=== PATIENT | male | born 1940 | race Caucasian/White ===

== ENCOUNTER 2016-08-19 17:58 | Emergency (ER) | payer MEDICARE ==
[2016-08-19] MEDS ORDERED: SODIUM CHLORIDE 0.9% 500 ML IV STA (18:19)
[2016-08-19] MEDS ORDERED: MECLIZINE 12.5 MG TAB PO STA (18:19)
[2016-08-19] MEDS ORDERED: SODIUM CHLORIDE 0.9% 1,000 ML IV STA (18:19)
[2016-08-19 18:42] LABS: Basophils % (A) 0 %; CH 31.2; CHCM 34.8; Eosinophils # (A) 0.1 k/uL (0-0.7); Eosinophils % (A) 1 %; HCT 38.3 % (39.0-53.0); HGB 13.5 gm/dL (13.0-17.5); Luc # (Auto) 0.11; Luc % (Auto) 1; Lymphocytes # (A) 1.1 k/uL (1.0-4.8); Lymphocytes % (A) 14 %; MCH 31.7 pg (25.0-35.0); MCHC 35.3 g/dL (31.0-37.0); Mean Platelet Volume 7.3; Monocytes # (A) 0.5 k/uL (0-1.0); Monocytes % (A) 7 %; Neutrophils % (A) 77 %; RBC 4.25 m/uL (4.30-5.90); RDW 12.9 % (11.5-15.5); WBC 7.8 k/uL (3.8-10.6); WBC (Perox) 7.39
--- NOTE | 2016-08-19 18:43 | ED ---
Dizziness HPI - General Chief Complaint: Dizziness Stated Complaint: dizziness Time Seen by Provider: 08/19/16 18:10 Source: patient, EMS Mode of arrival: EMS Limitations: no limitations - History of Present Illness Initial Comments: Planing about lightheadedness for the last 3 days, he stated has been unsteady in her balance has been poor. He had some medication changes by his family doctor, he stated that is one of the neuropathy medication she been on for a week now. He denies any headaches no chest pain no shortness of breath no pleuritic chest pain no fever no chills he does sweat quite a quite a lot but has not new - Related Data Home Medications Medication Instructions Recorded Confirmed Aspirin 81 mg PO DAILY 08/19/16 08/19/16 Atorvastatin [Lipitor] 40 mg PO DAILY 08/19/16 08/19/16 Calcium Carbonate/Vitamin D3 1 tab PO DAILY 08/19/16 08/19/16 [Calcium 500-Vit D3 200 Tablet] Furosemide [Lasix] 40 mg PO DAILY 08/19/16 08/19/16 Gabapentin [Neurontin] 300 - 600 mg PO HS 08/19/16 08/19/16 Glimepiride [Amaryl] 4 mg PO BID 08/19/16 08/19/16 Glucosam/Johnny-Msm1/C/Drew/Bosw 1 tab PO DAILY 08/19/16 08/19/16 [Glucosamine-Chondroitin Tablet] Lisinopril [Zestril] 20 mg PO DAILY 08/19/16 08/19/16 Metoprolol Succinate (ER) [Toprol 25 mg PO DAILY 08/19/16 08/19/16 Xl] Pioglitazone [Actos] 30 mg PO DAILY 08/19/16 08/19/16 Potassium Chloride [K-Tab ER] 10 meq PO DAILY 08/19/16 08/19/16 Tamsulosin HCl [Flomax] 0.4 mg PO DAILY 08/19/16 08/19/16 metFORMIN HCL [Glucophage] 1,000 mg PO BID 08/19/16 08/19/16 Allergies Allergy/AdvReac Type Severity Reaction Status Date / Time No Known Allergies Allergy Verified 08/19/16 19:05 Review of Systems ROS Statement: Those systems with pertinent positive or pertinent negative responses have been documented in the HPI. ROS Other: All systems not noted in ROS Statement are negative. Past Medical History Past Medical History: No Reported History History of Any Multi-Drug Resistant Organisms: None Reported Past Surgical History: Orthopedic Surgery Additional Past Surgical History / Comment(s): shoulder repracement, knee replacement, hip replacement Past Psychological History: No Psychological Hx Reported Smoking Status: Never smoker Past Alcohol Use History: None Reported Past Drug Use History: None Reported General Exam - General Exam Comments Initial Comments: General: The patient is awake and alert, in no distress, and does not appear acutely ill. He does look tired but GCS is 15 Skin: Skin is warm and dry and no rashes or lesions are noted. Eye: Pupils are equal, round and reactive to light, extra-ocular movements are intact; there is normal conjunctiva bilaterally. Ears, nose, mouth and throat: There are moist mucous membranes and no oral lesions. Neck: The neck is supple, there is no tenderness or JVD. Cardiovascular: There is a regular rate and rhythm. No murmur, rub or gallop is appreciated. Respiratory: To auscultation bilateral, no wheezing no rhonchi no distress respiratory leyva noticed Gastrointestinal: Soft, non-distended, non-tender abdomen without masses or organomegaly noted. There is no rebound or guarding present. Bowel sounds are unremarkable. Back: There is no tenderness to palpation in the midline. There is no obvious deformity. Musculoskeletal: Normal ROM, no tenderness, There is no pedal edema. There is no calf tenderness or swelling. No cords were appreciated. Neurological: CN II-XII intact, Cranial nerves III through XII are intact. There are no obvious motor or sensory deficits. Coordination appears grossly intact. Speech is normal. Psychiatric: Cooperative, appropriate mood & affect, normal judgment. Limitations: no limitations Course Vital Signs 08/19/16 08/19/16 08/19/16 18:01 18:07 18:37 Temperature 97.3 F L Pulse Rate 73 Pulse Rate [ 74 Sitting] Pulse Rate [ 83 Standing] Pulse Rate [ 81 Supine] Respiratory 18 20 Rate Blood Pressure 138/73 Blood Pressure 118/60 [Sitting] Blood Pressure 118/63 [Standing] Blood Pressure 127/67 [Supine] O2 Sat by Pulse 96 Oximetry 08/19/16 08/19/16 08/19/16 19:45 20:13 20:58 Temperature 98.1 F Pulse Rate 83 73 91 Pulse Rate [ Sitting] Pulse Rate [ Standing] Pulse Rate [ Supine] Respiratory 20 15 18 Rate Blood Pressure 103/58 113/66 141/67 Blood Pressure [Sitting] Blood Pressure [Standing] Blood Pressure [Supine] O2 Sat by Pulse 97 97 94 L Oximetry Patient was reassessed at 02/03/1945 and all his labs and imaging were reviewed and discussed with the family and the patient is CBC, CMP, chest x-ray, troponin and head CT including chest x-ray is unremarkable we can see how well he ambulates and then also recommended that he couldn't hold off his neuropathy medication which was started about a week ago All the patient was reassessed at term 2109, all his labs are negative troponin is negative chest x-rays Coumadin he hasn't no chest pain he ambulated well with the nurse with oral and he was to go, considering the EKG EKG does look somewhat different we'll place he has no chest pain patient was encouraged to see cardiology inpatient or outpatient patient said he wants to hold this off for now he wants to go to the patient was discharged at 2149 EKG Findings - EKG Comments: EKG Findings:: EKG is normal sinus rhythm ventricular rate of 72 PA interval is 170 QRS duration is 150 QT/QTc is 424/478 review of this EKG does show a right bundle-branch block no ST elevation noticed this EKG, do not have an old EKG to compare with Medical Decision Making - Lab Data Result diagrams: 08/19/16 18:03 08/19/16 18:03 Lab Results 08/19/16 08/19/16 08/19/16 Range/Units 18:03 18:03 18:03 WBC 7.8 (3.8-10.6) k/uL RBC 4.25 L (4.30-5.90) m/uL Hgb 13.5 (13.0-17.5) gm/dL Hct 38.3 L (39.0-53.0) % MCV 90.0 (80.0-100.0) fL MCH 31.7 (25.0-35.0) pg MCHC 35.3 (31.0-37.0) g/dL RDW 12.9 (11.5-15.5) % Plt Count 177 (150-450) k/uL Neutrophils % 77 % Lymphocytes % 14 % Monocytes % 7 % Eosinophils % 1 % Basophils % 0 % Neutrophils # 6.0 (1.3-7.7) k/uL Lymphocytes # 1.1 (1.0-4.8) k/uL Monocytes # 0.5 (0-1.0) k/uL Eosinophils # 0.1 (0-0.7) k/uL Basophils # 0.0 (0-0.2) k/uL Sodium 142 (137-145) mmol/L Potassium 4.9 (3.5-5.1) mmol/L Chloride 104 (98-107) mmol/L Carbon Dioxide 25 (22-30) mmol/L Anion Gap 13 mmol/L BUN 39 H (9-20) mg/dL Creatinine 1.20 (0.66-1.25) mg/dL Est GFR (MDRD) Af Amer >60 (>60 ml/min/1.73 sqM) Est GFR (MDRD) Non-Af 59 (>60 ml/min/1.73 sqM) Glucose 200 H (74-99) mg/dL Calcium 9.2 (8.4-10.2) mg/dL Total Bilirubin 0.3 (0.2-1.3) mg/dL AST 25 (17-59) U/L ALT 33 (21-72) U/L Alkaline Phosphatase 71 (38-126) U/L Troponin I <0.012 (0.000-0.034) ng/mL Total Protein 6.8 (6.3-8.2) g/dL Albumin 3.9 (3.5-5.0) g/dL Disposition Clinical Impression: Dizziness, Unsteady gait Disposition: HOME SELF-CARE Condition: Good Instructions: Dizziness (ED) Referrals: Sergio Correa DO [Primary Care Provider] - 1-2 days
[2016-08-19 18:53] LABS: ALT 33 U/L (21-72); AST 25 U/L (17-59); Alkaline Phosphatase 71 U/L (38-126); Anion Gap 13 mmol/L; Blood Urea Nitrogen 39 mg/dL (9-20); Calcium 9.2 mg/dL (8.4-10.2); Carbon Dioxide 25 mmol/L (22-30); Chloride 104 mmol/L (98-107); Glucose 200 mg/dL (74-99); Non-African American GFR(MDRD) 59 (>60 ml/min/1.73 sqM); Potassium 4.9 mmol/L (3.5-5.1); Sodium 142 mmol/L (137-145); Total Bilirubin 0.3 mg/dL (0.2-1.3); Total Protein 6.8 g/dL (6.3-8.2)
--- NOTE | 2016-08-19 18:59 | XR ---
EXAMINATION TYPE: XR chest 2V DATE OF EXAM: 08/19/2016 COMPARISON: 01/25/2012 HISTORY: Dizziness TECHNIQUE: Frontal and lateral views of the chest are obtained. FINDINGS: There is no heart failure nor confluent pneumonic infiltrate. Heart size is normal. There are chest leads. There are are bilateral shoulder prosthesis. There is no pleural effusion. There is spurring in the thoracic spine. IMPRESSION: No active cardiopulmonary disease. Normal heart. No change.
--- NOTE | 2016-08-19 19:39 | CT ---
EXAMINATION TYPE: CT brain wo con DATE OF EXAM: 08/19/2016 COMPARISON: EXAMINATION TYPE: CT brain wo con DATE OF EXAM: 08/19/2016 COMPARISON: NONE HISTORY: Dizziness and nausea x 3-[address] DLP: 978.20 mGycm Automated exposure control for dose reduction was used. FINDINGS: There is cerebral cortical atrophy. There is no mass effect nor midline shift. There is no sign of in tracranial hemorrhage. The calvarium is intact. IMPRESSION: NEGATIVE CT SCAN OF THE BRAIN. MILD ATROPHY. HISTORY: Dizziness and nausea x 3-[address] DLP: 978.20 mGycm Automated exposure control for dose reduction was used. FINDINGS: IMPRESSION:
[2016-08-19 20:15] VITALS: TEMP 98.1
[2016-08-19 20:59] VITALS: BP 141/67; PULSE 91; RESP 18
== END 2016-08-19 21:31 | disposition home or self-care (01) ==
LOC: EC 17:58
DX: R42 Dizziness and giddiness (principal); R26.0 Ataxic gait; Z79.82 Long term (current) use of aspirin; Z79.84 Long term (current) use of oral hypoglycemic drugs; Z79.899 Other long term (current) drug therapy; R40.2412 Glasgow coma scale score 13-15, at arrival to emergency department
CPT/HCPCS: 36415; 70450; 71020; 80053; 84484; 85025; 93005; 96360; 96361; 99285

== ENCOUNTER → 2022-12-28 | Outpatient (CLI) | payer MEDICARE ==
--- NOTE | 2022-12-28 12:13 | XR ---
EXAMINATION TYPE: XR hand complete RT DATE OF EXAM: 12/28/2022 11:45 AM INDICATION: Patient age:Male; 82 years old; Reason for study: [id number] RT HAND PAIN; [facility]. COMPARISON: None TECHNIQUE: Frontal, lateral and oblique views of the right hand were obtained. FINDINGS: No acute fracture or dislocation. Remote appearing comminuted fracture with sclerosis invol ving the fourth proximal phalanx. Additional remote fractures of the fifth metacarpal. Soft tissue sw elling of the dorsal hand identified. No osseous erosions. Round calcification within the dorsal wris t soft tissues. IMPRESSION: 1. No acute osseous pathology. 2. Remote appearing fractures of the fourth proximal phalanx and fifth metacarpal. 3. Soft tissue swelling of the dorsal hand.
== END | disposition home or self-care (01) ==
LOC: RADXRYALE 11:31
PROVIDERS: ATTEND Physician Assistant
DX: M79.89 Other specified soft tissue disorders (principal); M79.641 Pain in right hand

== ENCOUNTER 2023-01-04 10:16 | Inpatient (IN) | payer MEDICARE ==
--- NOTE | 2023-01-04 10:48 | ED ---
Extremity Problem HPI - General Chief complaint: Extremity Problem,Nontraumatic Stated complaint: infection/weakness Time Seen by Provider: 01/04/23 10:28 Source: patient, family, RN notes reviewed Mode of arrival: ambulatory Limitations: no limitations - History of Present Illness Initial comments: Patient is an 82-year-old male presented ER chief complaint of left third finger swelling and pain. Patient states it has been bugging him for the past week but on 01/01/23, it swelled up and started having drainage. Patient is a diabetic. Patient denies any known traumas. Patient states that he has been taking leftover amoxicillin for about 4 days without improvement. Patient states this pain as a 6 out of 10 currently. Patient states movement is painful and mild paresthesias to the tip of his finger. He does report recent chills but denies knwon fevers. Patient denies headaches, chest pain, shortness of breath, abdoominal pain, or peripheral edema. - Related Data Home Medications Medication Instructions Recorded Confirmed Atorvastatin [Lipitor] 40 mg PO DAILY 08/19/16 01/04/23 Furosemide [Lasix] 40 mg PO DAILY 08/19/16 01/04/23 Glimepiride [Amaryl] 4 mg PO BID 08/19/16 01/04/23 Tamsulosin HCl [Flomax] 0.8 mg PO DAILY 08/19/16 01/04/23 lisinopriL [Zestril] 20 mg PO DAILY 08/19/16 01/04/23 metFORMIN HCL [Glucophage] 500 mg PO BID 08/19/16 01/04/23 DULoxetine HCL [Cymbalta] 30 mg PO DAILY 01/04/23 01/04/23 Metoprolol Tartrate 25 mg PO DAILY 01/04/23 01/04/23 Pioglitazone [Actos] 45 mg PO DAILY 01/04/23 01/04/23 sitaGLIPtin [Januvia] 100 mg PO DAILY 01/04/23 01/04/23 Allergies Allergy/AdvReac Type Severity Reaction Status Date / Time No Known Allergies Allergy Verified 01/04/23 11:35 Review of Systems ROS Statement: Those systems with pertinent positive or pertinent negative responses have been documented in the HPI. ROS Other: All systems not noted in ROS Statement are negative. Past Medical History Past Medical History: Diabetes Mellitus, Hyperlipidemia, Hypertension History of Any Multi-Drug Resistant Organisms: None Reported Past Surgical History: Orthopedic Surgery Additional Past Surgical History / Comment(s): shoulder repracement, knee replacement, hip replacement Past Psychological History: No Psychological Hx Reported Smoking Status: Never smoker Past Alcohol Use History: None Reported Past Drug Use History: None Reported General Exam Limitations: no limitations General appearance: alert, in no apparent distress Respiratory exam: Present: normal lung sounds bilaterally. Absent: respiratory distress, wheezes, rales, rhonchi, stridor Cardiovascular Exam: Present: regular rate, normal rhythm, normal heart sounds. Absent: systolic murmur, diastolic murmur, rubs, gallop, clicks Extremities exam: Present: other (Left third digit is erythematous, edematous and has 2 white drainage points noted at the DIP joint. Erythema is traveling approximately. Patient has mild paresthesias to tip of finger. Pain on the flexor surface of his finger. Limtied range of motion due to swelling. 2+ left radial pulse) Neurological exam: Present: alert, oriented X3, CN II-XII intact Psychiatric exam: Present: normal affect, normal mood Skin exam: Present: warm, dry, intact, normal color. Absent: rash Course Vital Signs 01/04/23 01/04/23 10:24 12:30 Temperature 98.4 F 98.0 F Pulse Rate 83 Respiratory 20 Rate Blood Pressure 98/56 O2 Sat by Pulse 97 Oximetry Medical Decision Making - Medical Decision Making Was pt. sent in by a medical professional or institution (, PA, PRODUCT DISTRIBUTION SPECIALIST, urgent care, hospital, or fci...) When possible be specific @ -No Did you speak to anyone other than the patient for history (EMS, parent, family, police, friend...)? What history was obtained from this source @ -Family Did you review nursing and triage notes (agree or disagree)? Why? @ -I reviewed and agree with nursing and triage notes Were old charts reviewed (outside hosp., previous admission, EMS record, old EKG, old radiological studies, urgent care reports/EKG's, fci records)? Report findings @ -No old charts were reviewed Differential Diagnosis (chest pain, altered mental status, abdominal pain women, abdominal pain men, vaginal bleeding, weakness, fever, dyspnea, syncope, headache, dizziness, GI bleed, back pain, seizure, CVA, palpatations, mental health, musculoskeletal)? @ -Differential Musculoskeletal: Muscular strain, contusion, ligament sprain, fracture, arthritis, septic arthritis, bursitis, cellulitis, muscle spasm, nerve compression, DVT, arterial occlusion, herpes zoster, electrolyte abnormality, tumor.... This is not meant to be in all inclusive list. EKG interpreted by me (3pts min.). @ -None X-rays interpreted by me (1pt min.). @ -Left hand x-ray shows soft tissue swelling of third digit. There is also some irregularities of the DIP joint of the third digit. CT interpreted by me (1pt min.). @ -None done U/S interpreted by me (1pt. min.). @ -None done What testing was considered but not performed or refused? (CT, X-rays, U/S, labs)? Why? @ -None What meds were considered but not given or refused? Why? @ -None Did you discuss the management of the patient with other professionals (professionals i.e. , PA, PRODUCT DISTRIBUTION SPECIALIST, lab, RT, psych nurse, social science instructor, family dinner service specialist, teacher, training and development officer, piano case and bench assembler)? Give summary @ -Yes, I discussed this case with Carmella from [facility] who advised admission and IV antibiotics. I also spoke with Dr. Bennett from medicine for admission who advised 1L IV fluids. Was smoking cessation discussed for >3mins.? @ -No Was critical care preformed (if so, how long)? @ -No Were there social determinants of health that impacted care today? How? (Homelessness, low income, unemployed, alcoholism, drug addiction, transportation, low edu. Level, literacy, decrease access to med. care, long-term, rehab)? @ -No Was there de-escalation of care discussed even if they declined (Discuss DNR or withdrawal of care, Hospice)? DNR status @ -No What co-morbidities impacted this encounter? (DM, HTN, Smoking, COPD, CAD, Cancer, CVA, ARF, Chemo, Hep., AIDS, mental health diagnosis, sleep apnea, morbi d obesity)? @ -Diabetes mellitus, HTN, hyperlipidemia Was patient admitted / discharged? Hospital course, mention meds given and route, prescriptions, significant lab abnormalities, going to OR and other pertinent info. @ -Admitted. Upon examination patient was holding finger in a flexed position. Patient had pain with any movement. There was paresthesias of the tip of the third left digit. Labs obtained in the ER showed a white blood cell count of 9.6, lactic of 2.2, CRP of 20.8. Wound cultures and blood cultures were obtained in the ER. X-ray of the left hand shows soft tissue swelling of the third digit. There is also some irregularities of the DIP joint. I spoke with Carmella from [facility] who advised admission and IV antibiotics. I also spoke with Dr. Bennett from medicine for admission. Patient will be started on IV Unasyn and vancomycin. Patient will receive 1 L of IV fluids. She will be admitted for further care. Infectious disease and orthopedics was consulted. Patient expressed understanding and agreement with care plan. Undiagnosed new problem with uncertain prognosis? @ -No Drug Therapy requiring intensive monitoring for toxicity (Heparin, Nitro, Insulin, Cardizem)? @ -No Were any procedures done? @ -No Diagnosis/symptom? @ -Left third digit finger infection Acute, or Chronic, or Acute on Chronic? @ -Acute Uncomplicated (without systemic symptoms) or Complicated (systemic symptoms)? @ -Complicated Side effects of treatment? @ -No Exacerbation, Progression, or Severe Exacerbation? @ -No Poses a threat to life or bodily function? How? (Chest pain, [place], [place], pneumonia, PE, COPD, DKA, ARF, appy, cholecystitis, CVA, Diverticulitis, Homicidal, Suicidal, threat to staff... and all critical care pts) @ -Yes, infection could progress into sepsis. - Lab Data Result diagrams: 01/04/23 10:20 01/04/23 10:20 Lab Results 01/04/23 01/04/23 01/04/23 Range/Units 10:20 10:20 10:20 WBC 9.6 (3.8-10.6) k/uL RBC 3.25 L (4.30-5.90) m/uL Hgb 10.1 L (13.0-17.5) gm/dL Hct 31.8 L (39.0-53.0) % MCV 98.0 (80.0-100.0) fL MCH 31.2 (25.0-35.0) pg MCHC 31.8 (31.0-37.0) g/dL RDW 13.0 (11.5-15.5) % Plt Count 240 (150-450) k/uL MPV 8.2 Neutrophils % 79 % Lymphocytes % 9 % Monocytes % 8 % Eosinophils % 2 % Basophils % 0 % Neutrophils # 7.6 (1.3-7.7) k/uL Lymphocytes # 0.9 L (1.0-4.8) k/uL Monocytes # 0.8 (0-1.0) k/uL Eosinophils # 0.1 (0-0.7) k/uL Basophils # 0.0 (0-0.2) k/uL Hypochromasia Slight Sodium 141 (137-145) mmol/L Potassium 4.5 (3.5-5.1) mmol/L Chloride 109 H (98-107) mmol/L Carbon Dioxide 21 L (22-30) mmol/L Anion Gap 11 mmol/L BUN 60 H (9-20) mg/dL Creatinine 1.56 H (0.66-1.25) mg/dL Est GFR (CKD-EPI)AfAm 47 (>60 ml/min/1.73 sqM) Est GFR (CKD-EPI)NonAf 41 (>60 ml/min/1.73 sqM) Glucose 186 H (74-99) mg/dL Plasma Lactic Acid Louis 2.2 H* (0.7-2.0) mmol/L Calcium 9.2 (8.4-10.2) mg/dL Total Bilirubin 0.4 (0.2-1.3) mg/dL AST 27 (17-59) U/L ALT 25 (4-49) U/L Alkaline Phosphatase 80 (38-126) U/L C-Reactive Protein 20.8 H (<1.0) mg/dL Total Protein 6.5 (6.3-8.2) g/dL Albumin 3.2 L (3.5-5.0) g/dL - Radiology Data Radiology results: report reviewed, image reviewed Disposition Clinical Impression: Finger infection Disposition: ADMITTED IP TO THIS [facility] Condition: Stable Referrals: Elisabeth Robin PAC [REFERRING] - 1-2 days Time of Disposition: 12:34
[2023-01-04 11:04] LABS: Basophils % (A) 0 %; Eosinophils # (A) 0.1 k/uL (0-0.7); Eosinophils % (A) 2 %; HCT 31.8 % (39.0-53.0); HGB 10.1 gm/dL (13.0-17.5); Hypochromasia Slight; Lymphocytes # (A) 0.9 k/uL (1.0-4.8); Lymphocytes % (A) 9 %; MCH 31.2 pg (25.0-35.0); MCHC 31.8 g/dL (31.0-37.0); Mean Platelet Volume 8.2; Monocytes # (A) 0.8 k/uL (0-1.0); Monocytes % (A) 8 %; Neutrophils # (A) 7.6 k/uL (1.3-7.7); Neutrophils % (A) 79 %; Platelet Count 240 k/uL (150-450); RBC 3.25 m/uL (4.30-5.90); WBC 9.6 k/uL (3.8-10.6)
[2023-01-04 11:16] LABS: ALT 25 U/L (4-49); AST 27 U/L (17-59); African American GFR (CKD) 47 (>60 ml/min/1.73 sqM); Albumin 3.2 g/dL (3.5-5.0); Alkaline Phosphatase 80 U/L (38-126); Anion Gap 11 mmol/L; Blood Urea Nitrogen 60 mg/dL (9-20); Calcium 9.2 mg/dL (8.4-10.2); Carbon Dioxide 21 mmol/L (22-30); Chloride 109 mmol/L (98-107); Glucose 186 mg/dL (74-99); Non-African American GFR(CKD) 41 (>60 ml/min/1.73 sqM); Potassium 4.5 mmol/L (3.5-5.1); Sodium 141 mmol/L (137-145); Total Bilirubin 0.4 mg/dL (0.2-1.3); Total Protein 6.5 g/dL (6.3-8.2)
[2023-01-04 11:27] LABS: C Reactive Protein 20.8 mg/dL (<1.0)
--- NOTE | 2023-01-04 11:36 | XR ---
EXAMINATION TYPE: XR hand complete LT DATE OF EXAM: 01/04/2023 11:14 AM CLINICAL INDICATION:Male, 82 years old with history of pain; [facility] COMPARISON: None TECHNIQUE: XR hand complete LT Frontal, lateral and oblique views were obtained. FINDINGS/IMPRESSION: * The third digit distal interphalangeal joint has some irregular appearance around the joint with s oft tissue swelling. Correlate for infection and history of trauma. * Multifocal degeneration with joint space narrowing and osteophyte formation. There is suspected re mote injury to the second metacarpal head.
[2023-01-04] MEDS ORDERED: NALOXONE 0.4 MG/ML 1 ML VIAL IV PRN (12:09)
[2023-01-04] MEDS ORDERED: ONDANSETRON 4 MG/2 ML VIAL IVP PRN (12:09)
[2023-01-04] MEDS ORDERED: AMPICILLIN-SULBACTAM 3 GM in SODIUM CHLORIDE 0.9% 100 ML IVPB STA (12:12)
[2023-01-04] MEDS ORDERED: VANCOMYCIN IV PER PHARMACY 1 EACH MISC MISCELLANE PRN (12:12)
[2023-01-04] MEDS ORDERED: SODIUM CHLORIDE 0.9% 1,000 ML IV STA (12:12)
[2023-01-04] MEDS ORDERED: VANCOMYCIN 2,000 MG in SODIUM CHLORIDE 0.9% 500 ML 500 ML IVPB ONE (13:00)
[2023-01-04 15:38] LABS: Erythrocyte Sedimentation Rate 99 mm/Hr (0-20)
--- NOTE | 2023-01-04 16:22 | P.CNOR ---
History of Present Illness - HPI Consult date: 01/04/23 Consult reason: other (Left middle finger infection) History of present illness: The patient is an 82 y/o male with a past medical history including diabetes, hypertension, and osteoarthritis, who presented to the emergency department at [facility] with of left middle finger infection. He states the finger has been worsening over the past week. There has been drainage. He denies any fever or feeling unwell. There is pain that now extends into the base of the finger into the hand. The swelling and redness has increased since last Wednesday and he presented to the ER for evaluation. Orthopedic hand surgery has been consulted for further evaluation and care. Review of Systems Constitutional: Denies chills, Denies fatigue, Denies fever Cardiovascular: Denies chest pain, Denies rapid heart beat Respiratory: Denies cough Gastrointestinal: Denies diarrhea, Denies nausea, Denies vomiting Musculoskeletal: left: hand pain, hand stiffness, hand swelling Past Medical History Past Medical History: Diabetes Mellitus, Hyperlipidemia, Hypertension History of Any Multi-Drug Resistant Organisms: None Reported Past Surgical History: Orthopedic Surgery Additional Past Surgical History / Comment(s): shoulder repracement, knee replacement, hip replacement Past Psychological History: No Psychological Hx Reported Smoking Status: Never smoker Past Alcohol Use History: None Reported Past Drug Use History: None Reported Medications and Allergies Home Medications Medication Instructions Recorded Confirmed Type Atorvastatin [Lipitor] 40 mg PO DAILY 08/19/16 01/04/23 History Furosemide [Lasix] 40 mg PO DAILY 08/19/16 01/04/23 History Glimepiride [Amaryl] 4 mg PO BID 08/19/16 01/04/23 History Tamsulosin HCl [Flomax] 0.8 mg PO DAILY 08/19/16 01/04/23 History lisinopriL [Zestril] 20 mg PO DAILY 08/19/16 01/04/23 History metFORMIN HCL [Glucophage] 500 mg PO BID 08/19/16 01/04/23 History DULoxetine HCL [Cymbalta] 30 mg PO DAILY 01/04/23 01/04/23 History Metoprolol Tartrate 25 mg PO DAILY 01/04/23 01/04/23 History Pioglitazone [Actos] 45 mg PO DAILY 01/04/23 01/04/23 History sitaGLIPtin [Januvia] 100 mg PO DAILY 01/04/23 01/04/23 History Allergies Allergy/AdvReac Type Severity Reaction Status Date / Time No Known Allergies Allergy Verified 01/04/23 11:35 Physical Examination The patient is an 82 y/o male who is in no acute distress. He is alert and oriented x3. Exam of the left middle finger reveals diffuse swelling and erythema. The erythema does extend into the A-1 juan area of the finger. There are two openings on the dorsal aspect of the DIP joint (radial and ulnar) that appear purulent. There is also a purulent area along the flexor tendon as well. There is pain to the entire finger and into the base of the finger extending into the palm. No pain to the carpal tunnel area. Flexion and extension of the finger is limited to pain. Numbness to the fingertip. Otherwise, neurological and circulatory status is intact. Results X-ray of the left hand reveals diffuse small joint OA. Soft tissue swelling to the left middle finger. - Labs Labs: Abnormal Lab Results - Last 24 Hours (Table) 01/04/23 01/04/23 01/04/23 Range/Units 10:20 10:20 10:20 RBC 3.25 L (4.30-5.90) m/uL Hgb 10.1 L (13.0-17.5) gm/dL Hct 31.8 L (39.0-53.0) % Lymphocytes # 0.9 L (1.0-4.8) k/uL ESR 99 H (0-20) mm/Hr Chloride 109 H (98-107) mmol/L Carbon Dioxide 21 L (22-30) mmol/L BUN 60 H (9-20) mg/dL Creatinine 1.56 H (0.66-1.25) mg/dL Glucose 186 H (74-99) mg/dL Plasma Lactic Acid Louis 2.2 H* (0.7-2.0) mmol/L C-Reactive Protein 20.8 H (<1.0) mg/dL Albumin 3.2 L (3.5-5.0) g/dL H & H 01/04/23 Range/Units 10:20 Hgb 10.1 L (13.0-17.5) gm/dL Hct 31.8 L (39.0-53.0) % Result Diagrams: 01/04/23 10:20 01/04/23 10:20 Assessment and Plan (1) Flexor tenosynovitis of finger Current Visit: Yes Status: Acute Code(s): M65.9 - SYNOVITIS AND TENOSYNOVITIS, UNSPECIFIED SNOMED Code(s): 391322266 (2) Finger infection Current Visit: Yes Status: Acute Code(s): L08.9 - LOCAL INFECTION OF THE SKIN AND SUBCUTANEOUS TISSUE, UNSP SNOMED Code(s): 245839687 (3) Diabetes Current Visit: Yes Status: Acute Code(s): E11.9 - TYPE 2 DIABETES MELLITUS WITHOUT COMPLICATIONS SNOMED Code(s): 07356369 (4) Hypertension Current Visit: Yes Status: Acute Code(s): I10 - ESSENTIAL (PRIMARY) HYPERTENSION SNOMED Code(s): 22091323 Plan: The clinical and x-ray findings were discussed with the patient. The case was discussed at length with Dr. Recinos. Surgical intervention is most likely needed. I discussed with the patient that he will need an extensive I&D of the finger on the dorsal and volar aspect. There is a possibility that he will need a ray resection of the finger depending on how extensive the finger infection is. The patient agrees with surgery. He will undergo a left middle finger I&D vs. ray resection tomorrow afternoon. He will be NPO at midnight. Continue IV antibiotics. Infectious disease has been consulted as well. We will continue to follow the patient closely.
[2023-01-04] MEDS ORDERED: DEXTROSE 50% SYRINGE 50 ML IVP PRN ×2 (16:28)
--- NOTE | 2023-01-04 16:31 | P.HPIM ---
History of Present Illness H&P Date: 01/04/23 Patient is a 82-year-old male with history of diabetes, hypertension, dyslipidemia presenting with left third digit swelling. He claims that it started about 1 week ago and he started noticing some pus draining from third digit DIP. He also started noticing worsening swelling and erythema spreading to his palms. This prompted him to come to the hospital. He denies any significant fevers, chills, abdominal pain, chest pain, urinary or bowel complaints. In the ED, temperature was 98.4, pulse 83, respiratory rate 20, blood pressure 98/56, saturating at 97% on room air. WBC 9.6, hemoglobin 10.1, ESR 99, chloride 109, bicarb 21, creatinine 1.56, glucose 186, lactate 2.2, CRP 20.8. An x-ray showed third digit distal interphalangeal joint with some irregular appearance around the joint consistent with soft tissue swelling, concerning for infection. Patient started on IV vancomycin and was given a dose of Unasyn as well. Orthopedic surgery and ID consulted. Pertinent positives and negatives as discussed in HPI, a complete review of systems was performed and all other systems are negative. Patient seen and examined at bedside. Vital signs reviewed General: nontoxic, no distress, appears at stated age, morbidly obese Derm: warm, dry Head: atraumatic, normocephalic, symmetric Eyes: EOMI, no lid lag, anicteric sclera, pupils equal round reactive to light ENT: Nose and ears atraumatic Neck: No thyromegaly, supple Mouth: no lip lesion, mucus membranes moist Cardiovascular: S1S2 reg, no murmur, trace peripheral edema Lungs: clear to auscultation bilateral, no rhonchi, no rales, no wheeze, no accessory muscle use Abdominal: soft, nontender to palpation, no guarding, no appreciable organomegaly Ext: Left third digit erythema and edema with slight purulent drainage on the dorsum aspect of the DIP Neuro: CN II-XII grossly intact Psych: Alert, oriented, appropriate affect Assessment/Plan: Active: Left third digit septic arthritis -ESR and CRP elevated -ID and orthopedic surgery consulted -wound cultures pending -Blood cultures pending -Continue IV vancomycin, monitor for renal toxicity -He denies any history of Gout Type 2 diabetes -Hold home medications, start on sliding scale insulin, monitor for hypoglycemia Mild acute kidney injury versus chronic kidney disease stage III Mild metabolic acidosis -Unknown baseline creatinine -Repeat BMP tomorrow Normocytic anemia -No active bleeding, outpatient workup -Repeat CBC tomorrow Resolved: Lactic acidosis Chronic: Hypertension Dyslipidemia The patient is admitted with an anticipated less than 2 midnight stay as serration status for evaluation of left finger septic arthritis. Surrogate decision-maker: Spouse CODE STATUS: Full code DVT prophylaxis: Subcu heparin Anticipated discharge date: Pending clinical course Anticipated discharge place: Pending clinical course A total of 55 minutes was spent on the care of this complex patient more than 50% of the time was spent in counseling and care coordination. Past Medical History Past Medical History: Diabetes Mellitus, Hyperlipidemia, Hypertension History of Any Multi-Drug Resistant Organisms: None Reported Past Surgical History: Orthopedic Surgery Additional Past Surgical History / Comment(s): shoulder repracement, knee replacement, hip replacement Past Psychological History: No Psychological Hx Reported Smoking Status: Never smoker Past Alcohol Use History: None Reported Past Drug Use History: None Reported Medications and Allergies Home Medications Medication Instructions Recorded Confirmed Type Atorvastatin [Lipitor] 40 mg PO DAILY 08/19/16 01/04/23 History Furosemide [Lasix] 40 mg PO DAILY 08/19/16 01/04/23 History Glimepiride [Amaryl] 4 mg PO BID 08/19/16 01/04/23 History Tamsulosin HCl [Flomax] 0.8 mg PO DAILY 08/19/16 01/04/23 History lisinopriL [Zestril] 20 mg PO DAILY 08/19/16 01/04/23 History metFORMIN HCL [Glucophage] 500 mg PO BID 08/19/16 01/04/23 History DULoxetine HCL [Cymbalta] 30 mg PO DAILY 01/04/23 01/04/23 History Metoprolol Tartrate 25 mg PO DAILY 01/04/23 01/04/23 History Pioglitazone [Actos] 45 mg PO DAILY 01/04/23 01/04/23 History sitaGLIPtin [Januvia] 100 mg PO DAILY 01/04/23 01/04/23 History Allergies Allergy/AdvReac Type Severity Reaction Status Date / Time No Known Allergies Allergy Verified 01/04/23 11:35 Physical Exam Vitals: Vital Signs Temp Pulse Resp BP Pulse Ox 01/04/23 13:15 79 16 137/81 94 L 01/04/23 12:30 98.0 F 01/04/23 10:24 98.4 F 83 20 98/56 97 Intake and Output 01/04/23 01/04/23 01/04/23 06:59 14:59 22:59 Other: Weight 111.13 kg Results CBC & Chem 7: 01/04/23 10:20 01/04/23 10:20 Labs: Abnormal Lab Results - Last 24 Hours (Table) 01/04/23 01/04/23 01/04/23 Range/Units 10:20 10:20 10:20 RBC 3.25 L (4.30-5.90) m/uL Hgb 10.1 L (13.0-17.5) gm/dL Hct 31.8 L (39.0-53.0) % Lymphocytes # 0.9 L (1.0-4.8) k/uL ESR 99 H (0-20) mm/Hr Chloride 109 H (98-107) mmol/L Carbon Dioxide 21 L (22-30) mmol/L BUN 60 H (9-20) mg/dL Creatinine 1.56 H (0.66-1.25) mg/dL Glucose 186 H (74-99) mg/dL Plasma Lactic Acid Louis 2.2 H* (0.7-2.0) mmol/L C-Reactive Protein 20.8 H (<1.0) mg/dL Albumin 3.2 L (3.5-5.0) g/dL
[2023-01-04 16:50] LABS: Glucose,Whole Blood 101 mg/dL (70-110)
[2023-01-04] MEDS: INSULIN ASPART (NovoLOG) 100 UNIT/ML VIAL SQ SCH ×2 (16:53→20:26)
[2023-01-04] MEDS: HYDROmorphone 0.5 MG/0.5 ML SYRINGE IVP PRN (20:25)
[2023-01-04 20:26] LABS: Glucose,Whole Blood 210 mg/dL (70-110)
[2023-01-05] MEDS: HEPARIN SODIUM,PORCINE 5,000 UNIT/ML 1 ML VIAL SQ SCH ×3 (00:05→13:38)
[2023-01-05 06:41] LABS: African American GFR (CKD) 59 (>60 ml/min/1.73 sqM); Anion Gap 6 mmol/L; Blood Urea Nitrogen 45 mg/dL (9-20); Carbon Dioxide 24 mmol/L (22-30); Chloride 112 mmol/L (98-107); Glucose 153 mg/dL (74-99); Non-African American GFR(CKD) 51 (>60 ml/min/1.73 sqM); Potassium 4.3 mmol/L (3.5-5.1); Sodium 142 mmol/L (137-145)
[2023-01-05 07:13] LABS: Glucose,Whole Blood 175 mg/dL (70-110)
[2023-01-05] MEDS: DULoxetine HCL 30 MG CAPSULE.DR PO SCH (08:05)
[2023-01-05] MEDS: TAMSULOSIN 0.4 MG CAP.ER.24H PO SCH (08:05)
[2023-01-05] MEDS: lisinopriL 20 MG TAB PO SCH (08:06)
[2023-01-05] MEDS: INSULIN ASPART (NovoLOG) 100 UNIT/ML VIAL SQ SCH ×4 (08:06→22:15)
[2023-01-05] MEDS: FUROSEMIDE 40 MG TAB PO SCH (08:06)
[2023-01-05] MEDS: ATORVASTATIN 40 MG TAB PO SCH (08:06)
[2023-01-05] MEDS: VANCOMYCIN 2,000 MG in SODIUM CHLORIDE 0.9% 500 ML 500 ML IVPB SCH (08:06)
[2023-01-05] MEDS: METOPROLOL TARTRATE 25 MG TAB PO SCH (08:06)
--- NOTE | 2023-01-05 08:54 | P.CONS ---
History of Present Illness - Reason for Consult Consult date: 01/04/23 finger infection Requesting physician: Toshia Bella - Chief Complaint swelling and redness to left middle finger x few days - History of Present Illness Patient is a 82-year-old male with a past medical history significant for diabetes mellitus hypertension hyperlipidemia presented to the hospital for evaluation of left third finger swelling and pain patient apparently did have a trauma to the left third finger about 3 weeks ago subsequent the patient noticed to have increasing swelling and redness that has progressed to get worse since 01/01/2023 patient has been complaining of diffuse swelling redness to the left third finger did have some drainage pain is mostly sharp to throbbing moderate intensity without radiation patient apparently did have some leftover amoxicillin which she took without any improvement and has been soaking his finger in Epsom salt without any improvement with the symptoms the patient presented to the hospital on arrival to the ER the patient was afebrile and no fever have been ordered subsequently patient did have a white count of 9.6 sed rate was 9 9 BUN/creatinine is mildly elevated lactic acid of 2.2 liver enzymes are normal blood and local cultures obtained which are currently pending patient was started on vancomycin infectious disease was consulted for further management of antibiotic therapy Past Medical History Past Medical History: Diabetes Mellitus, Hyperlipidemia, Hypertension History of Any Multi-Drug Resistant Organisms: None Reported Past Surgical History: Orthopedic Surgery Additional Past Surgical History / Comment(s): shoulder repracement, knee replacement, hip replacement Past Psychological History: No Psychological Hx Reported Smoking Status: Never smoker Past Alcohol Use History: None Reported Past Drug Use History: None Reported Medications and Allergies Home Medications Medication Instructions Recorded Confirmed Type Atorvastatin [Lipitor] 40 mg PO DAILY 08/19/16 01/04/23 History Furosemide [Lasix] 40 mg PO DAILY 08/19/16 01/04/23 History Glimepiride [Amaryl] 4 mg PO BID 08/19/16 01/04/23 History Tamsulosin HCl [Flomax] 0.8 mg PO DAILY 08/19/16 01/04/23 History lisinopriL [Zestril] 20 mg PO DAILY 08/19/16 01/04/23 History metFORMIN HCL [Glucophage] 500 mg PO BID 08/19/16 01/04/23 History DULoxetine HCL [Cymbalta] 30 mg PO DAILY 01/04/23 01/04/23 History Metoprolol Tartrate 25 mg PO DAILY 01/04/23 01/04/23 History sitaGLIPtin [Januvia] 100 mg PO DAILY 01/04/23 01/04/23 History Ampicillin Sodium/Sulbactam Na 3 gm IVPB Q6HR #40 each 01/11/23 Rx [Unasyn 3 gm Vial] HYDROcodone/APAP 5-325MG [[place] 1 each PO Q4HR PRN #10 tab 01/11/23 Rx 5-325] Hydrocortisone Cream 1 applic TOPICAL QID PRN each 01/11/23 Rx [Hydrocortisone 1% Cream] Sennosides [Senokot] 8.6 mg PO BID #0 tab 01/11/23 Rx diphenhydrAMINE [Benadryl] 25 mg PO BID PRN cap 01/11/23 Rx polyethylene glycoL 3350 [Miralax] 17 gm PO DAILY PRN packet 01/11/23 Rx Allergies Allergy/AdvReac Type Severity Reaction Status Date / Time No Known Allergies Allergy Verified 01/04/23 11:35 Physical Exam Vitals: Vital Signs Temp Pulse Resp BP Pulse Ox 01/04/23 13:15 79 16 137/81 94 L 01/04/23 12:30 98.0 F 01/04/23 10:24 98.4 F 83 20 98/56 97 Intake and Output 01/04/23 01/04/23 01/04/23 06:59 14:59 22:59 Other: Weight 111.13 kg GENERAL DESCRIPTION: Elderly male lying in bed, no distress. No tachypnea or accessory muscle of respiration use. HEENT: Shows Pallor , no scleral icterus. Oral mucous membrane is dry. NECK: Trachea central, no thyromegaly. LUNGS: Unlabored breathing. Clear to auscultation anteriorly. No wheeze or crackle. HEART: S1, S2, regular rate and rhythm. ABDOMEN: Soft, no tenderness , guarding or rigidity EXTREMITIES: swelling and redness to the left 3rd finger SKIN: No rash, no masses palpable. NEUROLOGICAL: The patient is awake, alert, oriented x3, mood and affect normal. Results CBC & Chem 7: 01/10/23 05:47 01/10/23 05:47 Labs: Abnormal Lab Results - Last 24 Hours (Table) 01/04/23 01/04/23 01/04/23 Range/Units 10:20 10:20 10:20 RBC 3.25 L (4.30-5.90) m/uL Hgb 10.1 L (13.0-17.5) gm/dL Hct 31.8 L (39.0-53.0) % Lymphocytes # 0.9 L (1.0-4.8) k/uL ESR 99 H (0-20) mm/Hr Chloride 109 H (98-107) mmol/L Carbon Dioxide 21 L (22-30) mmol/L BUN 60 H (9-20) mg/dL Creatinine 1.56 H (0.66-1.25) mg/dL Glucose 186 H (74-99) mg/dL Plasma Lactic Acid Louis 2.2 H* (0.7-2.0) mmol/L C-Reactive Protein 20.8 H (<1.0) mg/dL Albumin 3.2 L (3.5-5.0) g/dL Assessment and Plan Plan: 1patient presented to hospital left third finger abscess and cellulitis started with a trauma with evidence of abscess clinically likely from gram-positive skin bro failing outpatient oral amoxicillin therapy 2-await surgical drainage and deep culture 3-vancomycin pharmacy to dose with a target trough of 15 while watching kidney function and Vanco trough closely. We will follow on clinical condition and cultures to further adjust medication if needed Thank you for this consultation we will follow the patient along with you Dictation was produced using [employer] dictation software. please excuse any grammatical, word or spelling errors. Time with Patient: Greater than 30
[2023-01-05 09:08] LABS: Basophils # (A) 0.01 X 10*3/uL (0.00-0.10); Basophils % (A) 0.1 %; Eosinophils # (A) 0.16 X 10*3/uL (0.04-0.35); Eosinophils % (A) 2.1 %; HGB 9.6 g/dL (13.0-17.0); Lymphocytes # (A) 0.99 X 10*3/uL (0.90-5.00); Lymphocytes % (A) 12.8 %; MCH 31.3 pg (27.0-32.0); MCV 97.7 FL (80.0-97.0); Mean Platelet Volume 9.6 FL (9.5-12.2); Monocytes # (A) 0.87 X 10*3/uL (0.20-1.00); Monocytes % (A) 11.3 %; NRBC Per 100 WBC 0 X 10*3/uL (0.00-0.01); Neutrophils % (A) 72.7 %; Platelet Count 218 X 10*3/uL (140-440); RBC 3.07 X 10*6/uL (4.40-5.60); RDW 13.3 % (11.5-14.5); WBC 7.71 X 10*3/uL (4.50-10.00)
[2023-01-05 12:15] LABS: Glucose,Whole Blood 155 mg/dL (70-110)
--- NOTE | 2023-01-05 12:51 | P.PN ---
Subjective Progress Note Date: 01/05/23 Hospital Course: 82-year-old male with history of diabetes, hypertension, dyslipidemia presenting with left third digit swelling. In the ED, temperature was 98.4, pulse 83, respiratory rate 20, blood pressure 98/56, saturating at 97% on room air. WBC 9.6, hemoglobin 10.1, ESR 99, chloride 109, bicarb 21, creatinine 1.56, glucose 186, lactate 2.2, CRP 20.8. An x-ray showed third digit distal interphalangeal joint with some irregular appearance around the joint consistent with soft tissue swelling, concerning for infection. Patient started on IV vancomycin and was given a dose of Unasyn as well. Orthopedic surgery and ID consulted. Remains on IV vancomycin. Pending I&D. Subjective: Patient seen and examined at bedside. No acute events overnight. Pertinent positives and negatives as discussed above, a complete review of systems was performed and all other systems are negative. Vitals Signs Reviewed. General: nontoxic, no distress, appears at stated age, morbidly obese Derm: warm, dry Head: atraumatic, normocephalic, symmetric Eyes: EOMI, no lid lag, anicteric sclera, pupils equal round reactive to light ENT: Nose and ears atraumatic Neck: No thyromegaly, supple Mouth: no lip lesion, mucus membranes moist Cardiovascular: S1S2 reg, no murmur, trace peripheral edema Lungs: clear to auscultation bilateral, no rhonchi, no rales, no wheeze, no accessory muscle use Abdominal: soft, nontender to palpation, no guarding, no appreciable organomegaly Ext: Left third digit erythema and edema with slight purulent drainage on the dorsum aspect of the DIP Neuro: CN II-XII grossly intact Psych: Alert, oriented, appropriate affect Data Reviewed Today: Pertinent Labs: Hemoglobin 9.6, bicarb 24, creatinine 1.3, blood sugars range between 153-210, A1c 7.1, wound cultures positive for staph aureus and group B strep. Imaging: No new imaging Assessment and Plan: Active: Left third digit abscess and cellulitis Tenosynovitis -ID and orthopedic surgery following, pending I&D -Blood cultures pending -Continue IV vancomycin, monitor for renal toxicity Type 2 diabetes -Hold home medications, start on sliding scale insulin, monitor for hypoglycemia Normocytic anemia -No active bleeding, outpatient workup -Repeat CBC tomorrow Resolved: Lactic acidosis Metabolic acidosis Acute kidney injury Chronic: Hypertension Dyslipidemia DVT ppx : subcu heparin Code status: Full code Anticipated discharge place: Pending clinical course Anticipated discharge time: Pending clinical course Patient requiring IV vancomycin and close monitoring for his renal function. Also will be undergoing surgical procedure. Observation status change inpatient. Objective - Vital Signs Vital signs: Vital Signs Temp 97.4 F L 01/05/23 12:12 Pulse 84 01/05/23 12:12 Resp 20 01/05/23 12:12 BP 133/72 01/05/23 12:12 Pulse Ox 93 L 01/05/23 12:12 FiO2 Intake & Output 01/04/23 01/05/23 01/05/23 18:59 06:59 18:59 Intake Total 120 Output Total 1600 Balance -1480 Weight 110 kg Intake: Oral 120 Output: Urine 1600 Other: Voiding Method External Catheter External Catheter - Labs CBC & Chem 7: 01/05/23 05:41 01/05/23 05:41 Labs: Abnormal Lab Results - Last 24 Hours (Table) 01/04/23 01/04/23 01/05/23 Range/Units 10:20 20:17 05:41 RBC (4.40-5.60) X 10*6/uL Hgb (13.0-17.0) g/dL Hct (39.6-50.0) % MCV (80.0-97.0) FL ESR 99 H (0-20) mm/Hr Chloride (98-107) mmol/L BUN (9-20) mg/dL Creatinine (0.66-1.25) mg/dL Glucose (74-99) mg/dL POC Glucose (mg/dL) 210 H (70-110) mg/dL Hemoglobin A1c 7.1 H (<=6.0) % 01/05/23 01/05/23 01/05/23 Range/Units 05:41 05:41 07:12 RBC 3.07 L (4.40-5.60) X 10*6/uL Hgb 9.6 L (13.0-17.0) g/dL Hct 30.0 L (39.6-50.0) % MCV 97.7 H (80.0-97.0) FL ESR (0-20) mm/Hr Chloride 112 H (98-107) mmol/L BUN 45 H (9-20) mg/dL Creatinine 1.30 H (0.66-1.25) mg/dL Glucose 153 H (74-99) mg/dL POC Glucose (mg/dL) 175 H (70-110) mg/dL Hemoglobin A1c (<=6.0) % 01/05/23 Range/Units 12:13 RBC (4.40-5.60) X 10*6/uL Hgb (13.0-17.0) g/dL Hct (39.6-50.0) % MCV (80.0-97.0) FL ESR (0-20) mm/Hr Chloride (98-107) mmol/L BUN (9-20) mg/dL Creatinine (0.66-1.25) mg/dL Glucose (74-99) mg/dL POC Glucose (mg/dL) 155 H (70-110) mg/dL Hemoglobin A1c (<=6.0) % Microbiology - Last 24 Hours (Table) 01/04/23 10:58 Gram Stain - Preliminary Finger - Left Third Wound Culture - Preliminary Presumptive Staph aureus Strep agalactiae - (group b)
--- NOTE | 2023-01-05 14:53 | P.PN ---
Subjective Progress Note Date: 01/05/23 Principal diagnosis: Reason for follow-up is left third finger abscess and cellulitis Patient is a 82-year-old male with a past medical history significant for diabetes mellitus hypertension hyperlipidemia presented to the hospital for evaluation of left third finger swelling and pain , patient been diagnosed with the left third finger abscess on today's evaluation that is 01/05/2023, the patient continues to be afebrile, the patient is breathing comfortably on room air without the need for supplemental oxygen, the patient denies shortness of breath chest pain and no significant cough , patient denies nausea/vomiting, no abdominal pain and no diarrhea, the patient pain to the left third finger slightly decreased Patient did have a white count of 7.7, creatinine 1.30 or with group B strep and staph aureus Objective - Vital Signs Vital signs: Vital Signs Temp 97.4 F L 01/05/23 12:12 Pulse 84 01/05/23 12:12 Resp 20 01/05/23 12:12 BP 133/72 01/05/23 12:12 Pulse Ox 93 L 01/05/23 12:12 FiO2 Intake & Output 01/04/23 01/05/23 01/05/23 18:59 06:59 18:59 Intake Total 120 Output Total 1600 Balance -1480 Weight 110 kg Intake: Oral 120 Output: Urine 1600 Other: Voiding Method External Catheter External Catheter - Exam GENERAL DESCRIPTION: An elderly male lying in bed in no distress RESPIRATORY SYSTEM: Unlabored breathing , clear to auscultation anteriorly HEART: S1 S2 regular rate and rhythm , ABDOMEN: Soft , no tenderness EXTREMITIES: Left third finger still has significant swelling and redness no drainage - Labs CBC & Chem 7: 01/05/23 05:41 01/05/23 05:41 Labs: Abnormal Lab Results - Last 24 Hours (Table) 01/04/23 01/04/23 01/05/23 Range/Units 10: 20: 05:41 RBC (4.40-5.60) X 10*6/uL Hgb (13.0-17.0) g/dL Hct (39.6-50.0) % MCV (80.0-97.0) FL ESR 99 H (0-20) mm/Hr Chloride (98-107) mmol/L BUN (9-20) mg/dL Creatinine (0.66-1.25) mg/dL Glucose (74-99) mg/dL POC Glucose (mg/dL) 210 H (70-110) mg/dL Hemoglobin A1c 7.1 H (<=6.0) % 01/05/23 01/05/23 01/05/23 Range/Units 05:41 05:41 07:12 RBC 3.07 L (4.40-5.60) X 10*6/uL Hgb 9.6 L (13.0-17.0) g/dL Hct 30.0 L (39.6-50.0) % MCV 97.7 H (80.0-97.0) FL ESR (0-20) mm/Hr Chloride 112 H (98-107) mmol/L BUN 45 H (9-20) mg/dL Creatinine 1.30 H (0.66-1.25) mg/dL Glucose 153 H (74-99) mg/dL POC Glucose (mg/dL) 175 H (70-110) mg/dL Hemoglobin A1c (<=6.0) % 01/05/23 Range/Units 12:13 RBC (4.40-5.60) X 10*6/uL Hgb (13.0-17.0) g/dL Hct (39.6-50.0) % MCV (80.0-97.0) FL ESR (0-20) mm/Hr Chloride (98-107) mmol/L BUN (9-20) mg/dL Creatinine (0.66-1.25) mg/dL Glucose (74-99) mg/dL POC Glucose (mg/dL) 155 H (70-110) mg/dL Hemoglobin A1c (<=6.0) % Microbiology - Last 24 Hours (Table) 01/04/23 10:58 Gram Stain - Preliminary Finger - Left Third Wound Culture - Preliminary Presumptive Staph aureus Strep agalactiae - (group b) Assessment and Plan (1) Finger infection Current Visit: Yes Status: Acute Code(s): L08.9 - LOCAL INFECTION OF THE SKIN AND SUBCUTANEOUS TISSUE, UNSP SNOMED Code(s): 947775675 Plan: 1patient presented to hospital left third finger abscess and cellulitis started with a trauma with evidence of abscess clinically likely from gram-positive skin bro failing outpatient oral amoxicillin therapy, local cultures currently growing staph aureus with sensitivities pending and group B strep 2-await surgical drainage and deep culture apparently scheduled for this afternoon 3-patient to continue with vancomycin pharmacy to dose with a target trough of 15 while watching kidney function and Vanco trough closely. Multiple questions concerned were answered Dictation was produced using [employer] software. please excuse any grammatical, word or spelling errors. Time with Patient: Less than 30
[2023-01-05 17:22] LABS: Glucose,Whole Blood 158 mg/dL (70-110)
[2023-01-05] MEDS ORDERED: HYDROcodone/APAP 5-325MG 1 EACH TAB PO PRN (19:27)
[2023-01-05] MEDS ORDERED: PROPOFOL 10 MG/ML 20 ML VIAL IV ONE (21:04)
[2023-01-05] MEDS ORDERED: VASOPRESSIN 20 UNIT/ML 1 ML VIAL ONE (21:04)
[2023-01-05] MEDS ORDERED: LIDOCAINE 1% INJ 10MG/ML (20 ML MDV) ONE (21:04)
[2023-01-05] MEDS ORDERED: fentaNYL (PF) 50 MCG/ML 2 ML AMP ONE (21:04)
[2023-01-05] MEDS ORDERED: IV FLUID CONTINUATION 900 ML IV ONE (21:04)
[2023-01-05] MEDS ORDERED: PHENYLEPHRINE-0.9% NACL SYG 1,000 MCG/10 ML SYRINGE ONE (21:04)
[2023-01-05] MEDS ORDERED: ePHEDrine 50 MG/ML 1 ML VIAL ONE (21:04)
[2023-01-05] MEDS ORDERED: BUPIVACAINE (PF) 0.25% 10 ML VIAL SQ ONE (21:20)
[2023-01-05] MEDS ORDERED: LIDOCAINE 2%-EPI 1:100,000 20 ML VIAL SQ ONE (21:20)
[2023-01-05] MEDS ORDERED: GELATIN SPONGE,ABSORB (SMALL) 1 EACH SPONGE TOPICAL ONE (21:57)
[2023-01-05] MEDS ORDERED: BACITRACIN ZINC 500 UNIT/GM OINT 28.4 GM TUBE TOPICAL ONE (22:06)
[2023-01-05] MEDS ORDERED: LACTATED RINGERS 1,000 ML IV ONE (22:14)
[2023-01-06 00:28] LABS: Glucose,Whole Blood 151 mg/dL (70-110)
[2023-01-06] MEDS: HEPARIN SODIUM,PORCINE 5,000 UNIT/ML 1 ML VIAL SQ SCH ×4 (00:29→23:33)
[2023-01-06] MEDS: HYDROmorphone 0.5 MG/0.5 ML SYRINGE IVP PRN ×2 (01:10→07:59)
[2023-01-06 07:43] LABS: Glucose,Whole Blood 168 mg/dL (70-110)
[2023-01-06] MEDS: INSULIN ASPART (NovoLOG) 100 UNIT/ML VIAL SQ SCH ×4 (07:49→21:32)
[2023-01-06] MEDS: VANCOMYCIN 2,000 MG in SODIUM CHLORIDE 0.9% 500 ML 500 ML IVPB SCH (07:49)
[2023-01-06] MEDS: METOPROLOL TARTRATE 25 MG TAB PO SCH (07:50)
[2023-01-06] MEDS: lisinopriL 20 MG TAB PO SCH (07:50)
[2023-01-06] MEDS: DULoxetine HCL 30 MG CAPSULE.DR PO SCH (07:50)
[2023-01-06] MEDS: ATORVASTATIN 40 MG TAB PO SCH (07:50)
[2023-01-06] MEDS: TAMSULOSIN 0.4 MG CAP.ER.24H PO SCH (07:50)
[2023-01-06] MEDS: FUROSEMIDE 40 MG TAB PO SCH (07:50)
[2023-01-06 08:50] LABS: Basophils # (A) 0.02 X 10*3/uL (0.00-0.10); Basophils % (A) 0.3 %; Eosinophils # (A) 0.13 X 10*3/uL (0.04-0.35); Eosinophils % (A) 1.8 %; HCT 30.3 % (39.6-50.0); HGB 9.4 g/dL (13.0-17.0); Lymphocytes # (A) 0.79 X 10*3/uL (0.90-5.00); Lymphocytes % (A) 10.9 %; MCH 30.6 pg (27.0-32.0); MCV 98.7 FL (80.0-97.0); Mean Platelet Volume 9.6 FL (9.5-12.2); Monocytes # (A) 1.02 X 10*3/uL (0.20-1.00); Monocytes % (A) 14.1 %; NRBC Per 100 WBC 0 X 10*3/uL (0.00-0.01); Neutrophils # (A) 5.22 X 10*3/uL (1.80-7.70); Neutrophils % (A) 71.9 %; Platelet Count 217 X 10*3/uL (140-440); RBC 3.07 X 10*6/uL (4.40-5.60); RDW 13.5 % (11.5-14.5); WBC 7.25 X 10*3/uL (4.50-10.00)
--- NOTE | 2023-01-06 08:53 | P.PN ---
Subjective Progress Note Date: 01/06/23 Principal diagnosis: Left middle finger ray resection This is an 82 year-old male post left middle finger ray resection. This is post-op day 1. The patient was evaluated at the bedside today. The patient denies nausea, vomiting, abdominal pain, shortness of breath, and chest pain this morning. He states his pain is controlled at this time. Objective - Vital Signs Vital signs: Vital Signs Temp 97.6 F 01/06/23 07:52 Pulse 103 H 01/06/23 07:52 Resp 17 01/06/23 07:52 BP 147/83 01/06/23 07:52 Pulse Ox 97 01/06/23 07:52 FiO2 Intake & Output 01/05/23 01/06/23 01/06/23 18:59 06:59 18:59 Intake Total 0 1220 Output Total 950 1010 Balance -950 210 Intake: IV 1100 Oral 0 120 Output: Urine 950 1000 Estimated Blood Loss 10 Other: Voiding Method External Catheter External Catheter External Catheter - Exam The patient does not appear in acute distress. Alert and orientated x3. Dressing is dry and intact. Remaining finger motion without difficulty. Sensation and circulatory status is intact. - Labs CBC & Chem 7: 01/06/23 04:44 01/06/23 04:44 Labs: Abnormal Lab Results - Last 24 Hours (Table) 01/05/23 01/05/23 01/05/23 Range/Units 05:41 05:41 12:13 RBC 3.07 L (4.40-5.60) X 10*6/uL Hgb 9.6 L (13.0-17.0) g/dL Hct 30.0 L (39.6-50.0) % MCV 97.7 H (80.0-97.0) FL MCHC (32.0-37.0) g/dL Lymphocytes # (0.90-5.00) X 10*3/uL Monocytes # (0.20-1.00) X 10*3/uL POC Glucose (mg/dL) 155 H (70-110) mg/dL Hemoglobin A1c 7.1 H (<=6.0) % 01/05/23 01/06/23 01/06/23 Range/Units 17: 00:25 04:44 RBC 3.07 L (4.40-5.60) X 10*6/uL Hgb 9.4 L (13.0-17.0) g/dL Hct 30.3 L (39.6-50.0) % MCV 98.7 H (80.0-97.0) FL MCHC 31.0 L (32.0-37.0) g/dL Lymphocytes # 0.79 L (0.90-5.00) X 10*3/uL Monocytes # 1.02 H (0.20-1.00) X 10*3/uL POC Glucose (mg/dL) 158 H 151 H (70-110) mg/dL Hemoglobin A1c (<=6.0) % 01/06/23 Range/Units 07:28 RBC (4.40-5.60) X 10*6/uL Hgb (13.0-17.0) g/dL Hct (39.6-50.0) % MCV (80.0-97.0) FL MCHC (32.0-37.0) g/dL Lymphocytes # (0.90-5.00) X 10*3/uL Monocytes # (0.20-1.00) X 10*3/uL POC Glucose (mg/dL) 168 H (70-110) mg/dL Hemoglobin A1c (<=6.0) % Microbiology - Last 24 Hours (Table) 01/05/23 22:05 Gram Stain - Preliminary Finger - Left Third 01/05/23 23:40 Gram Stain - Preliminary Finger - Left Third 01/04/23 10:48 Blood Culture - Preliminary Blood 01/04/23 10:20 Blood Culture - Preliminary Blood 01/04/23 10:58 Gram Stain - Preliminary Finger - Left Third Wound Culture - Preliminary Presumptive Staph aureus Strep agalactiae - (group b) Assessment and Plan (1) Flexor tenosynovitis of finger Current Visit: Yes Status: Acute Code(s): M65.9 - SYNOVITIS AND TENOSYNOVITIS, UNSPECIFIED SNOMED Code(s): 838415139 (2) Finger infection Current Visit: Yes Status: Acute Code(s): L08.9 - LOCAL INFECTION OF THE SKIN AND SUBCUTANEOUS TISSUE, UNSP SNOMED Code(s): 391104767 (3) Diabetes Current Visit: Yes Status: Acute Code(s): E11.9 - TYPE 2 DIABETES MELLITUS WITHOUT COMPLICATIONS SNOMED Code(s): 39496381 (4) Hypertension Current Visit: Yes Status: Acute Code(s): I10 - ESSENTIAL (PRIMARY) HYPERTENSION SNOMED Code(s): 11489772 (5) Status post amputation of finger of left hand Current Visit: Yes Status: Acute Code(s): Z89.022 - ACQUIRED ABSENCE OF LEFT FINGER(S) SNOMED Code(s): 09069413234177966 Plan: The clinical and operative findings were discussed with the patient. The case was discussed at length with Dr. Recinos. The dressing will remain on until tomorrow. Continue IV antibiotics per infectious disease. Operative cultures are pending. We will continue to follow the patient closely.
[2023-01-06 08:54] LABS: Blood Urea Nitrogen 29.4 mg/dL (9.0-27.0); Calcium 8.8 mg/dL (8.7-10.3); Carbon Dioxide 25.7 mmol/L (21.6-31.8); Chloride 112 mmol/L (96-109); Glucose 171 mg/dL (70-110); Potassium 4.3 mmol/L (3.5-5.5); Sodium 146 mmol/L (135-145)
[2023-01-06] MEDS ORDERED: NYSTATIN 100,000 UNIT/GM POWD 15 GM TOPICAL SCH (09:00)
[2023-01-06] MEDS: diphenhydrAMINE 25 MG CAP PO PRN (09:36)
[2023-01-06 11:50] LABS: Glucose,Whole Blood 205 mg/dL (70-110)
--- NOTE | 2023-01-06 12:35 | P.PN ---
Subjective Progress Note Date: 01/06/23 Principal diagnosis: Reason for follow-up is left third finger abscess and cellulitis Patient is a 82-year-old male with a past medical history significant for diabetes mellitus hypertension hyperlipidemia presented to the hospital for evaluation of left third finger swelling and pain , patient been diagnosed with the left third finger abscess , the patient is status post left third finger amputation completed on 01/05/2023 on today's evaluation that is 01/06/2023, the patient remains to be afebrile, the patient is breathing comfortably on room air and the patient denies any shortness of breath, the patient denies chest pain or any cough , patient denies abdominal pain, no nausea/vomiting and no diarrhea the patient pain to the left third finger amputation site is controlled with pain medication Patient did have a white count of 7.25, creatinine 1.2, cultures with group B strep and MSSA, OR Cultures Pending Objective - Vital Signs Vital signs: Vital Signs Temp 97.6 F 01/06/23 07:52 Pulse 103 H 01/06/23 07:52 Resp 17 01/06/23 07:52 BP 147/83 01/06/23 07:52 Pulse Ox 97 01/06/23 07:52 FiO2 Intake & Output 01/05/23 01/06/23 01/06/23 18:59 06:59 18:59 Intake Total 0 1220 560 Output Total 950 1010 Balance -950 210 560 Intake: IV 1100 Oral 0 120 560 Output: Urine 950 1000 Estimated Blood Loss 10 Other: Voiding Method External Catheter External Catheter External Catheter - Exam GENERAL DESCRIPTION: An elderly male lying in bed in no distress RESPIRATORY SYSTEM: Unlabored breathing , clear to auscultation anteriorly HEART: S1 S2 regular rate and rhythm , ABDOMEN: Soft , no tenderness EXTREMITIES: Left third finger amputation site is currently dressed - Labs CBC & Chem 7: 01/06/23 04:44 01/06/23 04:44 Labs: Abnormal Lab Results - Last 24 Hours (Table) 01/05/23 01/05/23 01/06/23 Range/Units 12:13 17: 00:25 RBC (4.40-5.60) X 10*6/uL Hgb (13.0-17.0) g/dL Hct (39.6-50.0) % MCV (80.0-97.0) FL MCHC (32.0-37.0) g/dL Lymphocytes # (0.90-5.00) X 10*3/uL Monocytes # (0.20-1.00) X 10*3/uL Sodium (135-145) mmol/L Chloride (96-109) mmol/L BUN (9.0-27.0) mg/dL BUN/Creatinine Ratio (12.00-20.00) Ratio Glucose (70-110) mg/dL POC Glucose (mg/dL) 155 H 158 H 151 H (70-110) mg/dL 01/06/23 01/06/23 01/06/23 Range/Units 04:44 04:44 07:28 RBC 3.07 L (4.40-5.60) X 10*6/uL Hgb 9.4 L (13.0-17.0) g/dL Hct 30.3 L (39.6-50.0) % MCV 98.7 H (80.0-97.0) FL MCHC 31.0 L (32.0-37.0) g/dL Lymphocytes # 0.79 L (0.90-5.00) X 10*3/uL Monocytes # 1.02 H (0.20-1.00) X 10*3/uL Sodium 146 H (135-145) mmol/L Chloride 112 H (96-109) mmol/L BUN 29.4 H (9.0-27.0) mg/dL BUN/Creatinine Ratio 24.50 H (12.00-20.00) Ratio Glucose 171 H (70-110) mg/dL POC Glucose (mg/dL) 168 H (70-110) mg/dL Microbiology - Last 24 Hours (Table) 01/04/23 10:58 Gram Stain - Final Finger - Left Third Wound Culture - Final Staphylococcus aureus Strep agalactiae - (group b) 01/05/23 22:05 Gram Stain - Preliminary Finger - Left Third 01/05/23 23:40 Gram Stain - Preliminary Finger - Left Third 01/04/23 10:48 Blood Culture - Preliminary Blood 01/04/23 10:20 Blood Culture - Preliminary Blood Assessment and Plan (1) Finger infection Current Visit: Yes Status: Acute Code(s): L08.9 - LOCAL INFECTION OF THE SKIN AND SUBCUTANEOUS TISSUE, UNSP SNOMED Code(s): 997194724 Plan: 1patient presented to hospital left third finger abscess and cellulitis started with a trauma with evidence of abscess clinically likely from gram-positive skin bro failing outpatient oral amoxicillin therapy, local cultures currently growing MSSA and group B strep 2Patient is status post left third finger amputation and a culture was a currently pending 3We will discontinue vancomycin. Start the patient on cefazolin 2 g every 8 hours and monitor clinical course closely Dictation was produced using [employer] dictation software. please excuse any grammatical, word or spelling errors. Time with Patient: Less than 30
--- NOTE | 2023-01-06 16:16 | P.PN ---
Subjective Progress Note Date: 01/06/23 Hospital Course: 82-year-old male with history of diabetes, hypertension, dyslipidemia presenting with left third digit swelling. In the ED, temperature was 98.4, pulse 83, respiratory rate 20, blood pressure 98/56, saturating at 97% on room air. WBC 9.6, hemoglobin 10.1, ESR 99, chloride 109, bicarb 21, creatinine 1.56, glucose 186, lactate 2.2, CRP 20.8. An x-ray showed third digit distal interphalangeal joint with some irregular appearance around the joint consistent with soft tissue swelling, concerning for infection. Patient started on IV vancomycin and was given a dose of Unasyn as well. Orthopedic surgery and ID consulted. Status post I&D. Antibiotics switched to cefazolin. Patient pending discharge to rehab. Subjective: Patient seen and examined at bedside. No acute events overnight. Pertinent positives and negatives as discussed above, a complete review of systems was performed and all other systems are negative. Vitals Signs Reviewed. General: nontoxic, no distress, appears at stated age, morbidly obese Derm: warm, dry Head: atraumatic, normocephalic, symmetric Eyes: EOMI, no lid lag, anicteric sclera, pupils equal round reactive to light ENT: Nose and ears atraumatic Neck: No thyromegaly, supple Mouth: no lip lesion, mucus membranes moist Cardiovascular: S1S2 reg, no murmur, trace peripheral edema Lungs: clear to auscultation bilateral, no rhonchi, no rales, no wheeze, no accessory muscle use Abdominal: soft, nontender to palpation, no guarding, no appreciable organomegaly Ext: Left third digit erythema and edema with slight purulent drainage on the dorsum aspect of the DIP Neuro: CN II-XII grossly intact Psych: Alert, oriented, appropriate affect Data Reviewed Today: Pertinent Labs: Hemoglobin 9.4, sodium 146, creatinine 1.2, blood glucose range between 151-168 Imaging: No new imaging Assessment and Plan: Active: Left third digit abscess and cellulitis status post I&D Tenosynovitis -ID reviewed, started on cefazolin IV 2 g every 8 hours -Blood cultures pending -Orthopedic surgery reviewed, continue supportive care Type 2 diabetes -Hold home medications, continue on sliding scale insulin, monitor for hypoglycemia Normocytic anemia -No active bleeding, outpatient workup Resolved: Lactic acidosis Metabolic acidosis Acute kidney injury Chronic: Hypertension Dyslipidemia DVT ppx : subcu heparin Code status: Full code Anticipated discharge place: Pending clinical course Anticipated discharge time: Pending clinical course Objective - Vital Signs Vital signs: Vital Signs Temp 98.7 F 01/06/23 14:00 Pulse 73 01/06/23 14:00 Resp 19 01/06/23 14:00 BP 159/77 01/06/23 14:00 Pulse Ox 94 L 01/06/23 14:00 FiO2 Intake & Output 01/05/23 01/06/23 01/06/23 18:59 06:59 18:59 Intake Total 0 1220 560 Output Total 950 1010 Balance -950 210 560 Intake: IV 1100 Oral 0 120 560 Output: Urine 950 1000 Estimated Blood Loss 10 Other: Voiding Method External Catheter External Catheter External Catheter - Labs CBC & Chem 7: 01/06/23 04:44 01/06/23 04:44 Labs: Abnormal Lab Results - Last 24 Hours (Table) 01/05/23 01/06/23 01/06/23 Range/Units 17:21 00:25 04:44 RBC 3.07 L (4.40-5.60) X 10*6/uL Hgb 9.4 L (13.0-17.0) g/dL Hct 30.3 L (39.6-50.0) % MCV 98.7 H (80.0-97.0) FL MCHC 31.0 L (32.0-37.0) g/dL Lymphocytes # 0.79 L (0.90-5.00) X 10*3/uL Monocytes # 1.02 H (0.20-1.00) X 10*3/uL Sodium (135-145) mmol/L Chloride (96-109) mmol/L BUN (9.0-27.0) mg/dL BUN/Creatinine Ratio (12.00-20.00) Ratio Glucose (70-110) mg/dL POC Glucose (mg/dL) 158 H 151 H (70-110) mg/dL 01/06/23 01/06/23 01/06/23 Range/Units 04:44 07:28 11:47 RBC (4.40-5.60) X 10*6/uL Hgb (13.0-17.0) g/dL Hct (39.6-50.0) % MCV (80.0-97.0) FL MCHC (32.0-37.0) g/dL Lymphocytes # (0.90-5.00) X 10*3/uL Monocytes # (0.20-1.00) X 10*3/uL Sodium 146 H (135-145) mmol/L Chloride 112 H (96-109) mmol/L BUN 29.4 H (9.0-27.0) mg/dL BUN/Creatinine Ratio 24.50 H (12.00-20.00) Ratio Glucose 171 H (70-110) mg/dL POC Glucose (mg/dL) 168 H 205 H (70-110) mg/dL Microbiology - Last 24 Hours (Table) 01/04/23 10:58 Gram Stain - Final Finger - Left Third Wound Culture - Final Staphylococcus aureus Strep agalactiae - (group b) 01/05/23 22:05 Gram Stain - Preliminary Finger - Left Third 01/05/23 23:40 Gram Stain - Preliminary Finger - Left Third 01/04/23 10:48 Blood Culture - Preliminary Blood 01/04/23 10:20 Blood Culture - Preliminary Blood
[2023-01-06 17:10] LABS: Glucose,Whole Blood 188 mg/dL (70-110)
[2023-01-06 21:24] LABS: Glucose,Whole Blood 201 mg/dL (70-110)
[2023-01-07] MEDS: HYDROmorphone 0.5 MG/0.5 ML SYRINGE IVP PRN (03:57)
[2023-01-07 08:18] LABS: Glucose,Whole Blood 154 mg/dL (70-110)
[2023-01-07] MEDS: ATORVASTATIN 40 MG TAB PO SCH (09:04)
[2023-01-07] MEDS: FUROSEMIDE 40 MG TAB PO SCH (09:04)
[2023-01-07] MEDS: HEPARIN SODIUM,PORCINE 5,000 UNIT/ML 1 ML VIAL SQ SCH ×2 (09:04→15:16)
[2023-01-07] MEDS: METOPROLOL TARTRATE 25 MG TAB PO SCH (09:04)
[2023-01-07] MEDS: TAMSULOSIN 0.4 MG CAP.ER.24H PO SCH (09:04)
[2023-01-07] MEDS: lisinopriL 20 MG TAB PO SCH (09:05)
[2023-01-07] MEDS: DULoxetine HCL 30 MG CAPSULE.DR PO SCH (09:05)
[2023-01-07] MEDS: INSULIN ASPART (NovoLOG) 100 UNIT/ML VIAL SQ SCH ×4 (09:06→21:49)
--- NOTE | 2023-01-07 10:58 | P.PN ---
Subjective Progress Note Date: 01/07/23 Principal diagnosis: S/P Left middle finger ray amputation Patient is an 82 year-old male seen at bedside this am. He is status post left middle finger ray resection. This is post-op day 2. The patient denies fever, chills, nausea, vomiting, abdominal pain, shortness of breath, and chest pain this morning. He states his pain is controlled at this time. Objective - Vital Signs Vital signs: Vital Signs Temp 98.5 F 01/07/23 08:00 Pulse 99 01/07/23 08:00 Resp 18 01/07/23 08:00 BP 131/77 01/07/23 08:00 Pulse Ox 92 L 01/07/23 08:00 FiO2 Intake & Output 01/06/23 01/07/23 01/07/23 18:59 06:59 18:59 Intake Total 1040 Output Total 700 1000 Balance 340 -1000 Intake: Oral 1040 Output: Urine 700 1000 Other: Voiding Method External Catheter External Catheter External Catheter - Exam Inspection reveals a benign surgical wound. Nylon sutures in place. There is no active bleeding or drainage. Neurovascular status is intact throughout the upper extremity with motor and sensation fully intact. 2+ radial pulse and less than 2 second cap refill is present in remaining digits. - Constitutional General appearance: Present: no acute distress - Labs CBC & Chem 7: 01/06/23 04:44 01/06/23 04:44 Labs: Abnormal Lab Results - Last 24 Hours (Table) 01/06/23 01/06/23 01/06/23 Range/Units 11:47 17:08 21: POC Glucose (mg/dL) 205 H 188 H 201 H (70-110) mg/dL 01/07/23 Range/Units 08:17 POC Glucose (mg/dL) 154 H (70-110) mg/dL Microbiology - Last 24 Hours (Table) 01/05/23 23:40 Gram Stain - Preliminary Finger - Left Third Tissue Culture - Preliminary Presumptive Staph aureus Strep agalactiae - (group b) 01/05/23 22:05 Gram Stain - Preliminary Finger - Left Third Wound Culture - Preliminary Strep agalactiae - (group b) 01/04/23 10:48 Blood Culture - Preliminary Blood 01/04/23 10:20 Blood Culture - Preliminary Blood 01/04/23 10:58 Gram Stain - Final Finger - Left Third Wound Culture - Final Staphylococcus aureus Strep agalactiae - (group b) Assessment and Plan (1) Status post amputation of finger of left hand Narrative/Plan: He will continue with routine postop orthopedic protocol including pain management, wound care, and medical management. Will have bandage changed today. Continue elevation. Continue antibiotics per ID. He may D/C from orthopedic standpoint when okay with ID and IM. Current Visit: Yes Status: Acute Priority: Medium Code(s): Z89.022 - ACQUIRED ABSENCE OF LEFT FINGER(S) SNOMED Code(s): 44302445945945361 Time with Patient: Less than 30
[2023-01-07 12:08] LABS: Glucose,Whole Blood 220 mg/dL (70-110)
--- NOTE | 2023-01-07 13:30 | P.PN ---
Subjective Progress Note Date: 01/07/23 Hospital Course: 82-year-old male with history of diabetes, hypertension, dyslipidemia presenting with left third digit swelling. In the ED, temperature was 98.4, pulse 83, respiratory rate 20, blood pressure 98/56, saturating at 97% on room air. WBC 9.6, hemoglobin 10.1, ESR 99, chloride 109, bicarb 21, creatinine 1.56, glucose 186, lactate 2.2, CRP 20.8. An x-ray showed third digit distal interphalangeal joint with some irregular appearance around the joint consistent with soft tissue swelling, concerning for infection. Patient started on IV vancomycin and was given a dose of Unasyn as well. Orthopedic surgery and ID consulted. Status post ray resection. Antibiotics switched to cefazolin. Patient pending discharge to rehab. Subjective: Patient seen and examined at bedside. No acute events overnight. Pertinent positives and negatives as discussed above, a complete review of systems was performed and all other systems are negative. Vitals Signs Reviewed. General: nontoxic, no distress, appears at stated age, morbidly obese Derm: warm, dry, dressing clean, dry, intact Head: atraumatic, normocephalic, symmetric Eyes: EOMI, no lid lag, anicteric sclera, pupils equal round reactive to light ENT: Nose and ears atraumatic Neck: No thyromegaly, supple Mouth: no lip lesion, mucus membranes moist Cardiovascular: S1S2 reg, no murmur, trace peripheral edema Lungs: clear to auscultation bilateral, no rhonchi, no rales, no wheeze, no accessory muscle use Abdominal: soft, nontender to palpation, no guarding, no appreciable organomegaly Neuro: CN II-XII grossly intact Psych: Alert, oriented, appropriate affect Data Reviewed Today: Pertinent Labs: Blood sugars range between 154-220 Imaging: No new imaging Assessment and Plan: Active: Left third digit abscess and cellulitis status post ray resection Tenosynovitis, resolved -ID following, on cefazolin IV 2 g every 8 hours -Orthopedic surgery note reviewed, continue supportive care, may be discharged from the standpoint Type 2 diabetes -Hold home medications, continue on sliding scale insulin, monitor for hypoglycemia Normocytic anemia -No active bleeding, outpatient workup Resolved: Lactic acidosis Metabolic acidosis Acute kidney injury Chronic: Hypertension Dyslipidemia DVT ppx : subcu heparin Code status: Full code Anticipated discharge place: Rehab Anticipated discharge time: Likely tomorrow Objective - Vital Signs Vital signs: Vital Signs Temp 97.8 F 01/07/23 12:30 Pulse 108 H 01/07/23 12:30 Resp 18 01/07/23 12:30 BP 117/69 01/07/23 12:30 Pulse Ox 92 L 01/07/23 12:30 FiO2 Intake & Output 01/06/23 01/07/23 01/07/23 18:59 06:59 18:59 Intake Total 1040 Output Total 700 1000 Balance 340 -1000 Intake: Oral 1040 Output: Urine 700 1000 Other: Voiding Method External Catheter External Catheter External Catheter - Labs CBC & Chem 7: 01/06/23 04:44 01/06/23 04:44 Labs: Abnormal Lab Results - Last 24 Hours (Table) 01/06/23 01/06/23 01/07/23 Range/Units 17:08 21:23 08:17 POC Glucose (mg/dL) 188 H 201 H 154 H (70-110) mg/dL 01/07/23 Range/Units 11:58 POC Glucose (mg/dL) 220 H (70-110) mg/dL Microbiology - Last 24 Hours (Table) 01/05/23 23:40 Gram Stain - Preliminary Finger - Left Third Tissue Culture - Preliminary Presumptive Staph aureus Strep agalactiae - (group b) 01/05/23 22:05 Gram Stain - Preliminary Finger - Left Third Wound Culture - Preliminary Strep agalactiae - (group b) 01/04/23 10:48 Blood Culture - Preliminary Blood 01/04/23 10:20 Blood Culture - Preliminary Blood 01/04/23 10:58 Gram Stain - Final Finger - Left Third Wound Culture - Final Staphylococcus aureus Strep agalactiae - (group b)
[2023-01-07] MEDS ORDERED: polyethylene glycoL 3350 17 GM POWD.PACK PO PRN (14:38)
[2023-01-07] MEDS: diphenhydrAMINE 25 MG CAP PO PRN (15:17)
[2023-01-07 17:36] LABS: Glucose,Whole Blood 213 mg/dL (70-110)
[2023-01-07] MEDS: SENNOSIDES 8.6 MG TAB PO SCH (19:40)
[2023-01-07 20:57] LABS: Glucose,Whole Blood 199 mg/dL (70-110)
[2023-01-08] MEDS: HEPARIN SODIUM,PORCINE 5,000 UNIT/ML 1 ML VIAL SQ SCH ×4 (00:58→23:08)
[2023-01-08 07:59] LABS: Glucose,Whole Blood 190 mg/dL (70-110)
[2023-01-08] MEDS: METOPROLOL TARTRATE 25 MG TAB PO SCH (09:19)
[2023-01-08] MEDS: lisinopriL 20 MG TAB PO SCH (09:19)
[2023-01-08] MEDS: INSULIN ASPART (NovoLOG) 100 UNIT/ML VIAL SQ SCH ×4 (09:19→20:22)
[2023-01-08] MEDS: DULoxetine HCL 30 MG CAPSULE.DR PO SCH (09:19)
[2023-01-08] MEDS: SENNOSIDES 8.6 MG TAB PO SCH ×2 (09:20→20:22)
[2023-01-08] MEDS: FUROSEMIDE 40 MG TAB PO SCH (09:20)
[2023-01-08] MEDS: ATORVASTATIN 40 MG TAB PO SCH (09:20)
[2023-01-08] MEDS: TAMSULOSIN 0.4 MG CAP.ER.24H PO SCH (09:20)
[2023-01-08 12:15] LABS: Glucose,Whole Blood 231 mg/dL (70-110)
--- NOTE | 2023-01-08 13:08 | P.PN ---
Subjective Progress Note Date: 01/08/23 Hospital Course: 82-year-old male with history of diabetes, hypertension, dyslipidemia presenting with left third digit swelling. In the ED, temperature was 98.4, pulse 83, respiratory rate 20, blood pressure 98/56, saturating at 97% on room air. WBC 9.6, hemoglobin 10.1, ESR 99, chloride 109, bicarb 21, creatinine 1.56, glucose 186, lactate 2.2, CRP 20.8. An x-ray showed third digit distal interphalangeal joint with some irregular appearance around the joint consistent with soft tissue swelling, concerning for infection. Patient started on IV vancomycin and was given a dose of Unasyn as well. Orthopedic surgery and ID consulted. Status post ray resection. Antibiotics switched to IV cefazolin. Patient will require midline and IV antibiotics. Patient pending discharge to rehab. Subjective: Patient seen and examined at bedside. No acute events overnight. Denies any significant pain Pertinent positives and negatives as discussed above, a complete review of syst ems was performed and all other systems are negative. Vitals Signs Reviewed. General: nontoxic, no distress, appears at stated age, morbidly obese Derm: warm, dry, dressing clean, dry, intact, erythematous maculopapular rash in dependent areas as well as intereginous areas Head: atraumatic, normocephalic, symmetric Eyes: EOMI, no lid lag, anicteric sclera, pupils equal round reactive to light ENT: Nose and ears atraumatic Neck: No thyromegaly, supple Mouth: no lip lesion, mucus membranes moist Cardiovascular: S1S2 reg, no murmur, trace peripheral edema Lungs: clear to auscultation bilateral, no rhonchi, no rales, no wheeze, no accessory muscle use Abdominal: soft, nontender to palpation, no guarding, no appreciable organomegaly Neuro: CN II-XII grossly intact Psych: Alert, oriented, appropriate affect Data Reviewed Today: Pertinent Labs: Blood sugars range between 190-231 Imaging: No new imaging Assessment and Plan: Active: Dermatitis, likely contact -Topical hydrocortisone 1% ordered Left third digit abscess and cellulitis status post ray resection Tenosynovitis, resolved -Discussed management with ID, on cefazolin IV 2 g every 8 hours, will need a midline and IV antibiotics at discharge -Orthopedic following, continue supportive care, may be discharged from the standpoint Type 2 diabetes -Hold home medications, continue on sliding scale insulin, monitor for hypogl ycemia Normocytic anemia -No active bleeding, outpatient workup Resolved: Lactic acidosis Metabolic acidosis Acute kidney injury Chronic: Hypertension Dyslipidemia DVT ppx : subcu heparin Code status: Full code Anticipated discharge place: Rehab Anticipated discharge time: Likely tomorrow versus Wednesday Objective - Vital Signs Vital signs: Vital Signs Temp 99.2 F 01/08/23 12:40 Pulse 101 H 01/08/23 12:40 Resp 17 01/08/23 12:40 BP 144/74 01/08/23 12:40 Pulse Ox 93 L 01/08/23 12:40 FiO2 Intake & Output 01/07/23 01/08/23 01/08/23 18:59 06:59 18:59 Output Total 400 700 Balance -400 -700 Output: Urine 400 700 Other: Voiding Method External Catheter External Catheter - Labs CBC & Chem 7: 01/06/23 04:44 01/06/23 04:44 Labs: Abnormal Lab Results - Last 24 Hours (Table) 01/07/23 01/07/23 01/08/23 Range/Units 17:19 20:55 07:49 POC Glucose (mg/dL) 213 H 199 H 190 H (70-110) mg/dL 01/08/23 Range/Units 11:54 POC Glucose (mg/dL) 231 H (70-110) mg/dL Microbiology - Last 24 Hours (Table) 01/05/23 22:05 Gram Stain - Preliminary Finger - Left Third Wound Culture - Preliminary Strep agalactiae - (group b) Presumptive Staph aureus 01/05/23 23:40 Gram Stain - Preliminary Finger - Left Third Tissue Culture - Preliminary Staphylococcus aureus Strep agalactiae - (group b) 01/05/23 22:05 Anaerobic Culture - Preliminary Finger - Left Third 01/04/23 10:48 Blood Culture - Preliminary Blood 01/04/23 10:20 Blood Culture - Preliminary Blood
[2023-01-08 17:17] LABS: Glucose,Whole Blood 198 mg/dL (70-110)
[2023-01-08 20:19] LABS: Glucose,Whole Blood 185 mg/dL (70-110)
[2023-01-08] MEDS: diphenhydrAMINE 25 MG CAP PO PRN (20:50)
[2023-01-08] MEDS: HYDROCORTISONE 1% CREAM 30 GM TUBE TOPICAL PRN (21:22)
[2023-01-09 07:31] LABS: Glucose,Whole Blood 225 mg/dL (70-110)
[2023-01-09] MEDS: INSULIN ASPART (NovoLOG) 100 UNIT/ML VIAL SQ SCH ×4 (08:01→20:09)
[2023-01-09] MEDS: DULoxetine HCL 30 MG CAPSULE.DR PO SCH (08:01)
[2023-01-09] MEDS: FUROSEMIDE 40 MG TAB PO SCH (08:01)
[2023-01-09] MEDS: ATORVASTATIN 40 MG TAB PO SCH (08:01)
[2023-01-09] MEDS: HEPARIN SODIUM,PORCINE 5,000 UNIT/ML 1 ML VIAL SQ SCH ×3 (08:01→23:52)
[2023-01-09] MEDS: SENNOSIDES 8.6 MG TAB PO SCH ×2 (08:02→20:09)
[2023-01-09] MEDS: TAMSULOSIN 0.4 MG CAP.ER.24H PO SCH (08:02)
[2023-01-09] MEDS: lisinopriL 20 MG TAB PO SCH (08:02)
[2023-01-09] MEDS: METOPROLOL TARTRATE 25 MG TAB PO SCH (08:02)
--- NOTE | 2023-01-09 08:03 | P.PN ---
Subjective Progress Note Date: 01/08/23 Principal diagnosis: Reason for follow-up is left third finger abscess and cellulitis Patient is a 82-year-old male with a past medical history significant for diabetes mellitus hypertension hyperlipidemia presented to the hospital for evaluation of left third finger swelling and pain , patient been diagnosed with the left third finger abscess , the patient is status post left third finger amputation completed on 01/05/2023 on today's evaluation that is 01/08/2023, the patient denies any fever or any chills, the patient is breathing comfortably on room air without the need for supplemental oxygen, patient denies chest pain shortness of breath and no significant cough or sputum production, patient denies Abdominal pain, no nausea/vomiting and denies having any diarrhea, the patient pain to the left third finger amputation site has decreased in intensity Patient did have a white count of 7.25, creatinine 1.2 as of 01/06/2023 no labs today, cultures with group B strep and MSSA, OR Cultures MSSA Objective - Vital Signs Vital signs: Vital Signs Temp 99.2 F 01/08/23 12:40 Pulse 101 H 01/08/23 12:40 Resp 17 01/08/23 12:40 BP 144/74 01/08/23 12:40 Pulse Ox 93 L 01/08/23 12:40 FiO2 Intake & Output 01/07/23 01/08/23 01/08/23 18:59 06:59 18:59 Output Total 400 700 Balance -400 -700 Output: Urine 400 700 Other: Voiding Method External Catheter External Catheter - Exam GENERAL DESCRIPTION: An elderly male lying in bed in no distress RESPIRATORY SYSTEM: Unlabored breathing , clear to auscultation anteriorly HEART: S1 S2 regular rate and rhythm , ABDOMEN: Soft , no tenderness EXTREMITIES: Left third finger amputation site wound is closed minimal erythema - Labs CBC & Chem 7: 01/06/23 04:44 01/06/23 04:44 Labs: Abnormal Lab Results - Last 24 Hours (Table) 01/07/23 01/07/23 01/08/23 Range/Units 17:19 20:55 07:49 POC Glucose (mg/dL) 213 H 199 H 190 H (70-110) mg/dL 01/08/23 Range/Units 11:54 POC Glucose (mg/dL) 231 H (70-110) mg/dL Microbiology - Last 24 Hours (Table) 01/05/23 22:05 Gram Stain - Preliminary Finger - Left Third Wound Culture - Preliminary Strep agalactiae - (group b) Presumptive Staph aureus 01/05/23 23:40 Gram Stain - Preliminary Finger - Left Third Tissue Culture - Preliminary Staphylococcus aureus Strep agalactiae - (group b) 01/05/23 22:05 Anaerobic Culture - Preliminary Finger - Left Third 01/04/23 10:48 Blood Culture - Preliminary Blood 01/04/23 10:20 Blood Culture - Preliminary Blood Assessment and Plan (1) Finger infection Current Visit: Yes Status: Acute Code(s): L08.9 - LOCAL INFECTION OF THE SKIN AND SUBCUTANEOUS TISSUE, UNSP SNOMED Code(s): 421643273 Plan: 1patient presented to hospital left third finger abscess and cellulitis started with a trauma with evidence of abscess clinically likely from gram-positive skin bro failing outpatient oral amoxicillin therapy, local cultures currently gr owing MSSA and group B strep 2Patient is status post left third finger amputation and a culture was a currently growing strep and MSSA 3patient to continue with cefazolin 2 g every 8 hours , will benefit from a short course of IV cefazolin on discharge midline has been requested discussed with the admitting team Dictation was produced using [employer] dictation software. please excuse any grammatical, word or spelling errors. Time with Patient: Less than 30
--- NOTE | 2023-01-09 11:40 | P.PN ---
Subjective Progress Note Date: 01/09/23 Principal diagnosis: S/P Left middle finger ray amputation Patient is an 82 year-old male seen at bedside this am. He is status post left middle finger ray resection. This is post-op day 4. The patient denies fever, chills, nausea, vomiting, abdominal pain, shortness of breath, and chest pain this morning. He states his pain is controlled at this time. Objective - Vital Signs Vital signs: Vital Signs Temp 97.9 F 01/09/23 07:28 Pulse 102 H 01/09/23 07:28 Resp 16 01/09/23 07:28 BP 127/69 01/09/23 07:28 Pulse Ox 94 L 01/09/23 07:28 FiO2 Intake & Output 01/08/23 01/09/23 01/09/23 18:59 06:59 18:59 Intake Total 1020 872 Output Total 800 1200 Balance 220 -328 Intake: Intake, IV Titration 50 Amount ceFAZolin 2 gm In Sodium 50 Chloride 0.9% 50 ml @ 100 mls/hr IVPB Q8HR [facility] Rx# :[id number] Oral 1020 822 Output: Urine 800 1200 Other: Voiding Method External Catheter External Catheter External Catheter # Bowel Movements 1 - Exam Inspection reveals a benign surgical wound. Nylon sutures in place. There is no active bleeding or drainage. Neurovascular status is intact throughout the upper extremity with motor and sensation fully intact. 2+ radial pulse and less than 2 second cap refill is present in remaining digits. - Constitutional General appearance: Present: no acute distress - Labs CBC & Chem 7: 01/06/23 04:44 01/06/23 04:44 Labs: Abnormal Lab Results - Last 24 Hours (Table) 01/08/23 01/08/23 01/08/23 Range/Units 11:54 17:09 20:18 POC Glucose (mg/dL) 231 H 198 H 185 H (70-110) mg/dL 01/09/23 Range/Units 07:26 POC Glucose (mg/dL) 225 H (70-110) mg/dL Microbiology - Last 24 Hours (Table) 01/05/23 22:05 Gram Stain - Final Finger - Left Third Wound Culture - Final Strep agalactiae - (group b) Staphylococcus aureus 01/05/23 23:40 Gram Stain - Final Finger - Left Third Tissue Culture - Final Staphylococcus aureus Strep agalactiae - (group b) Assessment and Plan (1) Status post amputation of finger of left hand Narrative/Plan: He will continue with routine postop orthopedic protocol including pain management, wound care, and medical management. Light dressing changes. Continue elevation. Continue antibiotics per ID. He may D/C from orthopedic standpoint when okay with ID and IM. We will sign off for now. He is to f/u as outpatient Current Visit: Yes Status: Acute Priority: Medium Code(s): Z89.022 - ACQUIRED ABSENCE OF LEFT FINGER(S) SNOMED Code(s): 55404521978820473 Time with Patient: Less than 30
[2023-01-09 12:11] LABS: Glucose,Whole Blood 323 mg/dL (70-110)
--- NOTE | 2023-01-09 14:40 | P.PN ---
Subjective Progress Note Date: 01/09/23 Hospital Course: 82-year-old male with history of diabetes, hypertension, dyslipidemia presenting with left third digit swelling. In the ED, temperature was 98.4, pulse 83, respiratory rate 20, blood pressure 98/56, saturating at 97% on room air. WBC 9.6, hemoglobin 10.1, ESR 99, chloride 109, bicarb 21, creatinine 1.56, glucose 186, lactate 2.2, CRP 20.8. An x-ray showed third digit distal interphalangeal joint with some irregular appearance around the joint consistent with soft tissue swelling, concerning for infection. Patient started on IV vancomycin and was given a dose of Unasyn as well. Orthopedic surgery and ID consulted. Status post ray resection. Antibiotics switched to IV cefazolin. Patient will require midline and IV antibiotics. Patient pending discharge to rehab. Subjective: Patient seen and examined at bedside. No acute events overnight. Denies any significant pain. Back rash is improving. Pertinent positives and negatives as discussed above, a complete review of systems was performed and all other systems are negative. Vitals Signs Reviewed. General: nontoxic, no distress, appears at stated age, morbidly obese Derm: warm, dry, dressing clean, dry, intact, erythematous maculopapular rash in dependent areas as well as intereginous areas, improving Head: atraumatic, normocephalic, symmetric Eyes: EOMI, no lid lag, anicteric sclera, pupils equal round reactive to light ENT: Nose and ears atraumatic Neck: No thyromegaly, supple Mouth: no lip lesion, mucus membranes moist Cardiovascular: S1S2 reg, no murmur, trace peripheral edema Lungs: clear to auscultation bilateral, no rhonchi, no rales, no wheeze, no accessory muscle use Abdominal: soft, nontender to palpation, no guarding, no appreciable organomegaly Neuro: CN II-XII grossly intact Psych: Alert, oriented, appropriate affect Data Reviewed Today: Pertinent Labs: Blood sugars range between 185-323 Imaging: No new imaging Assessment and Plan: Active: Dermatitis, likely contact -Topical hydrocortisone 1% Left third digit abscess and cellulitis status post ray resection Tenosynovitis, resolved -ID following, on cefazolin IV 2 g every 8 hours, will need a midline and IV antibiotics at discharge -Orthopedic following, continue supportive care, may be discharged from the standpoint, signed off Type 2 diabetes -Hold home medications, continue on sliding scale insulin, monitor for hypoglycemia Normocytic anemia -No active bleeding, outpatient workup Resolved: Lactic acidosis Metabolic acidosis Acute kidney injury Chronic: Hypertension Dyslipidemia DVT ppx : subcu heparin Code status: Full code Anticipated discharge place: Rehab Anticipated discharge time: Likely Wednesday Objective - Vital Signs Vital signs: Vital Signs Temp 100.9 F H 01/09/23 12:59 Pulse 105 H 01/09/23 12:59 Resp 20 01/09/23 12:59 BP 123/72 01/09/23 12:59 Pulse Ox 93 L 01/09/23 12:59 FiO2 Intake & Output 01/08/23 01/09/23 01/09/23 18:59 06:59 18:59 Intake Total 1020 872 Output Total 800 1200 650 Balance 220 -328 -650 Intake: Intake, IV Titration 50 Amount ceFAZolin 2 gm In Sodium 50 Chloride 0.9% 50 ml @ 100 mls/hr IVPB Q8HR [facility] Rx# :[id number] Oral 1020 822 Output: Urine 800 1200 650 Other: Voiding Method External Catheter External Catheter External Catheter # Bowel Movements 1 - Labs CBC & Chem 7: 01/06/23 04:44 01/06/23 04:44 Labs: Abnormal Lab Results - Last 24 Hours (Table) 01/08/23 01/08/23 01/09/23 Range/Units 17:09 20:18 07:26 POC Glucose (mg/dL) 198 H 185 H 225 H (70-110) mg/dL 01/09/23 Range/Units 12:08 POC Glucose (mg/dL) 323 H (70-110) mg/dL Microbiology - Last 24 Hours (Table) 01/05/23 22:05 Gram Stain - Final Finger - Left Third Wound Culture - Final Strep agalactiae - (group b) Staphylococcus aureus 01/05/23 23:40 Gram Stain - Final Finger - Left Third Tissue Culture - Final Staphylococcus aureus Strep agalactiae - (group b)
[2023-01-09] MEDS: HYDROCORTISONE 1% CREAM 30 GM TUBE TOPICAL PRN (16:36)
[2023-01-09 17:32] LABS: Glucose,Whole Blood 293 mg/dL (70-110)
[2023-01-09 20:05] LABS: Glucose,Whole Blood 327 mg/dL (70-110)
--- NOTE | 2023-01-09 21:25 | P.PN ---
Subjective Progress Note Date: 01/09/23 Principal diagnosis: Reason for follow-up is left third finger abscess and cellulitis Patient is a 82-year-old male with a past medical history significant for diabetes mellitus hypertension hyperlipidemia presented to the hospital for evaluation of left third finger swelling and pain , patient been diagnosed with the left third finger abscess , the patient is status post left third finger amputation completed on 01/05/2023 on today's evaluation that is 01/09/2023, the patient did have a low-grade fever 100.9 F this afternoon, the patient is breathing comfortably on room air and the patient denies any shortness of breath, the patient denies chest pain or any cough , patient denies any nausea/vomiting abdominal pain or diarrhea, he denies any worsening pain to the left hand area. No new labs has been obtained today. Objective - Vital Signs Vital signs: Vital Signs Temp 97.9 F 01/09/23 07:28 Pulse 102 H 01/09/23 07:28 Resp 16 01/09/23 07:28 BP 127/69 01/09/23 07:28 Pulse Ox 94 L 01/09/23 07:28 FiO2 Intake & Output 01/08/23 01/09/23 01/09/23 18:59 06:59 18:59 Intake Total 1020 872 Output Total 800 1200 Balance 220 -328 Intake: Intake, IV Titration 50 Amount ceFAZolin 2 gm In Sodium 50 Chloride 0.9% 50 ml @ 100 mls/hr IVPB Q8HR [facility] Rx# :[id number] Oral 1020 822 Output: Urine 800 1200 Other: Voiding Method External Catheter External Catheter External Catheter # Bowel Movements 1 - Exam GENERAL DESCRIPTION: An elderly male lying in bed in no distress RESPIRATORY SYSTEM: Unlabored breathing , clear to auscultation anteriorly HEART: S1 S2 regular rate and rhythm , ABDOMEN: Soft , no tenderness EXTREMITIES: Left third finger amputation site wound is closed minimal erythema - Labs CBC & Chem 7: 01/06/23 04:44 01/06/23 04:44 Labs: Abnormal Lab Results - Last 24 Hours (Table) 01/08/23 01/08/23 01/08/23 Range/Units 11:54 17:09 20:18 POC Glucose (mg/dL) 231 H 198 H 185 H (70-110) mg/dL 01/09/23 Range/Units 07:26 POC Glucose (mg/dL) 225 H (70-110) mg/dL Microbiology - Last 24 Hours (Table) 01/05/23 22:05 Gram Stain - Final Finger - Left Third Wound Culture - Final Strep agalactiae - (group b) Staphylococcus aureus 01/05/23 23:40 Gram Stain - Final Finger - Left Third Tissue Culture - Final Staphylococcus aureus Strep agalactiae - (group b) Assessment and Plan (1) Finger infection Current Visit: Yes Status: Acute Code(s): L08.9 - LOCAL INFECTION OF THE SKIN AND SUBCUTANEOUS TISSUE, UNSP SNOMED Code(s): 782224395 Plan: 1patient presented to hospital left third finger abscess and cellulitis started with a trauma with evidence of abscess clinically likely from gram-positive skin bro failing outpatient oral amoxicillin therapy, local cultures currently growing MSSA and group B strep 2Patient is status post left third finger amputation and a culture was a currently growing strep and MSSA 3patient did spike a low-grade fever this afternoon which is slightly concerning we will repeat the blood cultures continue with the cefazolin repeat a CBC CRP with a.m. lab Dictation was produced using [employer] dictation software. please excuse any grammatical, word or spelling errors.
[2023-01-10] MEDS: diphenhydrAMINE 25 MG CAP PO PRN (00:02)
[2023-01-10] MEDS: HYDROCORTISONE 1% CREAM 30 GM TUBE TOPICAL PRN (00:02)
[2023-01-10 06:37] LABS: Basophils % (A) 0 %; Eosinophils # (A) 0.3 k/uL (0-0.7); Eosinophils % (A) 4 %; HGB 9.2 gm/dL (13.0-17.5); Hypochromasia Slight; Lymphocytes # (A) 0.8 k/uL (1.0-4.8); Lymphocytes % (A) 11 %; MCH 31.6 pg (25.0-35.0); MCHC 32.7 g/dL (31.0-37.0); MCV 96.5 fL (80.0-100.0); Mean Platelet Volume 7.9; Monocytes # (A) 0.5 k/uL (0-1.0); Monocytes % (A) 7 %; Neutrophils # (A) 5.6 k/uL (1.3-7.7); Neutrophils % (A) 77 %; Platelet Count 224 k/uL (150-450); RDW 12.9 % (11.5-15.5); WBC 7.3 k/uL (3.8-10.6)
[2023-01-10 06:50] LABS: African American GFR (CKD) 66 (>60 ml/min/1.73 sqM); Anion Gap 6 mmol/L; Blood Urea Nitrogen 28 mg/dL (9-20); Calcium 8.4 mg/dL (8.4-10.2); Carbon Dioxide 26 mmol/L (22-30); Chloride 102 mmol/L (98-107); Glucose 177 mg/dL (74-99); Non-African American GFR(CKD) 57 (>60 ml/min/1.73 sqM); Potassium 3.8 mmol/L (3.5-5.1); Sodium 134 mmol/L (137-145)
[2023-01-10 07:02] LABS: C Reactive Protein 19.5 mg/dL (<1.0)
[2023-01-10 08:18] LABS: Glucose,Whole Blood 225 mg/dL (70-110)
[2023-01-10] MEDS: INSULIN ASPART (NovoLOG) 100 UNIT/ML VIAL SQ SCH ×4 (08:30→21:45)
[2023-01-10] MEDS: METOPROLOL TARTRATE 25 MG TAB PO SCH (08:31)
[2023-01-10] MEDS: SENNOSIDES 8.6 MG TAB PO SCH ×2 (08:31→21:46)
[2023-01-10] MEDS: TAMSULOSIN 0.4 MG CAP.ER.24H PO SCH (08:31)
[2023-01-10] MEDS: ATORVASTATIN 40 MG TAB PO SCH (08:31)
[2023-01-10] MEDS: DULoxetine HCL 30 MG CAPSULE.DR PO SCH (08:31)
[2023-01-10] MEDS: lisinopriL 20 MG TAB PO SCH (08:31)
[2023-01-10] MEDS: FUROSEMIDE 40 MG TAB PO SCH (08:31)
[2023-01-10] MEDS: HEPARIN SODIUM,PORCINE 5,000 UNIT/ML 1 ML VIAL SQ SCH ×2 (08:31→16:40)
[2023-01-10 12:19] LABS: Glucose,Whole Blood 274 mg/dL (70-110)
--- NOTE | 2023-01-10 14:04 | P.PN ---
Subjective Progress Note Date: 01/10/23 Hospital Course: 82-year-old male with history of diabetes, hypertension, dyslipidemia presenting with left third digit swelling. In the ED, temperature was 98.4, pulse 83, respiratory rate 20, blood pressure 98/56, saturating at 97% on room air. WBC 9.6, hemoglobin 10.1, ESR 99, chloride 109, bicarb 21, creatinine 1.56, glucose 186, lactate 2.2, CRP 20.8. An x-ray showed third digit distal interphalangeal joint with some irregular appearance around the joint consistent with soft tissue swelling, concerning for infection. Patient started on IV vancomycin and was given a dose of Unasyn as well. Orthopedic surgery and ID consulted. Status post ray resection. Antibiotics switched to IV cefazolin. Patient will require midline and IV antibiotics. Patient pending discharge to rehab. Subjective: Patient seen and examined at bedside. No acute events overnight. Denies any significant pain. Back rash is improving. Had a fever yesterday. Pertinent positives and negatives as discussed above, a complete review of systems was performed and all other systems are negative. Vitals Signs Reviewed. General: nontoxic, no distress, appears at stated age, morbidly obese Derm: warm, dry, dressing clean, dry, intact, erythematous maculopapular rash in dependent areas as well as intereginous areas, improving Head: atraumatic, normocephalic, symmetric Eyes: EOMI, no lid lag, anicteric sclera, pupils equal round reactive to light ENT: Nose and ears atraumatic Neck: No thyromegaly, supple Mouth: no lip lesion, mucus membranes moist Cardiovascular: S1S2 reg, no murmur, trace peripheral edema Lungs: clear to auscultation bilateral, no rhonchi, no rales, no wheeze, no accessory muscle use Abdominal: soft, nontender to palpation, no guarding, no appreciable organomegaly Neuro: CN II-XII grossly intact Psych: Alert, oriented, appropriate affect Data Reviewed Today: Pertinent Labs: CBC 7.3, hemoglobin 9.2, sodium 134, potassium 3.8, creatinine 1.19, blood sugars range between 177. Imaging: No new imaging Assessment and Plan: Due to active fevers despite being on antibiotics, concern for worsening infection. Active: Left third digit abscess and cellulitis status post ray resection Tenosynovitis, resolved -ID following, on cefazolin IV 2 g every 8 hours, will need a midline and IV antibiotics at discharge -Orthopedic following, continue supportive care, may be discharged from the standpoint, signed off -He did have a fever yesterday, repeat blood cultures negative growth to date -CRP is still slightly elevated Dermatitis, likely contact -Topical hydrocortisone 1% Type 2 diabetes -Hold home medications, continue on sliding scale insulin, monitor for hy poglycemia Normocytic anemia -No active bleeding, outpatient workup Resolved: Lactic acidosis Metabolic acidosis Acute kidney injury Chronic: Hypertension Dyslipidemia DVT ppx : subcu heparin Code status: Full code Anticipated discharge place: Rehab Anticipated discharge time: Pending clinical course Objective - Vital Signs Vital signs: Vital Signs Temp 97.7 F 01/10/23 12:53 Pulse 77 01/10/23 12:53 Resp 20 01/10/23 12:53 BP 116/69 01/10/23 12:53 Pulse Ox 93 L 01/10/23 12:53 FiO2 Intake & Output 01/09/23 01/10/23 01/10/23 18:59 06:59 18:59 Intake Total 100 650 Output Total 1250 950 Balance -1150 -300 Intake: Intake, IV Titration 100 50 Amount ceFAZolin 2 gm In Sodium 100 50 Chloride 0.9% 50 ml @ 100 mls/hr IVPB Q8HR [facility] Rx# :[id number] Oral 600 Output: Urine 1250 950 Other: Voiding Method External Catheter External Catheter External Catheter - Labs CBC & Chem 7: 01/10/23 05:47 01/10/23 05:47 Labs: Abnormal Lab Results - Last 24 Hours (Table) 01/09/23 01/09/23 01/10/23 Range/Units 17:31 20:03 05:47 RBC 2.90 L (4.30-5.90) m/uL Hgb 9.2 L (13.0-17.5) gm/dL Hct 28.0 L (39.0-53.0) % Lymphocytes # 0.8 L (1.0-4.8) k/uL Sodium (137-145) mmol/L BUN (9-20) mg/dL Glucose (74-99) mg/dL POC Glucose (mg/dL) 293 H 327 H (70-110) mg/dL C-Reactive Protein (<1.0) mg/dL 01/10/23 01/10/23 01/10/23 Range/Units 05:47 07:38 12:16 RBC (4.30-5.90) m/uL Hgb (13.0-17.5) gm/dL Hct (39.0-53.0) % Lymphocytes # (1.0-4.8) k/uL Sodium 134 L (137-145) mmol/L BUN 28 H (9-20) mg/dL Glucose 177 H (74-99) mg/dL POC Glucose (mg/dL) 225 H 274 H (70-110) mg/dL C-Reactive Protein 19.5 H (<1.0) mg/dL Microbiology - Last 24 Hours (Table) 01/05/23 23:40 Anaerobic Culture - Final Finger - Left Third Anaerobic Gram Positive Cocci 01/05/23 22:05 Anaerobic Culture - Final Finger - Left Third Anaerobic Gram Positive Cocci 01/04/23 10:48 Blood Culture - Final Blood 01/04/23 10:20 Blood Culture - Final Blood
[2023-01-10 17:18] LABS: Glucose,Whole Blood 262 mg/dL (70-110)
[2023-01-10 21:09] LABS: Glucose,Whole Blood 257 mg/dL (70-110)
[2023-01-10 21:31] VITALS: RESP 16
[2023-01-11] MEDS: HEPARIN SODIUM,PORCINE 5,000 UNIT/ML 1 ML VIAL SQ SCH ×2 (00:46→08:56)
[2023-01-11] MEDS: diphenhydrAMINE 25 MG CAP PO PRN (00:57)
[2023-01-11 07:59] LABS: Glucose,Whole Blood 199 mg/dL (70-110)
[2023-01-11 08:56] VITALS: BP 128/77; PULSE 107; TEMP 98
[2023-01-11] MEDS: lisinopriL 20 MG TAB PO SCH (08:56)
[2023-01-11] MEDS: INSULIN ASPART (NovoLOG) 100 UNIT/ML VIAL SQ SCH (08:56)
[2023-01-11] MEDS: SENNOSIDES 8.6 MG TAB PO SCH (08:56)
[2023-01-11] MEDS: TAMSULOSIN 0.4 MG CAP.ER.24H PO SCH (08:56)
[2023-01-11] MEDS: METOPROLOL TARTRATE 25 MG TAB PO SCH (08:57)
[2023-01-11] MEDS: DULoxetine HCL 30 MG CAPSULE.DR PO SCH (08:57)
[2023-01-11] MEDS: FUROSEMIDE 40 MG TAB PO SCH (08:57)
[2023-01-11] MEDS: ATORVASTATIN 40 MG TAB PO SCH (08:57)
--- NOTE | 2023-01-11 10:33 | P.DS ---
Providers Date of admission: 01/05/23 12:33 Expected date of discharge: 01/11/23 Attending physician: Eugenie Robert MD Consults: 01/04/23 12:09 Consult Physician Stat Consulting Provider: Catina Camara Consult Reason/Comments: finger infection Do you want consulting provider notified?: Yes Consult Physician Stat Consulting Provider: Rosemarie Recinos Consult Reason/Comments: finger infection Do you want consulting provider notified?: Yes Primary care physician: Sergio Correa Hospital Course: Discharge Diagnosis: Left third digit abscess and cellulitis status post ray resection Tenosynovitis Dermatitis, likely contact Type 2 diabetes Normocytic anemia Lactic acidosis Metabolic acidosis Acute kidney injury Hypertension Dyslipidemia Hospital Course: 82-year-old male with history of diabetes, hypertension, dyslipidemia presenting with left third digit swelling. In the ED, temperature was 98.4, pulse 83, respiratory rate 20, blood pressure 98/56, saturating at 97% on room air. WBC 9.6, hemoglobin 10.1, ESR 99, chloride 109, bicarb 21, creatinine 1.56, glucose 186, lactate 2.2, CRP 20.8. An x-ray showed third digit distal interphalangeal joint with some irregular appearance around the joint consistent with soft tissue swelling, concerning for infection. Patient started on IV vancomycin and was given a dose of Unasyn as well. Orthopedic surgery and ID consulted. Status post ray resection. Antibiotics switched to IV cefazolin. Patient had a midline placed for IV antibiotics for 10 days. Patient being discharge to rehab. He was also noted to have normocytic anemia, needs outpatient workup. Patient seen and examined at bedside. Vital signs reviewed and stable. General: nontoxic, no distress, appears at stated age, morbidly obese Derm: warm, dry, dressing clean, dry, intact, erythematous maculopapular rash in dependent areas as well as intereginous areas, improving Head: atraumatic, normocephalic, symmetric Eyes: EOMI, no lid lag, anicteric sclera, pupils equal round reactive to light ENT: Nose and ears atraumatic Neck: No thyromegaly, supple Mouth: no lip lesion, mucus membranes moist Cardiovascular: S1S2 reg, no murmur, trace peripheral edema Lungs: clear to auscultation bilateral, no rhonchi, no rales, no wheeze, no accessory muscle use Abdominal: soft, nontender to palpation, no guarding, no appreciable organomegaly Neuro: CN II-XII grossly intact Psych: Alert, oriented, appropriate affect A total of 35 minutes of time were spent preparing this complex discharge summary. Patient was discharged on 01/11/23 at 10:27. Patient Condition at Discharge: Stable Plan - Discharge Summary Discharge Rx Participant: No New Discharge Prescriptions: New polyethylene glycoL 3350 [Miralax] 17 gm PO DAILY PRN packet PRN Reason: Constipation Sennosides [Senokot] 8.6 mg PO BID #0 tab diphenhydrAMINE [Benadryl] 25 mg PO BID PRN cap PRN Reason: Itching Hydrocortisone Cream [Hydrocortisone 1% Cream] 1 applic TOPICAL QID PRN each PRN Reason: Skin Irritation ceFAZolin [Kefzol] 2 gm IVP Q8HR 10 Days ml HYDROcodone/APAP 5-325MG [[place] 5-325] 1 each PO Q4HR PRN #10 tab PRN Reason: Pain Continue metFORMIN HCL [Glucophage] 500 mg PO BID Tamsulosin HCl [Flomax] 0.8 mg PO DAILY Furosemide [Lasix] 40 mg PO DAILY lisinopriL [Zestril] 20 mg PO DAILY Glimepiride [Amaryl] 4 mg PO BID Atorvastatin [Lipitor] 40 mg PO DAILY sitaGLIPtin [Januvia] 100 mg PO DAILY Metoprolol Tartrate 25 mg PO DAILY DULoxetine HCL [Cymbalta] 30 mg PO DAILY Discontinued Pioglitazone [Actos] 45 mg PO DAILY Discharge Medication List Atorvastatin [Lipitor] 40 mg PO DAILY 08/19/16 [History] Furosemide [Lasix] 40 mg PO DAILY 08/19/16 [History] Glimepiride [Amaryl] 4 mg PO BID 08/19/16 [History] Tamsulosin HCl [Flomax] 0.8 mg PO DAILY 08/19/16 [History] lisinopriL [Zestril] 20 mg PO DAILY 08/19/16 [History] metFORMIN HCL [Glucophage] 500 mg PO BID 08/19/16 [History] DULoxetine HCL [Cymbalta] 30 mg PO DAILY 01/04/23 [History] Metoprolol Tartrate 25 mg PO DAILY 01/04/23 [History] sitaGLIPtin [Januvia] 100 mg PO DAILY 01/04/23 [History] HYDROcodone/APAP 5-325MG [Winton 5-325] 1 each PO Q4HR PRN #10 tab 01/11/23 [Rx] Hydrocortisone Cream [Hydrocortisone 1% Cream] 1 applic TOPICAL QID PRN each 01/11/23 [Rx] Sennosides [Senokot] 8.6 mg PO BID #0 tab 01/11/23 [Rx] ceFAZolin [Kefzol] 2 gm IVP Q8HR 10 Days ml 01/11/23 [Rx] diphenhydrAMINE [Benadryl] 25 mg PO BID PRN cap 01/11/23 [Rx] polyethylene glycoL 3350 [Miralax] 17 gm PO DAILY PRN packet 01/11/23 [Rx] Follow up Appointment(s)/Referral(s): Rosemarie Recinos DO [Doctor of Osteopathic Medicine] - 1 Week Elisabeth Robin PAC [REFERRING[facility] Patient Instructions/Handouts: Tenosynovitis (GEN) Activity/Diet/Wound Care/Special Instructions: keep wound clean and dry elevate daily light dressing changes f/u Dr. Recinos in office for suture removal 1 week Discharge Disposition: TRANSFER TO SNF/ECF
[2023-01-11] MEDS ORDERED: AMPICILLIN-SULBACTAM 3 GM in SODIUM CHLORIDE 0.9% 100 ML IVPB SCH (12:00)
--- NOTE | 2023-01-11 14:42 | P.OP ---
Date of Procedure: 01/05/23 Preoperative Diagnosis: Left middle finger abscess, flexor tenosynovitis Postoperative Diagnosis: same Procedure(s) Performed: left middle finger ray resection Anesthesia: SHAD, local Surgeon: Rosemarie Recinos Estimated Blood Loss (ml): 5 Pathology: other Condition: stable Disposition: PACU Indications for Procedure: Patient has had swelling in the digit with pain. Despite antibiotics the pain and swelling is spreading in the palm of his hand. There is purulent drainage from his DIP joint and the entire digit is quite swollen and erythematous. We talked about treatment options and given the extent of the infection, we decided to proceed with a ray resection. Operative Findings: Purulent fluid was present in the entire flexor tendon sheath. There was no purulence noted in the carpal tunnel. Description of Procedure: The patient, operative extremity, and procedure were identitifed in the preop area. Once consent was obtained, the patient was brought back to the OR where a local block was performed. The extremtiy was prepped and draped in normal staerile fashion with a tourniquet. After a formal time out was performed, tourniquet was inflated. A lasso shaped incision was made around the base of the middle finger. It was extended in a aureliano fashion to kaplans cardinal line. Volarly, the dissection was carried down to the A1 juan. Once accessed, there was murky fluid noted around the flexor tendons about the juan. The wound was cultured and then irrigated copiously with normal saline. The tendons were pulled distally and transected with a knife. Dissection was continued distally. The common digital nerves were followed distally and the digital nerves and arteries to the middle finger were clamped, cauterized, and cut. The periosteum around the metacarpal was longitudinally cut. The metacarpal was exposed and a sagital saw was used to transect the metacarpal at the isthmus. The hand was turned and the dorsal dissection was carried through the extensor apparatus. The digit was then removed. The wound was again thoroughly irrigated. Further milking of the proximal wound did not demonstrate any further purulence or murky fluid. The intermetacarpal ligaments were identified and tied together with 0 PDS suture. This closed the metacarpal gap. The remaining gap was filled with surgifoam. The tourniquet was let down, hemostasis achieved and the remainder of the wound was closed with 4.0 nylon suture. Wound was dressed with adaptic, gauze, and an ortiz wrap.
--- NOTE | 2023-01-17 16:19 | P.PN ---
Subjective Progress Note Date: 01/10/23 Principal diagnosis: Reason for follow-up is left third finger abscess and cellulitis Patient is a 82-year-old male with a past medical history significant for diabetes mellitus hypertension hyperlipidemia presented to the hospital for evaluation of left third finger swelling and pain , patient been diagnosed with the left third finger abscess , the patient is status post left third finger amputation completed on 01/05/2023 on today's evaluation that is 01/10/2023, the patient did have a low-grade fever 100.9 F yesterday afternoon the patient is afebrile since then, the patient is breathing comfortably on room air and the patient denies any shortness of breath , the patient denies chest pain or any cough , patient denies any nausea/vomiting abdominal pain or diarrhea, the patient denies any worsening pain to the left hand area. Patient did have white count of 7.3, creatinine 1.19, Objective - Vital Signs Vital signs: Vital Signs Temp 97.4 F L 01/10/23 01:03 Pulse 101 H 01/10/23 01:03 Resp 19 01/10/23 01:03 BP 120/66 01/10/23 01:03 Pulse Ox 92 L 01/10/23 01:03 FiO2 Intake & Output 01/09/23 01/10/23 01/10/23 18:59 06:59 18:59 Intake Total 100 650 Output Total 1250 950 Balance -1150 -300 Intake: Intake, IV Titration 100 50 Amount ceFAZolin 2 gm In Sodium 100 50 Chloride 0.9% 50 ml @ 100 mls/hr IVPB Q8HR [facility] Rx# :[id number] Oral 600 Output: Urine 1250 950 Other: Voiding Method External Catheter External Catheter - Exam GENERAL DESCRIPTION: An elderly male lying in bed in no distress RESPIRATORY SYSTEM: Unlabored breathing , clear to auscultation anteriorly HEART: S1 S2 regular rate and rhythm , ABDOMEN: Soft , no tenderness EXTREMITIES: Left third finger amputation site wound is closed minimal erythema - Labs CBC & Chem 7: 01/10/23 05:47 01/10/23 05:47 Labs: Abnormal Lab Results - Last 24 Hours (Table) 01/09/23 01/09/23 01/09/23 Range/Units 12:08 17:31 20:03 RBC (4.30-5.90) m/uL Hgb (13.0-17.5) gm/dL Hct (39.0-53.0) % Lymphocytes # (1.0-4.8) k/uL Sodium (137-145) mmol/L BUN (9-20) mg/dL Glucose (74-99) mg/dL POC Glucose (mg/dL) 323 H 293 H 327 H (70-110) mg/dL C-Reactive Protein (<1.0) mg/dL 01/10/23 01/10/23 Range/Units 05:47 05:47 RBC 2.90 L (4.30-5.90) m/uL Hgb 9.2 L (13.0-17.5) gm/dL Hct 28.0 L (39.0-53.0) % Lymphocytes # 0.8 L (1.0-4.8) k/uL Sodium 134 L (137-145) mmol/L BUN 28 H (9-20) mg/dL Glucose 177 H (74-99) mg/dL POC Glucose (mg/dL) (70-110) mg/dL C-Reactive Protein 19.5 H (<1.0) mg/dL Microbiology - Last 24 Hours (Table) 01/05/23 23:40 Anaerobic Culture - Final Finger - Left Third Anaerobic Gram Positive Cocci 01/05/23 22:05 Anaerobic Culture - Final Finger - Left Third Anaerobic Gram Positive Cocci 01/04/23 10:48 Blood Culture - Final Blood 01/04/23 10:20 Blood Culture - Final Blood Assessment and Plan (1) Finger infection Status: Acute Code(s): L08.9 - LOCAL INFECTION OF THE SKIN AND SUBCUTANEOUS TISSUE, UNSP SNOMED Code(s): 642163433 Plan: 1patient presented to hospital left third finger abscess and cellulitis started with a trauma with evidence of abscess clinically likely from gram-positive skin bro failing outpatient oral amoxicillin therapy, local cultures currently growing MSSA and group B strep 2Patient is status post left third finger amputation and a culture was a currently growing strep and MSSA 3patient did spike a low-grade fever this afternoon which is slightly concerning for which blood culture had BMP to check currently pending continue with the cefazolin and monitor clinical course closely Dictation was produced using [employer] dictation software. please excuse any grammatical, word or spelling errors. Time with Patient: Less than 30
--- NOTE | 2023-01-17 16:20 | P.PN ---
Subjective Progress Note Date: 01/07/23 Principal diagnosis: Reason for follow-up is left third finger abscess and cellulitis Patient is a 82-year-old male with a past medical history significant for diabetes mellitus hypertension hyperlipidemia presented to the hospital for evaluation of left third finger swelling and pain , patient been diagnosed with the left third finger abscess , the patient is status post left third finger amputation completed on 01/05/2023 on today's evaluation that is 01/07/2023, the patient continues to be afebrile, the patient is breathing comfortably on room air and the patient denies chest pain shortness of breath or cough , patient denies nausea/vomiting , no abdominal pain and no diarrhea, denies any worsening pain to the left third finger amputation site Patient did have a white count of 7.25, creatinine 1.2 as of 01/06/2023 , cultures with group B strep and MSSA, OR Cultures Pending Objective - Vital Signs Vital signs: Vital Signs Temp 97.8 F 01/07/23 12:30 Pulse 108 H 01/07/23 12:30 Resp 18 01/07/23 12:30 BP 117/69 01/07/23 12:30 Pulse Ox 92 L 01/07/23 12:30 FiO2 Intake & Output 01/06/23 01/07/23 01/07/23 18:59 06:59 18:59 Intake Total 1040 Output Total 700 1000 Balance 340 -1000 Intake: Oral 1040 Output: Urine 700 1000 Other: Voiding Method External Catheter External Catheter External Catheter - Exam GENERAL DESCRIPTION: An elderly male lying in bed in no distress RESPIRATORY SYSTEM: Unlabored breathing , clear to auscultation anteriorly HEART: S1 S2 regular rate and rhythm , ABDOMEN: Soft , no tenderness EXTREMITIES: Left third finger amputation site is currently dressed - Labs CBC & Chem 7: 01/06/23 04:44 01/06/23 04:44 Labs: Abnormal Lab Results - Last 24 Hours (Table) 01/06/23 01/06/23 01/07/23 Range/Units 17:08 : 08:17 POC Glucose (mg/dL) 188 H 201 H 154 H (70-110) mg/dL 01/07/23 Range/Units 11:58 POC Glucose (mg/dL) 220 H (70-110) mg/dL Microbiology - Last 24 Hours (Table) 01/05/23 23:40 Gram Stain - Preliminary Finger - Left Third Tissue Culture - Preliminary Presumptive Staph aureus Strep agalactiae - (group b) 01/05/23 22:05 Gram Stain - Preliminary Finger - Left Third Wound Culture - Preliminary Strep agalactiae - (group b) 01/04/23 10:48 Blood Culture - Preliminary Blood 01/04/23 10:20 Blood Culture - Preliminary Blood Assessment and Plan (1) Finger infection Current Visit: Yes Status: Acute Code(s): L08.9 - LOCAL INFECTION OF THE SKIN AND SUBCUTANEOUS TISSUE, UNSP SNOMED Code(s): 922671235 Plan: 1patient presented to hospital left third finger abscess and cellulitis started with a trauma with evidence of abscess clinically likely from gram-positive skin bro failing outpatient oral amoxicillin therapy, local cultures currently growing MSSA and group B strep 2Patient is status post left third finger amputation and a culture was a currently pending 3Pt to continue with cefazolin 2 g every 8 hours and monitor clinical course closely Dictation was produced using [employer] dictation software. please excuse any grammatical, word or spelling errors.
--- NOTE | 2023-01-17 16:20 | P.PN ---
Subjective Progress Note Date: 01/11/23 Principal diagnosis: Reason for follow-up is left third finger abscess and cellulitis Patient is a 82-year-old male with a past medical history significant for diabetes mellitus hypertension hyperlipidemia presented to the hospital for evaluation of left third finger swelling and pain , patient been diagnosed with the left third finger abscess , the patient is status post left third finger amputation completed on 01/05/2023 on today's evaluation that is 01/11/2023, the patient is afebrile today, the patient is breathing comfortably on room air and the patient denies any chest pain shortness of breath or any cough , patient denies any nausea/vomiting abdominal pain or diarrhea, the patient denies any worsening pain to the left hand area. Patient did have white count of 7.3, creatinine 1.19 as of yesterday no CBC was done today, local culture growing MSSA as well as anaerobe Objective - Vital Signs Vital signs: Vital Signs Temp 98 F 01/11/23 07:54 Pulse 107 H 01/11/23 07:54 Resp 16 01/11/23 07:54 BP 128/77 01/11/23 07:54 Pulse Ox 93 L 01/11/23 07:54 FiO2 Intake & Output 01/10/23 01/11/23 01/11/23 18:59 06:59 18:59 Intake Total 590 Output Total 500 700 Balance -500 -110 Intake: Oral 590 Output: Urine 500 700 Other: Voiding Method External Catheter External Catheter - Exam GENERAL DESCRIPTION: An elderly male lying in bed in no distress RESPIRATORY SYSTEM: Unlabored breathing , clear to auscultation anteriorly HEART: S1 S2 regular rate and rhythm , ABDOMEN: Soft , no tenderness EXTREMITIES: Left third finger amputation site wound is closed minimal erythema - Labs CBC & Chem 7: 01/10/23 05:47 01/10/23 05:47 Labs: Abnormal Lab Results - Last 24 Hours (Table) 01/10/23 01/10/23 01/10/23 Range/Units 12:16 17:17 21:07 POC Glucose (mg/dL) 274 H 262 H 257 H (70-110) mg/dL 01/11/23 Range/Units 07:58 POC Glucose (mg/dL) 199 H (70-110) mg/dL Assessment and Plan (1) Finger infection Status: Acute Code(s): L08.9 - LOCAL INFECTION OF THE SKIN AND SUBCUTANEOUS TISSUE, UNSP SNOMED Code(s): 241909275 Plan: 1patient presented to hospital left third finger abscess and cellulitis started with a trauma with evidence of abscess clinically likely from gram-positive skin bro failing outpatient oral amoxicillin therapy, local cultures currently growing MSSA and group B strep 2Patient is status post left third finger amputation and a culture was a currently growing strep and MSSA, culture now also growing anaerobes 3patient antibiotic has been adjusted to Unasyn to continue for another 10 days on discharge and close outpatient follow-up Dictation was produced using [employer] dictation software. please excuse any grammatical, word or spelling errors.
== END 2023-01-11 11:56 | DRG 513 ==
LOC: EC 10:16 → 5NMEDONC 10:44 → OBSVTOIN 01-05 12:33
PROVIDERS: ADMIT Internal Medicine; ATTEND Internal Medicine
PROC: 0X6R0Z0 Detachment at Left Middle Finger, Complete, Open Approach (ICD-10-PCS; principal; 2023-01-05 07:30)
DX: M65.142 Other infective (teno)synovitis, left hand (principal); E87.20 Acidosis, unspecified; N17.9 Acute kidney failure, unspecified; L02.512 Cutaneous abscess of left hand; D63.1 Anemia in chronic kidney disease; E11.22 Type 2 diabetes mellitus with diabetic chronic kidney disease; E66.01 Morbid (severe) obesity due to excess calories; N18.30 Chronic kidney disease, stage 3 unspecified; Z66 Do not resuscitate; I12.9 Hypertensive chronic kidney disease with stage 1 through stage 4 chronic kidney disease, or unspecified chronic kidney disease; B95.4 Other streptococcus as the cause of diseases classified elsewhere; B95.61 Methicillin susceptible Staphylococcus aureus infection as the cause of diseases classified elsewhere; E78.5 Hyperlipidemia, unspecified; M19.90 Unspecified osteoarthritis, unspecified site; L03.012 Cellulitis of left finger; L25.9 Unspecified contact dermatitis, unspecified cause; Z96.649 Presence of unspecified artificial hip joint; Z96.619 Presence of unspecified artificial shoulder joint; Z96.659 Presence of unspecified artificial knee joint; Z68.39 Body mass index [BMI] 39.0-39.9, adult; Z79.899 Other long term (current) drug therapy; Z79.84 Long term (current) use of oral hypoglycemic drugs
CPT/HCPCS: 36410; 36415; 76937; 80048; 80053; 83036; 83605; 85025; 85652; 86140; 87040; 87070; 87075; 87077; 87186; 87205; 96365; 96366; 96367; 99285

== ENCOUNTER 2023-04-05 07:37 | Inpatient (IN) | payer MEDICARE ==
--- NOTE | 2023-04-05 07:55 | ED ---
Altered Mental Status HPI - General Chief Complaint: Altered Mental Status Stated Complaint: ams Time Seen by Provider: 04/05/23 07:40 Source: patient, EMS, RN notes reviewed Mode of arrival: EMS Limitations: no limitations - History of Present Illness Initial Comments: This is an 82 year old male who presents to the emergency department for weakness. EMS states that they received a call from the patient's son for shortness of breath, and when they arrived the patient did seem to have some labored breathing followed by some dry heaving. Family states that last night he was feeling very weak and unlike himself and the patient states that he thought he was going to . This morning he started to have difficulty speaking. That has since resolved. States that he does continue to feel very weak. He is usually able to get around with a walker, but has been having to use a wheelchair over the last several days due to the weakness. Patient currently denies any chest pain, abdominal pain, nausea, or vomiting. He does note some difficulty urinating as well as some shortness of breath and coughing. He is currently alert and oriented x4. MD Complaint: altered mental status - Related Data Home Medications Medication Instructions Recorded Confirmed Atorvastatin [Lipitor] 40 mg PO HS 08/19/16 04/05/23 Furosemide [Lasix] 40 mg PO DAILY 08/19/16 04/05/23 Glimepiride [Amaryl] 4 mg PO BID 08/19/16 04/05/23 Tamsulosin HCl [Flomax] 0.8 mg PO HS 08/19/16 04/05/23 lisinopriL [Zestril] 20 mg PO DAILY 08/19/16 04/05/23 metFORMIN HCL [Glucophage] 500 mg PO BID 08/19/16 04/05/23 DULoxetine HCL [Cymbalta] 30 mg PO DAILY 01/04/23 04/05/23 Metoprolol Tartrate 25 mg PO DAILY 01/04/23 04/05/23 sitaGLIPtin [Januvia] 100 mg PO DAILY 01/04/23 04/05/23 Aspirin EC [Ecotrin Low Dose] 81 mg PO DAILY 04/05/23 04/05/23 Calcium Carbonate/Vitamin D3 1 tab PO DAILY 04/05/23 04/05/23 [Calcium 500-Vit D3 400 Chew Tb] Doxazosin [Cardura] 4 mg PO HS 04/05/23 04/05/23 Pioglitazone [Actos] 45 mg PO DAILY 04/05/23 04/05/23 Allergies Allergy/AdvReac Type Severity Reaction Status Date / Time No Known Allergies Allergy Verified 04/05/23 12:01 Review of Systems ROS Statement: Those systems with pertinent positive or pertinent negative responses have been documented in the HPI. ROS Other: All systems not noted in ROS Statement are negative. Past Medical History Past Medical History: Diabetes Mellitus, Hyperlipidemia, Hypertension History of Any Multi-Drug Resistant Organisms: None Reported Past Surgical History: Orthopedic Surgery Additional Past Surgical History / Comment(s): shoulder repracement, knee replacement, hip replacement Past Psychological History: No Psychological Hx Reported Smoking Status: Never smoker Past Alcohol Use History: None Reported Past Drug Use History: None Reported General Exam Limitations: no limitations General appearance: alert, in no apparent distress Head exam: Present: atraumatic, normocephalic, normal inspection Respiratory exam: Present: wheezes Cardiovascular Exam: Present: regular rate, normal rhythm, normal heart sounds. Absent: systolic murmur, diastolic murmur, rubs, gallop, clicks GI/Abdominal exam: Present: soft, normal bowel sounds. Absent: distended, tenderness, guarding, rebound, rigid Neurological exam: Present: alert, oriented X3, CN II-XII intact Psychiatric exam: Present: normal affect, normal mood Skin exam: Present: warm, dry, intact, normal color. Absent: rash Course Vital Signs 04/05/23 04/05/23 04/05/23 07:41 09:38 11:40 Temperature 98.1 F 97.6 F Pulse Rate 77 88 85 Respiratory 18 22 18 Rate Blood Pressure 101/52 126/70 106/63 O2 Sat by Pulse 96 95 96 Oximetry Medical Decision Making - Medical Decision Making This is an 82 year old male who presents to the emergency department for weakness. Was pt. sent in by a medical professional or institution? @ -No Did you speak to anyone other than the patient for history? @ -EMS provided the majority of the history Did you review nursing and triage notes? @ -Yes, and I agree, it is accurate with regards to the patient's symptoms. Were old charts reviewed? @ -No Differential Diagnosis? @ -Differential Weakness: Hypoglycemia, shock, sepsis, hyponatremia, anemia, infection, [place], ETOH, adverse medicine reaction, overdose, stroke, this is not meant to be an all-inclusive list. EKG interpreted by me (3pts min.)? @ -EKG interpreted by me demonstrating the following: Sinus bradycardia. Ventricular rate 59 beats per minute, ND interval 180 ms, QRS duration 173 ms, QTC 421 ms. X-rays interpreted by me (1pt min.)? @ -Chest x-ray obtained, my interpretation identifies no localized consoli dations or infiltrates. CT interpreted by me (1pt min.)? @ -CT scan of the brain obtained. My interpretation identifies no evidence of an acute intracranial hemorrhage U/S interpreted by me (1pt. min.)? @ -Not obtained What testing was considered but not performed? (CT, X-rays, U/S, labs)? Why? @ -None What meds were considered but not given? Why? @ -None Did you discuss the management of the patient with other professionals? @ -Yes, Yan with [facility], who accepts the patient for admission. Did you reconcile home meds? @ -No Was smoking cessation discussed for >3mins.? @ -No Was critical care preformed (if so, how long)? @ -No Were there social determinants of health that impacted care today? How? (Homelessness, low income, unemployed, alcoholism, drug addiction, trans portation, low edu. Level, literacy, decrease access to med. care, assisted, rehab)? @ -No Was there de-escalation of care discussed even if they declined? (Discuss DNR or withdrawal of care, Hospice)? @ -No What co-morbidities impacted this encounter? (DM, HTN, Smoking, COPD, CAD, Cancer, CVA, Hep., AIDS, mental health diagnosis, sleep apnea, morbid obesity)? @ -DM. HLD, HTN Was patient admitted / discharged? @ -Admitted. Lab work obtained demonstrating hyperkalemia with a potassium of 5.8. He also has an TAMI with a BUN of 104, creatinine of 2.88, and eGFR of 19. Glucose low at 65. COVID, influenza, and RSV testing were negative. Urinalysis consistent with infection. Urine sent for culture, blood cultures were obtained, and the patient was given 1g of Ceftriaxone. 10g of Lokelma, sodium bicarbonate, and calcium gluconate administered for hyperkalemia. He was given a 2L bolus of IV fluids for the TAMI. He was also given juice and crackers for the hypoglycemia and recheck of sugar was 113. CT scan of the brain obtained revealing no acute process. Chest x-ray reveals no acute process. Patient admitted to medicine for further management of TAMI, UTI, and weakness. Undiagnosed new problem with uncertain prognosis? @ -None Drug Therapy requiring intensive monitoring for toxicity (Heparin, Nitro, Insu jayant, Cardizem)? @ -None Were any procedures done? @ -None Diagnosis/symptom? @ -UTI, TAMI, Weakness Acute, or Chronic, or Acute on Chronic? @ -Acute Uncomplicated (without systemic symptoms) or Complicated (systemic symptoms)? @ -Complicated Side effects of treatment? @ -None Exacerbation, Progression, or Severe Exacerbation] @ -Not applicable Poses a threat to life or bodily function? @ -Yes This case was discussed in detail with the attending ED physician, Dr. Lafleur. Presentation, findings, and treatment plan discussed in detail as well. - Lab Data Result diagrams: 04/05/23 07:51 04/05/23 07:51 Lab Results 04/05/23 04/05/23 04/05/23 Range/Units 07:51 07:51 07:51 WBC 5.5 (3.8-10.6) k/uL RBC 2.82 L (4.30-5.90) m/uL Hgb 8.4 L (13.0-17.5) gm/dL Hct 26.5 L (39.0-53.0) % MCV 93.7 (80.0-100.0) fL MCH 29.6 (25.0-35.0) pg MCHC 31.6 (31.0-37.0) g/dL RDW 16.0 H (11.5-15.5) % Plt Count 121 L (150-450) k/uL MPV 8.3 Neutrophils % 77 % Lymphocytes % 15 % Monocytes % 6 % Eosinophils % 1 % Basophils % 0 % Neutrophils # 4.2 (1.3-7.7) k/uL Lymphocytes # 0.8 L (1.0-4.8) k/uL Monocytes # 0.4 (0-1.0) k/uL Eosinophils # 0.0 (0-0.7) k/uL Basophils # 0.0 (0-0.2) k/uL Hypochromasia Slight Anisocytosis Slight PT (10.0-12.5) sec INR (<1.2) APTT (22.0-30.0) sec Sodium 139 (137-145) mmol/L Potassium 5.8 H (3.5-5.1) mmol/L Chloride 114 H (98-107) mmol/L Carbon Dioxide 14 L (22-30) mmol/L Anion Gap 11 mmol/L BUN 104 H* (9-20) mg/dL Creatinine 2.88 H (0.66-1.25) mg/dL Est GFR (CKD-EPI)AfAm 22 (>60 ml/min/1.73 sqM) Est GFR (CKD-EPI)NonAf 19 (>60 ml/min/1.73 sqM) Glucose 65 L (74-99) mg/dL POC Glucose (mg/dL) (70-110) mg/dL POC Glu Back Line Cook ID Plasma Lactic Acid Louis (0.7-2.0) mmol/L Calcium 9.4 (8.4-10.2) mg/dL Phosphorus (2.5-4.5) mg/dL Magnesium (1.6-2.3) mg/dL Total Bilirubin 0.3 (0.2-1.3) mg/dL AST 22 (17-59) U/L ALT 15 (4-49) U/L Alkaline Phosphatase 66 (38-126) U/L Troponin I (0.000-0.034) ng/mL Total Protein 7.1 (6.3-8.2) g/dL Albumin 3.4 L (3.5-5.0) g/dL Urine Color Colorless Urine Appearance Turbid (Clear) Urine pH 5.0 (5.0-8.0) Ur Specific [place] 1.014 (1.001-1.035) Urine Protein Trace H (Negative) Urine Glucose (UA) Negative (Negative) Urine Ketones Negative (Negative) Urine Blood Trace H (Negative) Urine Nitrite Negative (Negative) Urine Bilirubin Negative (Negative) Urine Urobilinogen <2.0 (<2.0) mg/dL Ur Leukocyte Esterase Large H (Negative) Urine RBC 2 (0-5) /hpf Urine WBC >182 H (0-5) /hpf Urine WBC Clumps Many H (None) /hpf Urine Bacteria Many H (None) /hpf Urine Mucus Rare H (None) /hpf Influenza Type A (PCR) (Not Detectd) Influenza Type B (PCR) (Not Detectd) RSV (PCR) (Not Detectd) SARS-CoV-2 (PCR) (Not Detectd) 04/05/23 04/05/23 04/05/23 Range/Units 07:51 07:51 07:51 WBC (3.8-10.6) k/uL RBC (4.30-5.90) m/uL Hgb (13.0-17.5) gm/dL Hct (39.0-53.0) % MCV (80.0-100.0) fL MCH (25.0-35.0) pg MCHC (31.0-37.0) g/dL RDW (11.5-15.5) % Plt Count (150-450) k/uL MPV Neutrophils % % Lymphocytes % % Monocytes % % Eosinophils % % Basophils % % Neutrophils # (1.3-7.7) k/uL Lymphocytes # (1.0-4.8) k/uL Monocytes # (0-1.0) k/uL Eosinophils # (0-0.7) k/uL Basophils # (0-0.2) k/uL Hypochromasia Anisocytosis PT (10.0-12.5) sec INR (<1.2) APTT (22.0-30.0) sec Sodium (137-145) mmol/L Potassium (3.5-5.1) mmol/L Chloride (98-107) mmol/L Carbon Dioxide (22-30) mmol/L Anion Gap mmol/L BUN (9-20) mg/dL Creatinine (0.66-1.25) mg/dL Est GFR (CKD-EPI)AfAm (>60 ml/min/1.73 sqM) Est GFR (CKD-EPI)NonAf (>60 ml/min/1.73 sqM) Glucose (74-99) mg/dL POC Glucose (mg/dL) (70-110) mg/dL POC Glu Back Line Cook ID Plasma Lactic Acid Louis (0.7-2.0) mmol/L Calcium (8.4-10.2) mg/dL Phosphorus 5.9 H (2.5-4.5) mg/dL Magnesium 2.4 H (1.6-2.3) mg/dL Total Bilirubin (0.2-1.3) mg/dL AST (17-59) U/L ALT (4-49) U/L Alkaline Phosphatase (38-126) U/L Troponin I <0.012 (0.000-0.034) ng/mL Total Protein (6.3-8.2) g/dL Albumin (3.5-5.0) g/dL Urine Color Urine Appearance (Clear) Urine pH (5.0-8.0) Ur Specific [place] (1.001-1.035) Urine Protein (Negative) Urine Glucose (UA) (Negative) Urine Ketones (Negative) Urine Blood (Negative) Urine Nitrite (Negative) Urine Bilirubin (Negative) Urine Urobilinogen (<2.0) mg/dL Ur Leukocyte Esterase (Negative) Urine RBC (0-5) /hpf Urine WBC (0-5) /hpf Urine WBC Clumps (None) /hpf Urine Bacteria (None) /hpf Urine Mucus (None) /hpf Influenza Type A (PCR) Not Detected (Not Detectd) Influenza Type B (PCR) Not Detected (Not Detectd) RSV (PCR) Not Detected (Not Detectd) SARS-CoV-2 (PCR) Not Detected (Not Detectd) 04/05/23 04/05/23 04/05/23 Range/Units 08:06 09:00 10:04 WBC (3.8-10.6) k/uL RBC (4.30-5.90) m/uL Hgb (13.0-17.5) gm/dL Hct (39.0-53.0) % MCV (80.0-100.0) fL MCH (25.0-35.0) pg MCHC (31.0-37.0) g/dL RDW (11.5-15.5) % Plt Count (150-450) k/uL MPV Neutrophils % % Lymphocytes % % Monocytes % % Eosinophils % % Basophils % % Neutrophils # (1.3-7.7) k/uL Lymphocytes # (1.0-4.8) k/uL Monocytes # (0-1.0) k/uL Eosinophils # (0-0.7) k/uL Basophils # (0-0.2) k/uL Hypochromasia Anisocytosis PT 10.1 (10.0-12.5) sec INR 0.9 (<1.2) APTT 19.5 L (22.0-30.0) sec Sodium (137-145) mmol/L Potassium (3.5-5.1) mmol/L Chloride (98-107) mmol/L Carbon Dioxide (22-30) mmol/L Anion Gap mmol/L BUN (9-20) mg/dL Creatinine (0.66-1.25) mg/dL Est GFR (CKD-EPI)AfAm (>60 ml/min/1.73 sqM) Est GFR (CKD-EPI)NonAf (>60 ml/min/1.73 sqM) Glucose (74-99) mg/dL POC Glucose (mg/dL) 113 H (70-110) mg/dL POC Glu Back Line Cook ID EdgarPolyta Plasma Lactic Acid Louis 1.0 (0.7-2.0) mmol/L Calcium (8.4-10.2) mg/dL Phosphorus (2.5-4.5) mg/dL Magnesium (1.6-2.3) mg/dL Total Bilirubin (0.2-1.3) mg/dL AST (17-59) U/L ALT (4-49) U/L Alkaline Phosphatase (38-126) U/L Troponin I (0.000-0.034) ng/mL Total Protein (6.3-8.2) g/dL Albumin (3.5-5.0) g/dL Urine Color Urine Appearance (Clear) Urine pH (5.0-8.0) Ur Specific [place] (1.001-1.035) Urine Protein (Negative) Urine Glucose (UA) (Negative) Urine Ketones (Negative) Urine Blood (Negative) Urine Nitrite (Negative) Urine Bilirubin (Negative) Urine Urobilinogen (<2.0) mg/dL Ur Leukocyte Esterase (Negative) Urine RBC (0-5) /hpf Urine WBC (0-5) /hpf Urine WBC Clumps (None) /hpf Urine Bacteria (None) /hpf Urine Mucus (None) /hpf Influenza Type A (PCR) (Not Detectd) Influenza Type B (PCR) (Not Detectd) RSV (PCR) (Not Detectd) SARS-CoV-2 (PCR) (Not Detectd) - Radiology Data Radiology results: report reviewed, image reviewed Disposition Clinical Impression: UTI (urinary tract infection), TAMI (acute kidney injury), Weakness Disposition: ADMITTED IP TO THIS [facility] Time of Disposition: 10:21
[2023-04-05] MEDS: SODIUM CHLORIDE 0.9% 1,000 ML IV ONE (08:12)
[2023-04-05 08:19] LABS: Anisocytosis Slight; Basophils % (A) 0 %; Eosinophils % (A) 1 %; HCT 26.5 % (39.0-53.0); HGB 8.4 gm/dL (13.0-17.5); Hypochromasia Slight; Lymphocytes # (A) 0.8 k/uL (1.0-4.8); Lymphocytes % (A) 15 %; MCH 29.6 pg (25.0-35.0); MCHC 31.6 g/dL (31.0-37.0); MCV 93.7 fL (80.0-100.0); Mean Platelet Volume 8.3; Monocytes # (A) 0.4 k/uL (0-1.0); Monocytes % (A) 6 %; Neutrophils # (A) 4.2 k/uL (1.3-7.7); Neutrophils % (A) 77 %; Platelet Count 121 k/uL (150-450); RBC 2.82 m/uL (4.30-5.90); WBC 5.5 k/uL (3.8-10.6)
[2023-04-05 08:32] LABS: Appearance,Urine Turbid (Clear); Bacteria,Urine Many /hpf; Bilirubin,Urine Negative (Negative); Blood,Urine Trace (Negative); Color,Urine Colorless; Glucose,Urine (UA) Negative (Negative); Ketones,Urine Negative (Negative); Leukocyte Esterase,Urine Large (Negative); Mucus,Urine Rare /hpf; Nitrite,Urine Negative (Negative); Protein,Urine Trace (Negative); RBC,Urine 2 /hpf (0-5); Specific Gravity,Urine 1.014 (1.001-1.035); Urobilinogen,Urine <2.0 mg/dL (<2.0); WBC,Urine >182 /hpf (0-5)
[2023-04-05 08:40] LABS: ALT 15 U/L (4-49); AST 22 U/L (17-59); African American GFR (CKD) 22 (>60 ml/min/1.73 sqM); Albumin 3.4 g/dL (3.5-5.0); Alkaline Phosphatase 66 U/L (38-126); Anion Gap 11 mmol/L; Calcium 9.4 mg/dL (8.4-10.2); Carbon Dioxide 14 mmol/L (22-30); Chloride 114 mmol/L (98-107); Glucose 65 mg/dL (74-99); Non-African American GFR(CKD) 19 (>60 ml/min/1.73 sqM); Potassium 5.8 mmol/L (3.5-5.1); Sodium 139 mmol/L (137-145); Total Bilirubin 0.3 mg/dL (0.2-1.3); Total Protein 7.1 g/dL (6.3-8.2)
[2023-04-05 08:52] LABS: Blood Urea Nitrogen 104 mg/dL (9-20)
--- NOTE | 2023-04-05 09:05 | CT ---
EXAMINATION TYPE: CT brain wo con CT DLP: 1063.4 mGycm, Automated exposure control for dose reduction was used. DATE OF EXAM: 04/05/2023 8:56 AM COMPARISON: 08/19/2016. CLINICAL INDICATION:Male, 82 years old with history of Altered mental status, Altered mental status TECHNIQUE: Brain: Axial CT images of the brain were obtained with coronal and sagittal reformats created and rev iewed. Contrast used: None. Oral contrast used: None. FINDINGS: Brain: Extra-axial spaces: No abnormal extra-axial fluid collections. Ventricular system: Dilatation in proportion to cerebral atrophy. Cerebral parenchyma: Cerebral atrophy. No acute intraparenchymal hemorrhage or mass effect. The rodríguez -white junction is well differentiated. Scattered hypoattenuating areas are seen within the white mat ter. Cerebellum: Unremarkable. Mass effect: No evidence of midline shift. Intracranial vasculature: unremarkable Soft tissues: Normal. Calvarium/osseous structures: No depressed skull fracture. Right medial orbital wall lamina Propecia injury. Paranasal sinuses and mastoid air cells: Mild scattered paranasal sinus disease. Visualized orbits: Orbital contents are intact. IMPRESSION: 1. No acute intracranial process. 2. Remote appearing right medial orbital wall lamina papyracea injury.
[2023-04-05 09:13] LABS: Magnesium 2.4 mg/dL (1.6-2.3); Phosphorus 5.9 mg/dL (2.5-4.5)
--- NOTE | 2023-04-05 09:17 | XR ---
EXAMINATION TYPE: XR chest 2V DATE OF EXAM: 04/05/2023 9:08 AM CLINICAL INDICATION:Male, 82 years old with history of altered mental status; [facility] COMPARISON: Chest radiographs from 08/19/2016. TECHNIQUE: XR chest 2V Frontal and lateral views of the chest. FINDINGS: Lungs/Pleura: There is no evidence of pleural effusion, focal consolidation, or pneumothorax. Pulmonary vascularity: Unremarkable. Heart/mediastinum: Cardiomediastinal silhouette is unremarkable. Musculoskeletal: No acute osseous pathology. Bilateral arm arthroplasty changes. Left AC joint fixati on screw present. Other findings: None IMPRESSION: No acute cardiopulmonary disease/process.
[2023-04-05] MEDS: cefTRIAXone IN SWFI 1,000 MG/10 ML SYRINGE IVP STA (09:34)
[2023-04-05] MEDS: SODIUM ZIRCONIUM CYCLOSILICATE 10 GM PACKET PO ONE (09:35)
[2023-04-05] MEDS: SODIUM CHLORIDE 0.9% 1,000 ML IV STA (09:36)
[2023-04-05 09:55] LABS: INR 0.9 (<1.2); Prothrombin Time 10.1 sec (10.0-12.5)
[2023-04-05 10:06] LABS: Glucose,Whole Blood 113 mg/dL (70-110)
[2023-04-05 10:06] LABS: Partial Thromboplastin Time 19.5 sec (22.0-30.0)
[2023-04-05] MEDS ORDERED: ONDANSETRON 4 MG/2 ML VIAL IVP PRN (10:18)
[2023-04-05] MEDS ORDERED: NALOXONE 0.4 MG/ML 1 ML VIAL IV PRN (10:18)
[2023-04-05] MEDS ORDERED: HYDROcodone/APAP 5-325MG 1 EACH TAB PO PRN (10:18)
[2023-04-05] MEDS ORDERED: ACETAMINOPHEN TAB 325 MG TAB PO PRN (10:18)
[2023-04-05] MEDS ORDERED: polyethylene glycoL 3350 17 GM POWD.PACK PO PRN (10:40)
--- NOTE | 2023-04-05 10:44 | P.HPIM ---
History of Present Illness H&P Date: 04/05/23 History of Presenting Illness: Patient is a pleasant 82-year-old male with a past medical history of hypertension, hyperlipidemia, [id number]-tdgysrhid diabetes mellitus, and BPH. He presented to the emergency department for increased generalized weakness and fatigue. Patient is currently alert and oriented x 4 and reports generalized weakness and fatigue over the past 1 to 2 weeks. He reports in addition he has been experiencing urinary frequency but reports only urinating a very small amount at a time resulting in his need to wear briefs. Patient also reports that at baseline he walks with a walker but has been using a wheelchair for the past week secondary to his weakness and fatigue. He denies experiencing any dizziness, lightheadedness, chest pain, palpitations, shortness of breath, back pain, abdominal pain or distention, nausea, vomiting, diarrhea, melena, hematochezia, hematuria, or experiencing any focal num bness/tingling/weakness/swelling in his extremities. Patient also denies experiencing any chills or diaphoresis and states he does not believe he has had any fevers. Patient underwent full evaluation in the emergency department. Vital signs upon arrival show blood pressure 101/52, heart rate 77, respiratory rate 18, temp 98.1 F, and SpO2 of 96% on room air. EKG was completed showing sinus bradycardia 59 bpm with a right bundle branch block noted PACs and T wave inversion in leads III, aVF, V2, and V3 upon personal review and interpretation. Chest x-ray negative for acute cardiopulmonary process. CT brain completed negative for acute intracranial process showing a remote appearing right medial orbital wall lamina papyracea injury. Labs completed and reviewed. CBC showing bicytopenia with hemoglobin of 8.4 and platelet count of 121 with baseline hemoglobin 9.4 and no history of thrombocytopenia. BMP showing hyperkalemia with potassium of 5.8, hyperchloremia with chloride of 114, hypocarbia with bicarb of 14, anion gap of 11, and acute kidney injury with BUN of 104, creatinine of 2.88, and GFR of 19 with hypoglycemia with glucose of 65. Liver profile unremarkable. Troponin negative at less than 0.012. Urinalysis positive for protein, blood, leukocytes, and infection with greater than 182 WBCs. Influenza A, influenza B, RSV, and COVID PCR were negative. Patient was given 1 amp of bicarb in the emergency department along with treatment for hyperkalemia. He was started on IV antibiotics with Rocephin and admitted under our services with consultation to nephrology and urology. Review of systems: Pertinent positives and negatives as discussed in HPI, a complete review of systems was performed and all other systems are negative. Physical exam: Vital signs reviewed and stable. General: Nontoxic, no distress and appears stated age. Obese Derm: Skin warm and dry, normal coloration for ethnicity. Head: Atraumatic, normocephalic and symmetric. Eyes: EOMs intact, no lid lag, and anicteric sclera Mouth: no lip lesions, mucus membranes moist Cardiovascular: regular rate and rhythm with normal S1S2, no murmur, positive posterior tibial pulses bilaterally, and cap refill < 2 seconds. Lungs: Respirations even, regular, and unlabored on room air. Lungs CTA bilaterally, no rhonchi, no rales, no wheezing, and no accessory muscle usage. Abdominal: Obese abdomen soft, nontender to palpation, no guarding, no appreciable organomegaly Ext: ROM intact. No gross muscle atrophy, no edema, no contractures. Venous stasis dermatitis to lower extremities. Neuro: Speech clear, face symmetrical and CN II-XII grossly intact with no noted focal neuro deficits Psych: Alert and oriented to person, place, time, and situation. Appropriate and pleasant affect. Assessment and Plan of Care: Acute kidney injury Hypoglycemia in type II diabetic Hyperkalemia Metabolic acidosis secondary to TAMI UTI Metabolic encephalopathy, likely secondary to above Urinary retention with history of BPH Bicytopenia with anemia and thrombocytopenia, likely secondary to renal function -Orders placed for bladder scan, patient found to have 992 mL of urinary retention from postvoid residual and Miranda catheter inserted at this time. -Consults placed to nephrology and urology. -Renal function showing BUN of 104, creatinine 2.88, GFR of 19 with baseline creatinine of 1.1. Will continue to monitor closely with repeat labs. -Hyperkalemia with potassium of 5.8. Patient was given hyperkalemia cocktail in the emergency department and time to repeat BMP ordered for 2 PM. -Metabolic acidosis with chloride 114, bicarb 14, and anion gap of 11. Patient received 1 amp of bicarb in the emergency department and repeat BMP to be co mpleted at 2 PM, may consider bicarb infusion if bicarb remains this low. -Order placed for STAT renal/bladder ultrasound -Telemetry monitoring. -Continuation of IV antibiotics with Rocephin 2 g daily. -Follow-up on urine culture and blood culture results. -Hold oral hypoglycemic medications and orders placed for blood glucose checks every 4 hours and pt placed on glycemic protocol with 25 mL or half an amp of D5 for blood glucose levels 50-70 and 50 mL or 1 amp of D5 for blood glucose levels less than 50. -Continue Flomax 0.8 mg daily and doxazosin 4 mg nightly. -Hold nephrotoxic medications including lisinopril and Lasix. -Fall precautions -Consult placed to Physical and Occupational Therapy. Hypertension -Lisinopril held secondary to TAMI, patient to continue with metoprolol 25 mg daily. Hyperlipidemia -Patient to continue atorvastatin 40 mg nightly. Data and imaging reviewed: As stated above in HPI. The patient is admitted with an anticipated greater than 2 midnight stay for evaluation of acute renal failure CODE STATUS: Full code DVT prophylaxis: Heparin Anticipated discharge date: Clinical course to determine Anticipated discharge place: Clinical course to determine Patient was seen independently by Nurse Practitioner. This document was prepared using [employer] dictation software. Please allow for errors in vp patient while rare they do occur. This patient was seen independently by my colleague Sabrina WESTBROOK. I agree with the assessment and plan. Past Medical History Past Medical History: Diabetes Mellitus, Hyperlipidemia, Hypertension History of Any Multi-Drug Resistant Organisms: None Reported Past Surgical History: Orthopedic Surgery Additional Past Surgical History / Comment(s): shoulder repracement, knee repl acement, hip replacement Past Psychological History: No Psychological Hx Reported Smoking Status: Never smoker Past Alcohol Use History: None Reported Past Drug Use History: None Reported Medications and Allergies Home Medications Medication Instructions Recorded Confirmed Type Atorvastatin [Lipitor] 40 mg PO HS 08/19/16 04/05/23 History Furosemide [Lasix] 40 mg PO DAILY 08/19/16 04/05/23 History Glimepiride [Amaryl] 4 mg PO BID 08/19/16 04/05/23 History Tamsulosin HCl [Flomax] 0.8 mg PO HS 08/19/16 04/05/23 History lisinopriL [Zestril] 20 mg PO DAILY 08/19/16 04/05/23 History metFORMIN HCL [Glucophage] 500 mg PO BID 08/19/16 04/05/23 History DULoxetine HCL [Cymbalta] 30 mg PO DAILY 01/04/23 04/05/23 History Metoprolol Tartrate 25 mg PO DAILY 01/04/23 04/05/23 History sitaGLIPtin [Januvia] 100 mg PO DAILY 01/04/23 04/05/23 History Aspirin EC [Ecotrin Low Dose] 81 mg PO DAILY 04/05/23 04/05/23 History Calcium Carbonate/Vitamin D3 1 tab PO DAILY 04/05/23 04/05/23 History [Calcium 500-Vit D3 400 Chew Tb] Doxazosin [Cardura] 4 mg PO HS 04/05/23 04/05/23 History Pioglitazone [Actos] 45 mg PO DAILY 04/05/23 04/05/23 History Allergies Allergy/AdvReac Type Severity Reaction Status Date / Time No Known Allergies Allergy Verified 04/05/23 12:01 Physical Exam Vitals: Vital Signs Temp Pulse Resp BP Pulse Ox 04/05/23 09:38 88 22 126/70 95 04/05/23 07:41 98.1 F 77 18 101/52 96 Intake and Output 04/04/23 04/05/23 04/05/23 22:59 06:59 14:59 Other: Weight 108.862 kg Results CBC & Chem 7: 04/06/23 05:23 04/06/23 05:23 Labs: Abnormal Lab Results - Last 24 Hours (Table) 04/05/23 04/05/23 04/05/23 Range/Units 07:51 07:51 07:51 RBC 2.82 L (4.30-5.90) m/uL Hgb 8.4 L (13.0-17.5) gm/dL Hct 26.5 L (39.0-53.0) % RDW 16.0 H (11.5-15.5) % Plt Count 121 L (150-450) k/uL Lymphocytes # 0.8 L (1.0-4.8) k/uL APTT (22.0-30.0) sec Potassium 5.8 H (3.5-5.1) mmol/L Chloride 114 H (98-107) mmol/L Carbon Dioxide 14 L (22-30) mmol/L BUN 104 H* (9-20) mg/dL Creatinine 2.88 H (0.66-1.25) mg/dL Glucose 65 L (74-99) mg/dL POC Glucose (mg/dL) (70-110) mg/dL Phosphorus (2.5-4.5) mg/dL Magnesium (1.6-2.3) mg/dL Albumin 3.4 L (3.5-5.0) g/dL Urine Protein Trace H (Negative) Urine Blood Trace H (Negative) Ur Leukocyte Esterase Large H (Negative) Urine WBC >182 H (0-5) /hpf Urine WBC Clumps Many H (None) /hpf Urine Bacteria Many H (None) /hpf Urine Mucus Rare H (None) /hpf 04/05/23 04/05/23 04/05/23 Range/Units 07:51 09:00 10:04 RBC (4.30-5.90) m/uL Hgb (13.0-17.5) gm/dL Hct (39.0-53.0) % RDW (11.5-15.5) % Plt Count (150-450) k/uL Lymphocytes # (1.0-4.8) k/uL APTT 19.5 L (22.0-30.0) sec Potassium (3.5-5.1) mmol/L Chloride (98-107) mmol/L Carbon Dioxide (22-30) mmol/L BUN (9-20) mg/dL Creatinine (0.66-1.25) mg/dL Glucose (74-99) mg/dL POC Glucose (mg/dL) 113 H (70-110) mg/dL Phosphorus 5.9 H (2.5-4.5) mg/dL Magnesium 2.4 H (1.6-2.3) mg/dL Albumin (3.5-5.0) g/dL Urine Protein (Negative) Urine Blood (Negative) Ur Leukocyte Esterase (Negative) Urine WBC (0-5) /hpf Urine WBC Clumps (None) /hpf Urine Bacteria (None) /hpf Urine Mucus (None) /hpf
--- NOTE | 2023-04-05 11:09 | US ---
EXAMINATION TYPE: US kidneys/renal and bladder DATE OF EXAM: 04/05/2023 COMPARISON: NONE CLINICAL INDICATION: Male, 82 years old with history of TAMI; Hx HTN, DM, and Urinary frequency x few weeks. EXAM MEASUREMENTS: Right Kidney: 11.2 x 6.4 x 6.2 cm Left Kidney: 12.5 x 6.6 x 6.5 cm Post Void Residual Volume: NAmL Right Kidney: wnl Left Kidney: Simple cyst = 4.5 x 3.5 x 4.1 cm Bladder: wnl Bilateral Jets seen: Yes Normal Post Void Residual: NA There is no evidence for hydronephrosis at this point in time. No nephrolithiasis is seen. No tobias s are identified. The urinary bladder is anechoic. Bilateral ureteral jets are seen. IMPRESSION: 1. No evidence for obstructive uropathy. 2. Left renal cyst.
[2023-04-05] MEDS: SODIUM CHLORIDE 0.9% 1,000 ML IV SCH (11:11)
[2023-04-05] MEDS: CALCIUM GLUCONATE IN NACL 1 GM in SALINE 1 100ML.BAG IVPB ONE (11:12)
[2023-04-05] MEDS: SODIUM BICARB 8.4% 50 ML SYR (1 MEQ/ML) IV ONE (11:45)
[2023-04-05] MEDS: TAMSULOSIN 0.4 MG CAP.ER.24H PO SCH (11:45)
[2023-04-05] MEDS ORDERED: DEXTROSE 50% SYRINGE 50 ML IVP PRN ×2 (13:36)
[2023-04-05] MEDS: DOXAZOSIN 4 MG TAB PO SCH (15:00)
[2023-04-05] MEDS: DEXTROSE 5% IN WATER 1,000 ML with SODIUM BICARB (1 MEQ/ML) 150 ML IV SCH (15:02)
[2023-04-05 16:33] LABS: Glucose,Whole Blood 73 mg/dL (70-110)
[2023-04-05 17:16] LABS: Glucose,Whole Blood 92 mg/dL (70-110)
[2023-04-05] MEDS: INSULIN ASPART (NovoLOG) 100 UNIT/ML VIAL SQ SCH (17:25)
[2023-04-05 18:08] LABS: African American GFR (CKD) 31 (>60 ml/min/1.73 sqM); Anion Gap 8 mmol/L; Blood Urea Nitrogen 88 mg/dL (9-20); Calcium 8.9 mg/dL (8.4-10.2); Carbon Dioxide 17 mmol/L (22-30); Chloride 114 mmol/L (98-107); Glucose 75 mg/dL (74-99); Non-African American GFR(CKD) 27 (>60 ml/min/1.73 sqM); Potassium 5.1 mmol/L (3.5-5.1); Sodium 139 mmol/L (137-145)
[2023-04-05 20:16] LABS: Glucose,Whole Blood 135 mg/dL (70-110)
[2023-04-05] MEDS: HEPARIN SODIUM,PORCINE 5,000 UNIT/ML 1 ML VIAL SQ SCH (20:50)
[2023-04-05] MEDS: ATORVASTATIN 40 MG TAB PO SCH (20:50)
[2023-04-06 04:52] LABS: Glucose,Whole Blood 163 mg/dL (70-110)
[2023-04-06 07:57] LABS: Glucose,Whole Blood 131 mg/dL (70-110)
[2023-04-06 08:47] LABS: HCT 24.8 % (39.6-50.0); HGB 7.7 g/dL (13.0-17.0); MCH 29.1 pg (27.0-32.0); MCV 93.6 FL (80.0-97.0); Mean Platelet Volume 9.8 FL (9.5-12.2); NRBC Per 100 WBC 0 X 10*3/uL (0.00-0.01); Platelet Count 178 X 10*3/uL (140-440); RBC 2.65 X 10*6/uL (4.40-5.60); RDW 16.6 % (11.5-14.5); WBC 5.02 X 10*3/uL (4.50-10.00)
[2023-04-06 08:51] LABS: ALT 13 U/L (10-49); AST 14 U/L (14-35); Albumin 3.1 g/dL (3.8-4.9); Albumin/Globulin Ratio 1.03 Ratio (1.60-3.17); Alkaline Phosphatase 44 U/L (41-126); BUN/Creat Ratio 38.41 Ratio (12.00-20.00); Blood Urea Nitrogen 65.3 mg/dL (9.0-27.0); Calcium 8.6 mg/dL (8.7-10.3); Carbon Dioxide 24.3 mmol/L (21.6-31.8); Chloride 109 mmol/L (96-109); Glucose 111 mg/dL (70-110); Magnesium 2.4 mg/dL (1.5-2.4); Potassium 4.6 mmol/L (3.5-5.5); Sodium 140 mmol/L (135-145); Total Bilirubin <0.2 mg/dL (0.3-1.2); Total Protein 6.1 g/dL (6.2-8.2)
[2023-04-06] MEDS: DULoxetine HCL 30 MG CAPSULE.DR PO SCH (09:51)
[2023-04-06] MEDS: METOPROLOL TARTRATE 25 MG TAB PO SCH (09:51)
[2023-04-06] MEDS: ASPIRIN 81 MG PO SCH (10:05)
[2023-04-06 12:00] LABS: Glucose,Whole Blood 211 mg/dL (70-110)
--- NOTE | 2023-04-06 16:04 | P.PN ---
Subjective Progress Note Date: 04/06/23 Hospital Course: 82-year-old male with history of hypertension, dyslipidemia, BPH, xdx-ggpkjyo-fqvtdxqal diabetes presenting with encephalopathy, increased generalized weakness and fatigue. On arrival, vital signs were within normal limits. EKG showed sinus bradycardia with known right bundle branch block, nonspecific ST-T wave changes. Chest x-ray was negative for any acute process. CT brain negative for any acute process. CBC showed hemoglobin of 8.4 slightly below his baseline, platelet 121, BMP showed potassium 5.8, bicarb of 14, anion gap 11, TAMI with a BUN of 104 and creatinine of 2.88, glucose 65. Troponin negative. Urinalysis positive for leukocyte esterase, greater than 182 WBCs. Respiratory viral panel negative. Was given 1 amp of bicarb in the ED for hyperkalemia. Also started on antibiotics. Nephrology and urology were consulted. Subjective: Patient seen and examined at bedside. No acute events overnight. Mental status now within normal limits. Pertinent positives and negatives as discussed above, a complete review of systems was performed and all other systems are negative. Vitals Signs Reviewed. General: Nontoxic, no distress, appears at stated age, obese Derm: Warm, dry, lower extremity venous stasis dermatitis Head: Atraumatic, normocephalic, symmetric Eyes: EOMI, no lid lag, anicteric sclera Mouth: No lip lesion, mucus membranes moist Cardiovascular: S1S2 reg, no murmur Lungs: CTA bilateral, no rhonchi, no rales, no accessory muscle use Abdominal: Soft, nontender to palpation, no guarding, no appreciable organomegaly Ext: No gross muscle atrophy, no edema, no contractures Neuro: CN II-XI grossly intact, no focal neuro deficits Psych: Alert, oriented, appropriate affect Data Reviewed Today: Pertinent Labs: Hemoglobin 7.7, platelet 178, creatinine 1.7, glucose 211. Imaging: Renal ultrasound shows no obstructive uropathy, left renal cyst. Assessment and Plan: Patient is severely ill, needs close monitoring. Acute metabolic encephalopathy, resolved Acute kidney injury, resolving Hypoglycemia Type 2 diabetes now with hyperglycemia Hyperkalemia, resolved urinary tract infection Acute urinary retention with history of BPH, now status post Miranda catheter placement Thrombocytopenia resolved Acute on chronic normocytic anemia, likely related to renal disease Hypertension -Acute kidney injury improving, continues to be on D5 water with sodium bicarb at 80 cc an hour Mental status improved Continue IV ceftriaxone 2 g every 24 hours. Urine cultures growing gram- negative bacilli Miranda catheter in place, continue Flomax 0.8 mg daily, hold doxazosin Holding LUIS inhibitor, and oral hypoglycemics, and Lasix Sliding scale insulin, monitor for hypoglycemia No active bleeding, continue to monitor CBC and BMP Nephrology and urology consulted, pending recommendations Chronic: Dyslipidemia Depression DVT ppx: Subcu heparin Code status: Full code Anticipated discharge place: Pending clinical course Anticipated discharge time: Pending clinical course Objective - Vital Signs Vital signs: Vital Signs Temp 98.5 F 04/06/23 11:38 Pulse 76 04/06/23 11:38 Resp 16 04/06/23 11:38 BP 103/56 04/06/23 11:38 Pulse Ox 97 04/06/23 11:38 FiO2 Intake & Output 04/05/23 04/06/23 04/06/23 18:59 06:59 18:59 Output Total 2600 1800 Balance -2600 -1800 Weight 108.862 kg Output: Urine 2600 1800 Uretheral (Miranda) 2600 Other: Voiding Method Indwelling Catheter Indwelling Catheter # Voids 3,000 # Bowel Movements 1 - Labs CBC & Chem 7: 04/06/23 05:23 04/06/23 05:23 Labs: Abnormal Lab Results - Last 24 Hours (Table) 04/05/23 04/05/23 04/05/23 Range/Units 16:17 17:11 20:14 RBC (4.40-5.60) X 10*6/uL Hgb (13.0-17.0) g/dL Hct (39.6-50.0) % MCHC (32.0-37.0) g/dL RDW (11.5-14.5) % Chloride 114 H (98-107) mmol/L Carbon Dioxide 17 L (22-30) mmol/L BUN 88 H (9-20) mg/dL Creatinine 2.18 H (0.66-1.25) mg/dL Est GFR (CKD-EPI) (>=60) BUN/Creatinine Ratio (12.00-20.00) Ratio Glucose (70-110) mg/dL POC Glucose (mg/dL) 135 H (70-110) mg/dL Hemoglobin A1c 6.8 H (<=6.0) % Calcium (8.7-10.3) mg/dL Total Bilirubin (0.3-1.2) mg/dL Total Protein (6.2-8.2) g/dL Albumin (3.8-4.9) g/dL Albumin/Globulin Ratio (1.60-3.17) Ratio 04/06/23 04/06/23 04/06/23 Range/Units 04:48 05:23 05:23 RBC 2.65 L (4.40-5.60) X 10*6/uL Hgb 7.7 L (13.0-17.0) g/dL Hct 24.8 L (39.6-50.0) % MCHC 31.0 L (32.0-37.0) g/dL RDW 16.6 H (11.5-14.5) % Chloride (98-107) mmol/L Carbon Dioxide (22-30) mmol/L BUN 65.3 H (9-20) mg/dL Creatinine 1.7 H (0.66-1.25) mg/dL Est GFR (CKD-EPI) 40 L (>=60) BUN/Creatinine Ratio 38.41 H (12.00-20.00) Ratio Glucose 111 H (70-110) mg/dL POC Glucose (mg/dL) 163 H (70-110) mg/dL Hemoglobin A1c (<=6.0) % Calcium 8.6 L (8.7-10.3) mg/dL Total Bilirubin <0.2 L (0.3-1.2) mg/dL Total Protein 6.1 L (6.2-8.2) g/dL Albumin 3.1 L (3.8-4.9) g/dL Albumin/Globulin Ratio 1.03 L (1.60-3.17) Ratio 04/06/23 04/06/23 Range/Units 07:55 11:40 RBC (4.40-5.60) X 10*6/uL Hgb (13.0-17.0) g/dL Hct (39.6-50.0) % MCHC (32.0-37.0) g/dL RDW (11.5-14.5) % Chloride (98-107) mmol/L Carbon Dioxide (22-30) mmol/L BUN (9-20) mg/dL Creatinine (0.66-1.25) mg/dL Est GFR (CKD-EPI) (>=60) BUN/Creatinine Ratio (12.00-20.00) Ratio Glucose (70-110) mg/dL POC Glucose (mg/dL) 131 H 211 H (70-110) mg/dL Hemoglobin A1c (<=6.0) % Calcium (8.7-10.3) mg/dL Total Bilirubin (0.3-1.2) mg/dL Total Protein (6.2-8.2) g/dL Albumin (3.8-4.9) g/dL Albumin/Globulin Ratio (1.60-3.17) Ratio Microbiology - Last 24 Hours (Table) 04/05/23 11:34 Urine Culture - Preliminary Urine,Clean Catch Gram Neg Bacilli
[2023-04-06 17:03] LABS: Glucose,Whole Blood 298 mg/dL (70-110)
--- NOTE | 2023-04-06 18:01 | P.NPCON ---
History of Present Illness - Reason for Consult acute renal failure - History of Present Illness Patient is an 82-year-old male with history of diabetes, hypertension. Patient is admitted to the hospital with increased weakness. He has been complaining of difficulty in passing urine. No previous history of kidney diseases. Serum creatinine was elevated at 2.8 and decreased to 2.1. Patient was noted to have urine retention and a Miranda catheter has been placed. Patient states she is feeling better. Currently maintained on IV bicarb. Blood pressure was low with systolic around 100 to 101 mmHg. Patient is maintained on LUIS inhibitor's and diuretics prior to admission. Review of Systems As per HPI Past Medical History Past Medical History: Diabetes Mellitus, Hyperlipidemia, Hypertension History of Any Multi-Drug Resistant Organisms: None Reported Past Surgical History: Orthopedic Surgery Additional Past Surgical History / Comment(s): shoulder repracement, knee replacement, hip replacement Past Psychological History: No Psychological Hx Reported Smoking Status: Never smoker Past Alcohol Use History: None Reported Past Drug Use History: None Reported Medications and Allergies Home Medications Medication Instructions Recorded Confirmed Type Atorvastatin [Lipitor] 40 mg PO HS 08/19/16 04/05/23 History Furosemide [Lasix] 40 mg PO DAILY 08/19/16 04/05/23 History Glimepiride [Amaryl] 4 mg PO BID 08/19/16 04/05/23 History Tamsulosin HCl [Flomax] 0.8 mg PO HS 08/19/16 04/05/23 History lisinopriL [Zestril] 20 mg PO DAILY 08/19/16 04/05/23 History metFORMIN HCL [Glucophage] 500 mg PO BID 08/19/16 04/05/23 History DULoxetine HCL [Cymbalta] 30 mg PO DAILY 01/04/23 04/05/23 History Metoprolol Tartrate 25 mg PO DAILY 01/04/23 04/05/23 History sitaGLIPtin [Januvia] 100 mg PO DAILY 01/04/23 04/05/23 History Aspirin EC [Ecotrin Low Dose] 81 mg PO DAILY 04/05/23 04/05/23 History Calcium Carbonate/Vitamin D3 1 tab PO DAILY 04/05/23 04/05/23 History [Calcium 500-Vit D3 400 Chew Tb] Doxazosin [Cardura] 4 mg PO HS 04/05/23 04/05/23 History Pioglitazone [Actos] 45 mg PO DAILY 04/05/23 04/05/23 History Allergies Allergy/AdvReac Type Severity Reaction Status Date / Time No Known Allergies Allergy Verified 04/05/23 12:01 Physical Exam Vitals: Vital Signs Temp Pulse Resp BP Pulse Ox 04/06/23 11:38 98.5 F 76 16 103/56 97 04/06/23 08:14 98.4 F 110 H 16 111/68 96 04/06/23 02:00 98 F 113 H 16 121/56 91 L 04/05/23 19:50 97.8 F 98 16 125/62 97 Intake and Output 04/06/23 04/06/23 04/06/23 06:59 14:59 22:59 Output Total 800 1000 Balance -800 -1000 Output: Urine 800 1000 Other: Voiding Method Indwelling Catheter # Voids 3,000 # Bowel Movements 1 Patient is awake, comfortable, no acute distress Examination of the heart S1 and S2 Examination of the lungs decreased breath sounds at the bases Abdomen is soft nontender Examination of lower extremities shows trace edema bilaterally 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 Acute kidney injury, ATN and urine retention, currently improving. Status post Miranda catheter placement. Ultrasound did not show hydronephrosis. UA shows trace protein and significant pyuria. 2. Urinary tract infection with urine culture growing gram-negative bacilli 3. [place] metabolic acidosis secondary to acute kidney injury, maintained on IV bicarb 4. Urine retention status post Miranda catheter placement 5. Hyperkalemia associated with acute kidney injury and use of LUIS inhibitor's as well as urine retention Plan: Can DC bicarb drip Switch to Ringer lactate Continue with Miranda catheter Repeat labs in a.m. Continue to hold LUIS inhibitors for now as blood pressure remains on the lower side Continue antibiotics for UTI Thank you for the consultation. We will continue to follow the patient with you during his hospitalization.
[2023-04-06] MEDS: LACTATED RINGERS 1,000 ML IV SCH (18:38)
[2023-04-06 20:24] LABS: Glucose,Whole Blood 229 mg/dL (70-110)
[2023-04-07 07:13] LABS: Glucose,Whole Blood 153 mg/dL (70-110)
--- NOTE | 2023-04-07 08:31 | P.GSCN ---
History of Present Illness Consult date: 04/07/23 Reason for Consult: Urinary Retention Requesting physician: Yan Bennett History of present illness: The patient is an 82-year-old white male who presented to the ER with complaints of dyspnea and generalized weakness. He also reported difficulty voiding. Bladder scan showed a postvoid residual of 992 cc, so a Miranda catheter was placed. Renal ultrasound showed a 4.5 cm left simple renal cyst, but was otherwise unremarkable. The patient is known to Dr. Smith and was last seen by him in November 2020. He was being followed for an elevated PSA level. His PSA level in November 2019 was 7.3. In December 2019, his postvoid residual was 134 cc. Digital rectal examination at that time revealed a left-sided prostate nodule. The patient states that he has had a feeling of incomplete bladder emptying for months. He believes that Dr. Correa is monitoring his PSA level, and that it has increased. Review of Systems - Constitutional Reports fatigue, Reports weakness - Cardiovascular Reports high blood pressure - Respiratory Reports dyspnea - Genitourinary Reports as per HPI Past Medical History Past Medical History: Diabetes Mellitus, Hyperlipidemia, Hypertension History of Any Multi-Drug Resistant Organisms: None Reported Past Surgical History: Orthopedic Surgery Additional Past Surgical History / Comment(s): shoulder replacement, knee replacement, hip replacement, finger anputation Past Psychological History: No Psychological Hx Reported Smoking Status: Never smoker Past Alcohol Use History: None Reported Past Drug Use History: None Reported Medications and Allergies Home Medications Medication Instructions Recorded Confirmed Type Atorvastatin [Lipitor] 40 mg PO HS 08/19/16 04/05/23 History Furosemide [Lasix] 40 mg PO DAILY 08/19/16 04/05/23 History Glimepiride [Amaryl] 4 mg PO BID 08/19/16 04/05/23 History Tamsulosin HCl [Flomax] 0.8 mg PO HS 08/19/16 04/05/23 History lisinopriL [Zestril] 20 mg PO DAILY 08/19/16 04/05/23 History metFORMIN HCL [Glucophage] 500 mg PO BID 08/19/16 04/05/23 History DULoxetine HCL [Cymbalta] 30 mg PO DAILY 01/04/23 04/05/23 History Metoprolol Tartrate 25 mg PO DAILY 01/04/23 04/05/23 History sitaGLIPtin [Januvia] 100 mg PO DAILY 01/04/23 04/05/23 History Aspirin EC [Ecotrin Low Dose] 81 mg PO DAILY 04/05/23 04/05/23 History Calcium Carbonate/Vitamin D3 1 tab PO DAILY 04/05/23 04/05/23 History [Calcium 500-Vit D3 400 Chew Tb] Doxazosin [Cardura] 4 mg PO HS 04/05/23 04/05/23 History Pioglitazone [Actos] 45 mg PO DAILY 04/05/23 04/05/23 History Allergies Allergy/AdvReac Type Severity Reaction Status Date / Time No Known Allergies Allergy Verified 04/05/23 12:01 Surgical - Exam Vital Signs Temp Pulse Resp BP Pulse Ox 98.1 F 77 18 101/52 96 04/05/23 07:41 04/05/23 07:41 04/05/23 07:41 04/05/23 07:41 04/05/23 07:41 - General well developed, well nourished, no distress - Respiratory normal respiratory effort - Abdomen Abdomen: soft, non tender, no guarding, no rigid, no rebound - Genitourinary normal penis with no external lesions, testicles non-tender - Rectum Rectum: normal sphincter tone, no masses, other (Prostate mildly enlarged with left mid apical firmness) - Psychiatric oriented to time, oriented to person, oriented to place, speech is normal, memory intact Results - Labs 04/06/23 05:23 04/06/23 05:23 Abnormal Lab Results - Last 24 Hours (Table) 04/05/23 04/05/23 04/05/23 Range/Units 07:51 07:51 07:51 RBC 2.82 L (4.30-5.90) m/uL Hgb 8.4 L (13.0-17.5) gm/dL Hct 26.5 L (39.0-53.0) % RDW 16.0 H (11.5-15.5) % Plt Count 121 L (150-450) k/uL Lymphocytes # 0.8 L (1.0-4.8) k/uL APTT (22.0-30.0) sec Potassium 5.8 H (3.5-5.1) mmol/L Chloride 114 H (98-107) mmol/L Carbon Dioxide 14 L (22-30) mmol/L BUN 104 H* (9-20) mg/dL Creatinine 2.88 H (0.66-1.25) mg/dL Glucose 65 L (74-99) mg/dL POC Glucose (mg/dL) (70-110) mg/dL Hemoglobin A1c (<=6.0) % Phosphorus (2.5-4.5) mg/dL Magnesium (1.6-2.3) mg/dL Albumin 3.4 L (3.5-5.0) g/dL Urine Protein Trace H (Negative) Urine Blood Trace H (Negative) Ur Leukocyte Esterase Large H (Negative) Urine WBC >182 H (0-5) /hpf Urine WBC Clumps Many H (None) /hpf Urine Bacteria Many H (None) /hpf Urine Mucus Rare H (None) /hpf 04/05/23 04/05/23 04/05/23 Range/Units 07:51 09:00 10:04 RBC (4.30-5.90) m/uL Hgb (13.0-17.5) gm/dL Hct (39.0-53.0) % RDW (11.5-15.5) % Plt Count (150-450) k/uL Lymphocytes # (1.0-4.8) k/uL APTT 19.5 L (22.0-30.0) sec Potassium (3.5-5.1) mmol/L Chloride (98-107) mmol/L Carbon Dioxide (22-30) mmol/L BUN (9-20) mg/dL Creatinine (0.66-1.25) mg/dL Glucose (74-99) mg/dL POC Glucose (mg/dL) 113 H (70-110) mg/dL Hemoglobin A1c (<=6.0) % Phosphorus 5.9 H (2.5-4.5) mg/dL Magnesium 2.4 H (1.6-2.3) mg/dL Albumin (3.5-5.0) g/dL Urine Protein (Negative) Urine Blood (Negative) Ur Leukocyte Esterase (Negative) Urine WBC (0-5) /hpf Urine WBC Clumps (None) /hpf Urine Bacteria (None) /hpf Urine Mucus (None) /hpf 04/05/23 04/05/23 04/05/23 Range/Units 16:17 17:11 20:14 RBC (4.30-5.90) m/uL Hgb (13.0-17.5) gm/dL Hct (39.0-53.0) % RDW (11.5-15.5) % Plt Count (150-450) k/uL Lymphocytes # (1.0-4.8) k/uL APTT (22.0-30.0) sec Potassium (3.5-5.1) mmol/L Chloride 114 H (98-107) mmol/L Carbon Dioxide 17 L (22-30) mmol/L BUN 88 H (9-20) mg/dL Creatinine 2.18 H (0.66-1.25) mg/dL Glucose (74-99) mg/dL POC Glucose (mg/dL) 135 H (70-110) mg/dL Hemoglobin A1c 6.8 H (<=6.0) % Phosphorus (2.5-4.5) mg/dL Magnesium (1.6-2.3) mg/dL Albumin (3.5-5.0) g/dL Urine Protein (Negative) Urine Blood (Negative) Ur Leukocyte Esterase (Negative) Urine WBC (0-5) /hpf Urine WBC Clumps (None) /hpf Urine Bacteria (None) /hpf Urine Mucus (None) /hpf 04/06/23 Range/Units 04:48 RBC (4.30-5.90) m/uL Hgb (13.0-17.5) gm/dL Hct (39.0-53.0) % RDW (11.5-15.5) % Plt Count (150-450) k/uL Lymphocytes # (1.0-4.8) k/uL APTT (22.0-30.0) sec Potassium (3.5-5.1) mmol/L Chloride (98-107) mmol/L Carbon Dioxide (22-30) mmol/L BUN (9-20) mg/dL Creatinine (0.66-1.25) mg/dL Glucose (74-99) mg/dL POC Glucose (mg/dL) 163 H (70-110) mg/dL Hemoglobin A1c (<=6.0) % Phosphorus (2.5-4.5) mg/dL Magnesium (1.6-2.3) mg/dL Albumin (3.5-5.0) g/dL Urine Protein (Negative) Urine Blood (Negative) Ur Leukocyte Esterase (Negative) Urine WBC (0-5) /hpf Urine WBC Clumps (None) /hpf Urine Bacteria (None) /hpf Urine Mucus (None) /hpf Diabetes panel 04/05/23 04/05/23 04/05/23 Range/Units 07:51 16:17 17:11 Sodium 139 139 (137-145) mmol/L Potassium 5.8 H 5.1 (3.5-5.1) mmol/L Chloride 114 H 114 H (98-107) mmol/L Carbon Dioxide 14 L 17 L (22-30) mmol/L BUN 104 H* 88 H (9-20) mg/dL Creatinine 2.88 H 2.18 H (0.66-1.25) mg/dL Glucose 65 L 75 (74-99) mg/dL Hemoglobin A1c 6.8 H (<=6.0) % Calcium 9.4 8.9 (8.4-10.2) mg/dL AST 22 (17-59) U/L ALT 15 (4-49) U/L Alkaline Phosphatase 66 (38-126) U/L Total Protein 7.1 (6.3-8.2) g/dL Albumin 3.4 L (3.5-5.0) g/dL Calcium panel 04/05/23 04/05/23 04/05/23 Range/Units 07:51 07:51 17:11 Calcium 9.4 8.9 (8.4-10.2) mg/dL Phosphorus 5.9 H (2.5-4.5) mg/dL Albumin 3.4 L (3.5-5.0) g/dL Pituitary panel 04/05/23 04/05/23 Range/Units 07:51 17:11 Sodium 139 139 (137-145) mmol/L Potassium 5.8 H 5.1 (3.5-5.1) mmol/L Chloride 114 H 114 H (98-107) mmol/L Carbon Dioxide 14 L 17 L (22-30) mmol/L BUN 104 H* 88 H (9-20) mg/dL Creatinine 2.88 H 2.18 H (0.66-1.25) mg/dL Glucose 65 L 75 (74-99) mg/dL Calcium 9.4 8.9 (8.4-10.2) mg/dL Adrenal panel 04/05/23 04/05/23 Range/Units 07:51 17:11 Sodium 139 139 (137-145) mmol/L Potassium 5.8 H 5.1 (3.5-5.1) mmol/L Chloride 114 H 114 H (98-107) mmol/L Carbon Dioxide 14 L 17 L (22-30) mmol/L BUN 104 H* 88 H (9-20) mg/dL Creatinine 2.88 H 2.18 H (0.66-1.25) mg/dL Glucose 65 L 75 (74-99) mg/dL Calcium 9.4 8.9 (8.4-10.2) mg/dL Total Bilirubin 0.3 (0.2-1.3) mg/dL AST 22 (17-59) U/L ALT 15 (4-49) U/L Alkaline Phosphatase 66 (38-126) U/L Total Protein 7.1 (6.3-8.2) g/dL Albumin 3.4 L (3.5-5.0) g/dL - Imaging US - kidney/bladder: report reviewed Assessment and Plan (1) Retention of urine, unspecified Current Visit: Yes Status: Acute Code(s): R33.9 - RETENTION OF URINE, UNSPECIFIED SNOMED Code(s): 563044923 (2) Elevated prostate specific antigen [PSA] Current Visit: Yes Status: Acute Code(s): R97.20 - ELEVATED PROSTATE SPECIFIC ANTIGEN [PSA] SNOMED Code(s): 062407426 Plan: Based upon the patient's history, it appears that his urinary retention may be subacute or chronic. In view of this, I have recommended that he go home with the Miranda catheter. Arrangements will be made for him to undergo urodynamic testing and cystoscopy in the office for further evaluation. We will also obtain PSA records from Dr. Correa's office. Please notify me if we can be of any further assistance during this hospitalization. Time with Patient: Greater than 30
[2023-04-07 10:58] LABS: Basophils # (A) 0.02 X 10*3/uL (0.00-0.10); Basophils % (A) 0.4 %; Eosinophils # (A) 0.17 X 10*3/uL (0.04-0.35); HCT 25.2 % (39.6-50.0); HGB 7.9 g/dL (13.0-17.0); MCH 29.3 pg (27.0-32.0); MCHC 31.3 g/dL (32.0-37.0); MCV 93.3 FL (80.0-97.0); Mean Platelet Volume 10.1 FL (9.5-12.2); Monocytes # (A) 0.87 X 10*3/uL (0.20-1.00); Monocytes % (A) 15.2 %; NRBC Per 100 WBC 0 X 10*3/uL (0.00-0.01); Neutrophils # (A) 3.01 X 10*3/uL (1.80-7.70); Neutrophils % (A) 52.7 %; Platelet Count 174 X 10*3/uL (140-440); RDW 16.4 % (11.5-14.5); WBC 5.71 X 10*3/uL (4.50-10.00)
--- NOTE | 2023-04-07 11:11 | P.PN ---
Subjective Progress Note Date: 04/07/23 Hospital Course: 82-year-old male with history of hypertension, dyslipidemia, BPH, [id number] diabetes presenting with encephalopathy, increased generalized weakness and fatigue. On arrival, vital signs were within normal limits. EKG showed sinus bradycardia with known right bundle branch block, nonspecific ST-T wave changes. Chest x-ray was negative for any acute process. CT brain negative for any acute process. CBC showed hemoglobin of 8.4 slightly below his baseline, platelet 121, BMP showed potassium 5.8, bicarb of 14, anion gap 11, TAMI with a BUN of 104 and creatinine of 2.88, glucose 65. Troponin negative. Urinalysis positive for leukocyte esterase, greater than 182 WBCs. Respiratory viral panel negative. Was given 1 amp of bicarb in the ED for hyperkalemia. Also started on antibiotics. Nephrology and urology were consulted. Patient was initially on bicarb drip, now switched to lactated Ringer's. Urology recommending to go home with Miarnda catheter, further urod ynamic testing and cystoscopy in the office. Subjective: Patient seen and examined at bedside. No acute events overnight. Mental status now within normal limits. Pertinent positives and negatives as discussed above, a complete review of systems was performed and all other systems are negative. Vitals Signs Reviewed. General: Nontoxic, no distress, appears at stated age, obese Derm: Warm, dry, lower extremity venous stasis dermatitis Head: Atraumatic, normocephalic, symmetric Eyes: EOMI, no lid lag, anicteric sclera Mouth: No lip lesion, mucus membranes moist Cardiovascular: S1S2 reg, no murmur Lungs: CTA bilateral, no rhonchi, no rales, no accessory muscle use Abdominal: Soft, nontender to palpation, no guarding, no appreciable organomegaly Ext: No gross muscle atrophy, no edema, no contractures Neuro: CN II-XI grossly intact, no focal neuro deficits Psych: Alert, oriented, appropriate affect Data Reviewed Today: Pertinent Labs: Hemoglobin 7.9, platelet 174, blood sugars range between 1 53-2 29, BMP pending, will be reviewed when available Imaging: No new imaging Assessment and Plan: Acute kidney injury, resolving Hypoglycemia, resolved Acute metabolic encephalopathy, resolved Type 2 diabetes now with hyperglycemia Hyperkalemia, resolved Urinary tract infection Acute urinary retention with history of BPH, now status post Miranda catheter placement Thrombocytopenia resolved Acute on chronic normocytic anemia, likely related to renal disease Hypertension -Acute kidney injury improving, patient currently on lactated Ringer 75 cc an hour -Nephrology following Mental status improved Continue IV ceftriaxone 2 g every 24 hours. Urine cultures growing gram-nega tive bacilli Holding LUIS inhibitor, and oral hypoglycemics, and Lasix Sliding scale insulin, monitor for hypoglycemia No active bleeding, continue to monitor CBC and BMP Urology recommending outpatient follow-up, patient to go home with Miranda catheter Miranda catheter in place, continue Flomax 0.8 mg daily, hold doxazosin Chronic: Dyslipidemia Depression DVT ppx: Subcu heparin Code status: Full code Anticipated discharge place: Pending clinical course Anticipated discharge time: Pending clinical course Objective - Vital Signs Vital signs: Vital Signs Temp 98 F 04/07/23 07:54 Pulse 84 04/07/23 07:54 Resp 13 04/07/23 07:54 BP 127/76 04/07/23 07:54 Pulse Ox 99 04/07/23 07:54 FiO2 Intake & Output 04/06/23 04/07/23 04/07/23 18:59 06:59 18:59 Output Total 2100 2600 800 Balance -2100 -2600 -800 Output: Urine 2100 2600 800 Other: Voiding Method Indwelling Catheter Indwelling Catheter Indwelling Catheter # Bowel Movements 1 - Labs CBC & Chem 7: 04/07/23 06:56 04/06/23 05:23 Labs: Abnormal Lab Results - Last 24 Hours (Table) 04/06/23 04/06/23 04/06/23 Range/Units 11:40 17:01 20:22 RBC (4.40-5.60) X 10*6/uL Hgb (13.0-17.0) g/dL Hct (39.6-50.0) % MCHC (32.0-37.0) g/dL RDW (11.5-14.5) % POC Glucose (mg/dL) 211 H 298 H 229 H (70-110) mg/dL 04/07/23 04/07/23 Range/Units 06:56 07:11 RBC 2.70 L (4.40-5.60) X 10*6/uL Hgb 7.9 L (13.0-17.0) g/dL Hct 25.2 L (39.6-50.0) % MCHC 31.3 L (32.0-37.0) g/dL RDW 16.4 H (11.5-14.5) % POC Glucose (mg/dL) 153 H (70-110) mg/dL Microbiology - Last 24 Hours (Table) 04/05/23 09:24 Blood Culture - Preliminary Blood 04/05/23 09:09 Blood Culture - Preliminary Blood 04/05/23 11:34 Urine Culture - Preliminary Urine,Clean Catch Gram Neg Bacilli
[2023-04-07 11:15] LABS: BUN/Creat Ratio 35.08 Ratio (12.00-20.00); Blood Urea Nitrogen 45.6 mg/dL (9.0-27.0); Calcium 8.7 mg/dL (8.7-10.3); Carbon Dioxide 25.8 mmol/L (21.6-31.8); Chloride 103 mmol/L (96-109); Glucose 148 mg/dL (70-110); Potassium 4.5 mmol/L (3.5-5.5); Sodium 137 mmol/L (135-145)
[2023-04-07 12:09] LABS: Glucose,Whole Blood 265 mg/dL (70-110)
[2023-04-07 17:31] LABS: Glucose,Whole Blood 163 mg/dL (70-110)
--- NOTE | 2023-04-07 17:49 | P.PN ---
Subjective Patient is seen for follow-up for acute kidney injury. Noted to have significant urine retention and currently with indwelling Miranda catheter. Renal function has improved significantly. Currently maintained on IV fluids. No significant complaints today. Objective - Vital Signs Vital signs: Vital Signs Temp 98.1 F 04/07/23 11:35 Pulse 104 H 04/07/23 11:35 Resp 12 04/07/23 11:35 BP 109/66 04/07/23 11:35 Pulse Ox 95 04/07/23 11:35 FiO2 Intake & Output 04/06/23 04/07/23 04/07/23 18:59 06:59 18:59 Output Total 2100 2600 1700 Balance -2100 -2600 -1700 Output: Urine 2100 2600 1700 Other: Voiding Method Indwelling Catheter Indwelling Catheter Indwelling Catheter # Bowel Movements 1 - Exam Patient is comfortable awake, no acute distress Examination of the heart S1 and S2 Examination of the lungs bilateral breath sounds are heard with decreased breath sounds at the bases Abdomen is soft nontender Examination of lower extremities shows edema 1+ bilaterally with chronic skin changes [employer] exam grossly intact - Labs CBC & Chem 7: 04/07/23 06:56 04/07/23 06:56 Labs: Abnormal Lab Results - Last 24 Hours (Table) 04/06/23 04/07/23 04/07/23 Range/Units 20:22 06:56 06:56 RBC 2.70 L (4.40-5.60) X 10*6/uL Hgb 7.9 L (13.0-17.0) g/dL Hct 25.2 L (39.6-50.0) % MCHC 31.3 L (32.0-37.0) g/dL RDW 16.4 H (11.5-14.5) % BUN 45.6 H (9.0-27.0) mg/dL Est GFR (CKD-EPI) 55 L (>=60) BUN/Creatinine Ratio 35.08 H (12.00-20.00) Ratio Glucose 148 H (70-110) mg/dL POC Glucose (mg/dL) 229 H (70-110) mg/dL 04/07/23 04/07/23 04/07/23 Range/Units 07:11 11:36 17:30 RBC (4.40-5.60) X 10*6/uL Hgb (13.0-17.0) g/dL Hct (39.6-50.0) % MCHC (32.0-37.0) g/dL RDW (11.5-14.5) % BUN (9.0-27.0) mg/dL Est GFR (CKD-EPI) (>=60) BUN/Creatinine Ratio (12.00-20.00) Ratio Glucose (70-110) mg/dL POC Glucose (mg/dL) 153 H 265 H 163 H (70-110) mg/dL Microbiology - Last 24 Hours (Table) 04/05/23 09:24 Blood Culture - Preliminary Blood 04/05/23 09:09 Blood Culture - Preliminary Blood 04/05/23 11:34 Urine Culture - Final Urine,Clean Catch Escherichia coli Assessment and Plan Assessment: 1. Acute kidney injury, ATN and urine retention, currently improving. Status post Miranda catheter placement. Ultrasound did not show hydronephrosis. UA shows trace protein and significant pyuria. 2. Urinary tract infection with urine culture growing E. coli 3. Nongap metabolic acidosis secondary to acute kidney injury, status post IV bicarb 4. Urine retention status post Miranda catheter placement 5. Hyperkalemia associated with acute kidney injury and use of LUIS inhibitor's as well as urine retention Plan: DC IV fluids Continue with Miranda catheter Continue antibiotics Continue with Flomax. Patient can likely be discharged tomorrow if he remains stable.
[2023-04-07 20:04] LABS: Glucose,Whole Blood 138 mg/dL (70-110)
[2023-04-08] MEDS: NYSTATIN 100,000 UNIT/GM POWD 15 GM TOPICAL SCH (00:35)
[2023-04-08 07:24] LABS: Glucose,Whole Blood 133 mg/dL (70-110)
[2023-04-08 08:25] VITALS: BP 140/68; PULSE 84; RESP 16; TEMP 98.8
[2023-04-08 10:47] LABS: Basophils # (A) 0.02 X 10*3/uL (0.00-0.10); Basophils % (A) 0.4 %; Eosinophils # (A) 0.18 X 10*3/uL (0.04-0.35); Eosinophils % (A) 3.4 %; HCT 25.1 % (39.6-50.0); HGB 7.8 g/dL (13.0-17.0); Lymphocytes # (A) 1.45 X 10*3/uL (0.90-5.00); Lymphocytes % (A) 27.1 %; MCH 28.8 pg (27.0-32.0); MCHC 31.1 g/dL (32.0-37.0); MCV 92.6 FL (80.0-97.0); Mean Platelet Volume 9.6 FL (9.5-12.2); Monocytes # (A) 0.74 X 10*3/uL (0.20-1.00); Monocytes % (A) 13.8 %; NRBC Per 100 WBC 0 X 10*3/uL (0.00-0.01); Neutrophils # (A) 2.93 X 10*3/uL (1.80-7.70); Neutrophils % (A) 54.7 %; Platelet Count 173 X 10*3/uL (140-440); RBC 2.71 X 10*6/uL (4.40-5.60); RDW 16.4 % (11.5-14.5); WBC 5.35 X 10*3/uL (4.50-10.00)
[2023-04-08 11:01] LABS: BUN/Creat Ratio 32.17 Ratio (12.00-20.00); Blood Urea Nitrogen 38.6 mg/dL (9.0-27.0); Calcium 8.5 mg/dL (8.7-10.3); Carbon Dioxide 26.7 mmol/L (21.6-31.8); Chloride 105 mmol/L (96-109); Glucose 131 mg/dL (70-110); Potassium 4.6 mmol/L (3.5-5.5); Sodium 139 mmol/L (135-145)
[2023-04-08] MEDS ORDERED: FUROSEMIDE 40 MG TAB PO SCH (12:00)
--- NOTE | 2023-04-08 16:46 | P.PN ---
Subjective Progress Note Date: 04/08/23 Acute kidney injury, resolving Hypoglycemia, resolved Acute metabolic encephalopathy, resolved Type 2 diabetes now with hyperglycemia Hyperkalemia, resolved Urinary tract infection Acute urinary retention with history of BPH, now status post Miranda catheter placement Thrombocytopenia resolved Acute on chronic normocytic anemia, likely related to renal disease Hypertension Dyslipidemia Depression Hospital Course: 82-year-old male with history of hypertension, dyslipidemia, BPH, [id number] diabetes presenting with encephalopathy, increased generalized weakness and fatigue. On arrival, vital signs were within normal limits. EKG showed sinus bradycardia with known right bundle branch block, nonspecific ST-T wave changes. Chest x-ray was negative for any acute process. CT brain negative for any acute process. CBC showed hemoglobin of 8.4 slightly below his baseline, platelet 121, BMP showed potassium 5.8, bicarb of 14, anion gap 11, TAMI with a BUN of 104 and creatinine of 2.88, glucose 65. Troponin negative. Urinalysis positive for leukocyte esterase, greater than 182 WBCs. Respiratory viral panel negative. Was given 1 amp of bicarb in the ED for hyperkalemia. Also started on antibiotics. Nephrology and urology were consulted. Patient was initially on bicarb drip, now switched to lactated Ringer's. Urology recommending to go home with Miranda catheter, further uro dynamic testing and cystoscopy in the office. Pts kidney function improved back to Cr of 1.3. He was instructed to complete course of abx of cefdinir of total 7 days inclusive of time receiving abx in the hospital. Pt will continue his lisinopril and lasix now that Cr has improved. He will f/u with nephrology and urology. I spent 40 minutes coordinating this discharge on 04/08 Gen: In NAD, non-toxic HEENT: normocephalic, atraumatic, hearing acuity is intant, mucous membranes moist CVS: perfusing all extremities well, no pitting edema, tachycardic with systolic murmur Respiratory: symmetric chest expansion, no accessory muscle use, GI: soft, NTTP, ND, : no suprapubic tenderness, no CVA tenderness MSK/Derm: no rashes, cyanosis Neuro: CN II-XII intact, no motor weakness, Psych: cooperative, euthymic mood, judgment and insight is intact Objective - Vital Signs Vital signs: Vital Signs Temp 98.8 F 04/08/23 07:22 Pulse 84 04/08/23 08:00 Resp 16 04/08/23 08:00 BP 140/68 04/08/23 07:22 Pulse Ox 94 L 04/08/23 07:22 FiO2 Intake & Output 04/07/23 04/08/23 04/08/23 18:59 06:59 18:59 Intake Total 950 Output Total 1700 2800 Balance -750 -2800 Intake: Intake, IV Titration 950 Amount Lactated Ringers 1,000 ml 900 @ 75 mls/hr IV .[id number] [facility] Rx#:[id number] cefTRIAXone 2 gm In 50 Sodium Chloride 0.9% 50 ml @ 100 mls/hr IVPB HS [facility] Rx#:[id number] Output: Urine 1700 2800 Other: Voiding Method Indwelling Catheter Indwelling Catheter Indwelling Catheter - Labs CBC & Chem 7: 04/08/23 06:39 04/08/23 06:39 Labs: Abnormal Lab Results - Last 24 Hours (Table) 04/07/23 04/07/23 04/08/23 Range/Units 17:30 20:03 06:39 RBC 2.71 L (4.40-5.60) X 10*6/uL Hgb 7.8 L (13.0-17.0) g/dL Hct 25.1 L (39.6-50.0) % MCHC 31.1 L (32.0-37.0) g/dL RDW 16.4 H (11.5-14.5) % BUN (9.0-27.0) mg/dL BUN/Creatinine Ratio (12.00-20.00) Ratio Glucose (70-110) mg/dL POC Glucose (mg/dL) 163 H 138 H (70-110) mg/dL Calcium (8.7-10.3) mg/dL 04/08/23 04/08/23 Range/Units 06:39 07:23 RBC (4.40-5.60) X 10*6/uL Hgb (13.0-17.0) g/dL Hct (39.6-50.0) % MCHC (32.0-37.0) g/dL RDW (11.5-14.5) % BUN 38.6 H (9.0-27.0) mg/dL BUN/Creatinine Ratio 32.17 H (12.00-20.00) Ratio Glucose 131 H (70-110) mg/dL POC Glucose (mg/dL) 133 H (70-110) mg/dL Calcium 8.5 L (8.7-10.3) mg/dL Microbiology - Last 24 Hours (Table) 04/05/23 09:24 Blood Culture - Preliminary Blood 04/05/23 09:09 Blood Culture - Preliminary Blood 04/05/23 11:34 Urine Culture - Final Urine,Clean Catch Escherichia coli
--- NOTE | 2023-04-08 16:53 | P.DS ---
Providers Date of admission: 04/06/23 18:33 Expected date of discharge: 04/08/23 Attending physician: Gurmeet Li MD Consults: 04/05/23 10:42 Consult Physician Urgent Consulting Provider: Mehrdad Anderson Consult Reason/Comments: TAMI Do you want consulting provider notified?: Yes 04/05/23 13:34 Consult Physician Routine Consulting Provider: Awais France Consult Reason/Comments: retention Do you want consulting provider notified?: Yes Primary care physician: [facility] Course: Acute kidney injury, resolving Hypoglycemia, resolved Acute metabolic encephalopathy, resolved Type 2 diabetes now with hyperglycemia Hyperkalemia, resolved Urinary tract infection Acute urinary retention with history of BPH, now status post Miranda catheter placement Thrombocytopenia resolved Acute on chronic normocytic anemia, likely related to renal disease Hypertension Dyslipidemia Depression Hospital Course: 82-year-old male with history of hypertension, dyslipidemia, BPH, [id number] diabetes presenting with encephalopathy, increased generalized weakness and fatigue. On arrival, vital signs were within normal limits. EKG showed sinus bradycardia with known right bundle branch block, nonspecific ST-T wave changes. Chest x-ray was negative for any acute process. CT brain negative for any acute process. CBC showed hemoglobin of 8.4 slightly below his baseline, platelet 121, BMP showed potassium 5.8, bicarb of 14, anion gap 11, TAMI with a BUN of 104 and creatinine of 2.88, glucose 65. Troponin negative. Urinalysis positive for leukocyte esterase, greater than 182 WBCs. Respiratory viral panel negative. Was given 1 amp of bicarb in the ED for hyperkalemia. Also started on antibiotics. Nephrology and urology were consulted. Patient was initially on bicarb drip, now switched to lactated Ringer's. Urology recommending to go home with Miranda catheter, further urodynamic testing and cystoscopy in the office. Pts kidney function improved back to Cr of 1.3. He was instructed to complete course of abx of cefdinir of total 7 days inclusive of time receiving abx in the hospital. Pt will continue his lisinopril and lasix now that Cr has improved. He will f/u with nephrology and urology. I spent 40 minutes coordinating this discharge on 04/08 Gen: In NAD, non-toxic HEENT: normocephalic, atraumatic, hearing acuity is intant, mucous membranes moist CVS: perfusing all extremities well, no pitting edema, tachycardic with systolic murmur Respiratory: symmetric chest expansion, no accessory muscle use, GI: soft, NTTP, ND, : no suprapubic tenderness, no CVA tenderness MSK/Derm: no rashes, cyanosis Neuro: CN II-XII intact, no motor weakness, Psych: cooperative, euthymic mood, judgment and insight is intact Plan - Discharge Summary Discharge Rx Participant: No New Discharge Prescriptions: New Cefdinir [Omnicef] 300 mg PO Q12HR #8 capsule Acetaminophen Tab [Tylenol] 650 mg PO Q6HR PRN tab PRN Reason: Mild Pain Or Fever > 100.5 Continue metFORMIN HCL [Glucophage] 500 mg PO BID Tamsulosin HCl [Flomax] 0.8 mg PO HS Furosemide [Lasix] 40 mg PO DAILY lisinopriL [Zestril] 20 mg PO DAILY Glimepiride [Amaryl] 4 mg PO BID Atorvastatin [Lipitor] 40 mg PO HS Calcium Carbonate/Vitamin D3 [Calcium 500-Vit D3 400 Chew Tb] 1 tab PO DAILY Aspirin EC [Ecotrin Low Dose] 81 mg PO DAILY Pioglitazone [Actos] 45 mg PO DAILY sitaGLIPtin [Januvia] 100 mg PO DAILY Metoprolol Tartrate 25 mg PO DAILY DULoxetine HCL [Cymbalta] 30 mg PO DAILY Doxazosin [Cardura] 4 mg PO HS Discharge Medication List Atorvastatin [Lipitor] 40 mg PO HS 08/19/16 [History] Furosemide [Lasix] 40 mg PO DAILY 08/19/16 [History] Glimepiride [Amaryl] 4 mg PO BID 08/19/16 [History] Tamsulosin HCl [Flomax] 0.8 mg PO HS 08/19/16 [History] lisinopriL [Zestril] 20 mg PO DAILY 08/19/16 [History] metFORMIN HCL [Glucophage] 500 mg PO BID 08/19/16 [History] DULoxetine HCL [Cymbalta] 30 mg PO DAILY 01/04/23 [History] Metoprolol Tartrate 25 mg PO DAILY 01/04/23 [History] sitaGLIPtin [Januvia] 100 mg PO DAILY 01/04/23 [History] Aspirin EC [Ecotrin Low Dose] 81 mg PO DAILY 04/05/23 [History] Calcium Carbonate/Vitamin D3 [Calcium 500-Vit D3 400 Chew Tb] 1 tab PO DAILY 04/05/23 [History] Doxazosin [Cardura] 4 mg PO HS 04/05/23 [History] Pioglitazone [Actos] 45 mg PO DAILY 04/05/23 [History] Acetaminophen Tab [Tylenol] 650 mg PO Q6HR PRN tab 04/08/23 [Rx] Cefdinir [Omnicef] 300 mg PO Q12HR #8 capsule 04/08/23 [Rx] Follow up Appointment(s)/Referral(s): Waleska Lopez MD [STAFF PHYSICIAN] - 1 Week (please call the office to schedule a follow up appointment) Awais France MD [STAFF PHYSICIAN] - 1 Week (The office will call with appointment. ) [facility] [NON-[facility]] - 1 Week Sergio Correa DO [Primary Care Provider] - 04/16/23 9:20 am Patient Instructions/Handouts: Urinary Tract Infection in Men (DC) Activity/Diet/Wound Care/Special Instructions: Miranda to remain in place untiL seen by Dr. PEPPER TOLERATED activity as tolerated Discharge Disposition: HOME SELF-CARE
== END 2023-04-08 11:53 | disposition home or self-care (01) | DRG 682 ==
LOC: EC 07:37 → 5NMEDONC 10:59 → OBSVTOIN 04-06 18:33
PROVIDERS: ADMIT Family Medicine; ATTEND Family Medicine
DX: N17.0 Acute kidney failure with tubular necrosis (principal); E11.649 Type 2 diabetes mellitus with hypoglycemia without coma; E11.65 Type 2 diabetes mellitus with hyperglycemia; G93.41 Metabolic encephalopathy; E87.20 Acidosis, unspecified; D62 Acute posthemorrhagic anemia; N39.0 Urinary tract infection, site not specified; D69.59 Other secondary thrombocytopenia; E87.8 Other disorders of electrolyte and fluid balance, not elsewhere classified; F32.A Depression, unspecified; I10 Essential (primary) hypertension; E78.5 Hyperlipidemia, unspecified; E87.5 Hyperkalemia; I45.10 Unspecified right bundle-branch block; I49.1 Atrial premature depolarization; I87.2 Venous insufficiency (chronic) (peripheral); T44.5X5A Adverse effect of predominantly beta-adrenoreceptor agonists, initial encounter; N40.1 Benign prostatic hyperplasia with lower urinary tract symptoms; R33.8 Other retention of urine; B96.20 Unspecified Escherichia coli [E. coli] as the cause of diseases classified elsewhere; N28.1 Cyst of kidney, acquired; D75.89 Other specified diseases of blood and blood-forming organs; Z79.84 Long term (current) use of oral hypoglycemic drugs; Z79.82 Long term (current) use of aspirin; Z96.619 Presence of unspecified artificial shoulder joint; Z96.659 Presence of unspecified artificial knee joint; Z96.649 Presence of unspecified artificial hip joint; Z79.899 Other long term (current) drug therapy; Z11.52 Encounter for screening for COVID-19
CPT/HCPCS: 36415; 70450; 71046; 76770; 80048; 80053; 81001; 83036; 83605; 83735; 84100; 84484; 85025; 85027; 85610; 85730; 87040; 87077; 87086; 87186; 87636; 93005; 96361; 96365; 96367; 96375; 99285

== ENCOUNTER 2023-12-06 10:05 | Observation (INO) | payer MEDICARE ==
--- NOTE | 2023-12-06 11:15 | ED ---
General Adult HPI - General Source: patient, family Mode of arrival: ambulatory Limitations: no limitations <Geraldo Dumont - Last Filed: 12/06/23 11:14> - General Source: patient, family, RN notes reviewed Mode of arrival: ambulatory Limitations: no limitations <Merline Alonzo - Last Filed: 12/07/23 06:18> - General Chief complaint: Urogenital Stated complaint: Urogenital Time Seen by Provider: 12/06/23 11:30 - History of Present Illness Initial comments: Quick note: 83-year-old male with indwelling Miranda catheter secondary to history of urinary retention presents to the ER for concerns of complex UTI sent in by special services agent. Visual Physical Exam Vital signs reviewed General: Well-appearing, nontoxic, no acute distress. Head: Normocephalic, atraumatic Eyes: PERRLA, EOMI ENT: Airway patent Chest: Nonlabored breathing Skin: No visual rash, normal skin tone Neuro: Alert and oriented 3 Musculoskeletal: No gross abnormalities (Geraldo Dumont) This is an 83-year-old male who presents to the emergency department for IV antibiotics. Patient has been dealing with a UTI for the last couple of weeks. He just finished his second round of antibiotics yesterday, which the family believes was Bactrim. They received a call from Dr. Anderson, nephrology, that he needed to come to the emergency department for IV antibiotics to treat the UTI. He does have a chronic indwelling Miranda catheter due to problems with urinary retention. Family has not noticed any fevers/chills and the patient denies any complaints at this time. (Merline Alonzo) - Related Data Home Medications Medication Instructions Recorded Confirmed Atorvastatin [Lipitor] 40 mg PO HS 08/19/16 12/06/23 Furosemide [Lasix] 40 mg PO DAILY 08/19/16 12/06/23 Tamsulosin HCl [Flomax] 0.8 mg PO HS 08/19/16 12/06/23 DULoxetine HCL [Cymbalta] 30 mg PO DAILY 01/04/23 12/06/23 Metoprolol Tartrate 25 mg PO DAILY 01/04/23 12/06/23 sitaGLIPtin [Januvia] 100 mg PO DAILY 01/04/23 12/06/23 Aspirin EC [Ecotrin Low Dose] 81 mg PO DAILY 04/05/23 12/06/23 Calcium Carbonate/Vitamin D3 1 tab PO DAILY 04/05/23 12/06/23 [Calcium 500-Vit D3 400 Chew Tb] Doxazosin [Cardura] 4 mg PO HS 04/05/23 12/06/23 Pioglitazone [Actos] 45 mg PO DAILY 04/05/23 12/06/23 Nystatin 100,000Unit/gm Cream 1 applic TOPICAL DAILY 12/06/23 12/06/23 [Mycostatin Cream] lisinopriL [Zestril] 2.5 mg PO DAILY 12/06/23 12/06/23 metFORMIN HCL ER [Glucophage XR] 500 mg PO DAILY 12/06/23 12/06/23 Allergies Allergy/AdvReac Type Severity Reaction Status Date / Time No Known Allergies Allergy Verified 12/06/23 12:29 Review of Systems ROS Other: All systems not noted in ROS Statement are negative. <Geraldo Dumont - Last Filed: 12/06/23 11:14> ROS Other: All systems not noted in ROS Statement are negative. <Merline Alonzo - Last Filed: 12/07/23 06:18> ROS Statement: Those systems with pertinent positive or pertinent negative responses have been documented in the HPI. Past Medical History Past Medical History: Diabetes Mellitus, Hyperlipidemia, Hypertension History of Any Multi-Drug Resistant Organisms: ESBL Date of last positivie culture/infection: 11/16/23 MDRO Source:: urine Past Surgical History: Orthopedic Surgery Additional Past Surgical History / Comment(s): shoulder replacement, knee replacement, hip replacement, finger anputation Past Psychological History: No Psychological Hx Reported Smoking Status: Never smoker Past Alcohol Use History: None Reported Past Drug Use History: None Reported <Geraldo Dumont - Last Filed: 12/06/23 11:14> General Exam Limitations: no limitations <Geraldo Dumont - Last Filed: 12/06/23 11:14> Limitations: no limitations General appearance: alert, in no apparent distress Head exam: Present: atraumatic, normocephalic, normal inspection Respiratory exam: Present: normal lung sounds bilaterally. Absent: respiratory distress, wheezes, rales, rhonchi, stridor Cardiovascular Exam: Present: regular rate, normal rhythm, normal heart sounds. Absent: systolic murmur, diastolic murmur, rubs, gallop, clicks GI/Abdominal exam: Present: soft, normal bowel sounds. Absent: distended, tenderness, guarding, rebound, rigid Neurological exam: Present: alert, oriented X3, CN II-XII intact Psychiatric exam: Present: normal affect, normal mood Skin exam: Present: warm, dry, intact, normal color. Absent: rash <Merline Alonzo - Last Filed: 12/07/23 06:18> Course Vital Signs 12/06/23 10:13 Temperature 98 F Pulse Rate 72 Respiratory 16 Rate Blood Pressure 96/62 O2 Sat by Pulse 95 Oximetry Medical Decision Making - Lab Data Result diagrams: 12/06/23 11:57 12/06/23 12:03 <Merline Alonzo - Last Filed: 12/07/23 06:18> - Medical Decision Making This is an 83 year old male who presents to the emergency department for failed outpatient management of a UTI. Was pt. sent in by a medical professional or institution? @ -Yes, Dr. Anderson nephrology. Did you speak to anyone other than the patient for history? @ -No Did you review nursing and triage notes? @ -Yes, and I agree, it is accurate with regards to the patient's symptoms. Were old charts reviewed? @ -Urine culture from 12/02/2023 which returned positive for Klebsiella ESBL UTI Differential Diagnosis? @ -ESBL, fungal UTI, medication noncompliance, this is not meant to be an all- inclusive list. EKG interpreted by me (3pts min.)? @ -Not obtained X-rays interpreted by me (1pt min.)? @ -Not obtained CT interpreted by me (1pt min.)? @ -Not obtained U/S interpreted by me (1pt. min.)? @ -Not obtained What testing was considered but not performed? (CT, X-rays, U/S, labs)? Why? @ -None What meds were considered but not given? Why? @ -None Did you discuss the management of the patient with other professionals? @ -Yes, Dr. Beth, who accepts the patient for admission Did you reconcile home meds? @ -Yes Was smoking cessation discussed for >3mins.? @ -No Was critical care preformed (if so, how long)? @ -No Were there social determinants of health that impacted care today? How? (Homel essness, low income, unemployed, alcoholism, drug addiction, transportation, low edu. Level, literacy, decrease access to med. care, mcc, rehab)? @ -No Was there de-escalation of care discussed even if they declined? (Discuss DNR or withdrawal of care, Hospice)? @ -No What co-morbidities impacted this encounter? (DM, HTN, Smoking, COPD, CAD, Can cer, CVA, Hep., AIDS, mental health diagnosis, sleep apnea, morbid obesity)? @ -DM, HLD, HTN Was patient admitted / discharged? @ -Admitted. Lab work unremarkable. Urinalysis is still consistent with infection. Urine sent for culture here. Blood culture obtained as well. Miranda catheter was changed by nursing staff. Urine culture from 12/02/2023 from his nephrology office was faxed over. This was positive for Klebsiella oxytoca and pneumoniae ESBL. This is essentially only susceptible to IV antibiotics. Patient started on ertapenem daily. Patient admitted to medicine for infection with ESBL UTI and failure of outpatient management. Consult placed for infectious disease. Case discussed with ED attending Dr. Dumont. Undiagnosed new problem with uncertain prognosis? @ -None Drug Therapy requiring intensive monitoring for toxicity (Heparin, Nitro, Insulin, Cardizem)? @ -None Were any procedures done? @ -None Diagnosis/symptom? @ -Infection with Klebsiella ESBL UTI, failure of outpatient management Acute, or Chronic, or Acute on Chronic? @ -Acute Uncomplicated (without systemic symptoms) or Complicated (systemic symptoms)? @ -Uncomplicated Side effects of treatment? @ -None Exacerbation, Progression, or Severe Exacerbation] @ -Not applicable Poses a threat to life or bodily function? @ -Yes, can lead to worsening infection, which can become life threatening. (Merline Alonzo) - Lab Data Lab Results 12/06/23 12/06/23 12/06/23 Range/Units 11:28 11:57 12:03 WBC 5.4 (3.8-10.6) k/uL RBC 3.50 L (4.30-5.90) m/uL Hgb 11.0 L (13.0-17.5) gm/dL Hct 34.3 L (39.0-53.0) % MCV 97.9 (80.0-100.0) fL MCH 31.4 (25.0-35.0) pg MCHC 32.1 (31.0-37.0) g/dL RDW 13.8 (11.5-15.5) % Plt Count 172 (150-450) k/uL MPV 7.6 Neutrophils % 55 % Lymphocytes % 31 % Monocytes % 8 % Eosinophils % 3 % Basophils % 0 % Neutrophils # 3.0 (1.3-7.7) k/uL Lymphocytes # 1.7 (1.0-4.8) k/uL Monocytes # 0.4 (0-1.0) k/uL Eosinophils # 0.2 (0-0.7) k/uL Basophils # 0.0 (0-0.2) k/uL Sodium 140 (137-145) mmol/L Potassium 5.1 (3.5-5.1) mmol/L Chloride 104 (98-107) mmol/L Carbon Dioxide 31 H (22-30) mmol/L Anion Gap 5 mmol/L BUN 51 H (9-20) mg/dL Creatinine 1.60 H (0.66-1.25) mg/dL Est GFR (CKD-EPI)AfAm 46 (>60 ml/min/1.73 sqM) Est GFR (CKD-EPI)NonAf 39 (>60 ml/min/1.73 sqM) Glucose 129 H (74-99) mg/dL Plasma Lactic Acid Lousi (0.7-2.0) mmol/L Calcium 8.8 (8.4-10.2) mg/dL Total Bilirubin 0.4 (0.2-1.3) mg/dL AST 19 (17-59) U/L ALT 14 (4-49) U/L Alkaline Phosphatase 54 (38-126) U/L Total Protein 6.3 (6.3-8.2) g/dL Albumin 3.5 (3.5-5.0) g/dL Urine Color Colorless Urine Appearance Cloudy (Clear) Urine pH 6.5 (5.0-8.0) Ur Specific [place] 1.011 (1.001-1.035) Urine Protein Negative (Negative) Urine Glucose (UA) 2+ H (Negative) Urine Ketones Negative (Negative) Urine Blood Negative (Negative) Urine Nitrite Negative (Negative) Urine Bilirubin Negative (Negative) Urine Urobilinogen <2.0 (<2.0) mg/dL Ur Leukocyte Esterase Large H (Negative) Urine RBC 2 (0-5) /hpf Urine WBC 19 H (0-5) /hpf Urine Bacteria Many H (None) /hpf Urine Mucus Rare H (None) /hpf 12/06/23 Range/Units 12:03 WBC (3.8-10.6) k/uL RBC (4.30-5.90) m/uL Hgb (13.0-17.5) gm/dL Hct (39.0-53.0) % MCV (80.0-100.0) fL MCH (25.0-35.0) pg MCHC (31.0-37.0) g/dL RDW (11.5-15.5) % Plt Count (150-450) k/uL MPV Neutrophils % % Lymphocytes % % Monocytes % % Eosinophils % % Basophils % % Neutrophils # (1.3-7.7) k/uL Lymphocytes # (1.0-4.8) k/uL Monocytes # (0-1.0) k/uL Eosinophils # (0-0.7) k/uL Basophils # (0-0.2) k/uL Sodium (137-145) mmol/L Potassium (3.5-5.1) mmol/L Chloride (98-107) mmol/L Carbon Dioxide (22-30) mmol/L Anion Gap mmol/L BUN (9-20) mg/dL Creatinine (0.66-1.25) mg/dL Est GFR (CKD-EPI)AfAm (>60 ml/min/1.73 sqM) Est GFR (CKD-EPI)NonAf (>60 ml/min/1.73 sqM) Glucose (74-99) mg/dL Plasma Lactic Acid Louis 2.0 (0.7-2.0) mmol/L Calcium (8.4-10.2) mg/dL Total Bilirubin (0.2-1.3) mg/dL AST (17-59) U/L ALT (4-49) U/L Alkaline Phosphatase (38-126) U/L Total Protein (6.3-8.2) g/dL Albumin (3.5-5.0) g/dL Urine Color Urine Appearance (Clear) Urine pH (5.0-8.0) Ur Specific [place] (1.001-1.035) Urine Protein (Negative) Urine Glucose (UA) (Negative) Urine Ketones (Negative) Urine Blood (Negative) Urine Nitrite (Negative) Urine Bilirubin (Negative) Urine Urobilinogen (<2.0) mg/dL Ur Leukocyte Esterase (Negative) Urine RBC (0-5) /hpf Urine WBC (0-5) /hpf Urine Bacteria (None) /hpf Urine Mucus (None) /hpf Disposition <Geraldo Dumont - Last Filed: 12/06/23 11:14> <Merline Alonzo - Last Filed: 12/07/23 06:18> Clinical Impression: Urinary tract infection due to ESBL Klebsiella, Failure of outpatient treatment Disposition: ADMITTED IP TO THIS HOSP
[2023-12-06 12:01] LABS: Appearance,Urine Cloudy (Clear); Bacteria,Urine Many /hpf; Bilirubin,Urine Negative (Negative); Blood,Urine Negative (Negative); Color,Urine Colorless; Glucose,Urine (UA) 2+ (Negative); Ketones,Urine Negative (Negative); Leukocyte Esterase,Urine Large (Negative); Mucus,Urine Rare /hpf; Nitrite,Urine Negative (Negative); PH, Urine 6.5 (5.0-8.0); Protein,Urine Negative (Negative); RBC,Urine 2 /hpf (0-5); Specific Gravity,Urine 1.011 (1.001-1.035); Urobilinogen,Urine <2.0 mg/dL (<2.0); WBC,Urine 19 /hpf (0-5)
[2023-12-06 12:07] LABS: Basophils % (A) 0 %; Eosinophils # (A) 0.2 k/uL (0-0.7); Eosinophils % (A) 3 %; HCT 34.3 % (39.0-53.0); Lymphocytes # (A) 1.7 k/uL (1.0-4.8); Lymphocytes % (A) 31 %; MCH 31.4 pg (25.0-35.0); MCHC 32.1 g/dL (31.0-37.0); MCV 97.9 fL (80.0-100.0); Mean Platelet Volume 7.6; Monocytes # (A) 0.4 k/uL (0-1.0); Monocytes % (A) 8 %; Neutrophils % (A) 55 %; Platelet Count 172 k/uL (150-450); RDW 13.8 % (11.5-15.5); WBC 5.4 k/uL (3.8-10.6)
[2023-12-06] MEDS: SODIUM CHLORIDE 0.9% 1,000 ML IV STA (12:10)
[2023-12-06 12:18] LABS: ALT 14 U/L (4-49); AST 19 U/L (17-59); African American GFR (CKD) 46 (>60 ml/min/1.73 sqM); Albumin 3.5 g/dL (3.5-5.0); Alkaline Phosphatase 54 U/L (38-126); Anion Gap 5 mmol/L; Blood Urea Nitrogen 51 mg/dL (9-20); Calcium 8.8 mg/dL (8.4-10.2); Carbon Dioxide 31 mmol/L (22-30); Chloride 104 mmol/L (98-107); Glucose 129 mg/dL (74-99); Non-African American GFR(CKD) 39 (>60 ml/min/1.73 sqM); Potassium 5.1 mmol/L (3.5-5.1); Sodium 140 mmol/L (137-145); Total Bilirubin 0.4 mg/dL (0.2-1.3); Total Protein 6.3 g/dL (6.3-8.2)
[2023-12-06] MEDS ORDERED: MORPHINE SULFATE 4 MG/ML SYRINGE IV PRN (13:47)
[2023-12-06] MEDS ORDERED: ONDANSETRON 4 MG/2 ML VIAL IVP PRN (13:47)
[2023-12-06] MEDS ORDERED: ACETAMINOPHEN TAB 325 MG TAB PO PRN (13:47)
[2023-12-06] MEDS ORDERED: HYDROcodone/APAP 5-325MG 1 EACH TAB PO PRN (13:47)
[2023-12-06] MEDS ORDERED: NALOXONE 0.4 MG/ML 1 ML VIAL IV PRN (13:47)
[2023-12-06] MEDS: ERTAPENEM 1 GM in SODIUM CHLORIDE 0.9% 50 ML IVPB SCH (14:48)
[2023-12-06] MEDS: SODIUM CHLORIDE 0.9% 1,000 ML IV SCH (14:48)
[2023-12-06] MEDS ORDERED: PIPERACILLIN-TAZOBACTAM 3.375 GM in SODIUM CHLORIDE 0.9% 100 ML IVPB SCH (16:00)
[2023-12-06 17:07] LABS: Glucose,Whole Blood 122 mg/dL (70-110)
--- NOTE | 2023-12-06 18:38 | P.HPIM ---
History of Present Illness H&P Date: 12/06/23 Patient is a 83-year-old male with PMH of stage IIIa CKD, recurrent history of UTI, type 2 diabetes, BPH, hypertension was asked to come to the ER after he saw rabbit breeder Dr. Anderson today for initiation of IV antibiotics against Klebsiella ESBL. Patient had urine culture and sensitivity on 11/16/2023 which was positive for Klebsiella ESBL patient was started on Bactrim for about 5 days. Patient to follow-up with Dr. Anderson last week and repeat urine culture and sensitivity report shows the patient is multidrug-resistant to oral medications for Klebsiella ESBL including Bactrim. Patient was advised to come to the ER to get the appropriate IV antibiotic therapy. Currently patient is on IV ertapenem 1 g IVP daily. Patient never really complained of any symptoms initially. Urine culture and blood culture was part of his routine assessment done by his regular doctor. At the time of the interview, he is not complaining of any dysuria, urgency frequency urination, hematuria, abdominal pain, fever, chills and nausea vomiting. Denies any flank pain. Patient has been on indwelling catheter since 3 to 4 months for urine retention. It is changed every 2 weeks. Laboratory evaluations in the ER shows WBC 5.4, hemoglobin 11.0, hematocrit 34.3, platelet count 172, sodium 140, potassium 5.1, chloride 104, bicarb 31, BUN 51, creatinine 1.60, EGFR 46, glucose 109, AST 90, ALT 14, alkaline phosphatase 54 Urinalysis show nitrate negative, leukocyte esterase positive, urine WBC 19 Review of systems: Pertinent positives and negatives as discussed in HPI, a complete review of systems was performed and all other systems are negative. Physical examination: Vital signs reviewed General: non toxic, no distress, appears at stated age, normal weight Cardiovascular: S1S2 reg, no murmur, positive dorsalis pedis pulse bilateral, no edema Lungs: CTA bilateral, no rhonchi, no rales, no accessory muscle use Abdominal: soft, nontender to palpation, no guarding, patient has indwelling catheter. Psych: Alert, oriented, appropriate affect Assessment/Plan: Patient is a 83-year-old male with PMH of stage IIIa CKD, recurrent history of UTI, type 2 diabetes, BPH, hypertension was asked to come to the ER after he saw rabbit breeder Dr. Anderson today for initiation of IV antibiotics against K lebsiella ESBL. #Complicated UTI with failed outpatient therapy #Multidrug-resistant urine culture and sensitivity (please note: the diagnosis of UTI was during outpatient evaluation, patient reported symptoms of: increased frequency and nocturia, as such we will move for teran treating this as an infection as opposed to colonization or asymptomatic bacteriuria as appropriate, thank you to our ID team who will help consult on this case) repeat urine culture and sensitivity report shows the patient is multidrug- resistant to oral medications for Klebsiella ESBL Urinalysis show nitrate negative, leukocyte esterase positive, urine WBC 19 Outpatient failed therapy with Bactrim Patient on IV ertapenem 1 g IVP daily Infectious disease consulted; case discussed; patient to get dose of IV ertapenem 1 g IVP today and tomorrow Continue monitor CBC Continue with IV normal saline 75 cc/h #Chronic conditions Hypertension, type 2 diabetes, BPH, CKD stage 3a Home medications have been reconciled DVT prophylaxis: None The patient is admitted with an anticipated less than 2 midnight stay for evaluation of complicated UTI CODE STATUS: Full Discussed with: Patient Anticipated discharge place: Pending clinical course I saw and evaluated the patient during the motley and critical portions of this encounter, and discussed the case in detail with the resident author of this note, I agree with the Assessment and Plan, and my changes, if any, are highlighted in blue. Past Medical History Past Medical History: Diabetes Mellitus, Hyperlipidemia, Hypertension History of Any Multi-Drug Resistant Organisms: ESBL Date of last positivie culture/infection: 11/16/23 MDRO Source:: urine Past Surgical History: Orthopedic Surgery Additional Past Surgical History / Comment(s): shoulder replacement, knee replacement, hip replacement, finger anputation Past Psychological History: No Psychological Hx Reported Smoking Status: Never smoker Past Alcohol Use History: None Reported Past Drug Use History: None Reported Medications and Allergies Home Medications Medication Instructions Recorded Confirmed Type Atorvastatin [Lipitor] 40 mg PO HS 08/19/16 12/06/23 History Furosemide [Lasix] 40 mg PO DAILY 08/19/16 12/06/23 History Tamsulosin HCl [Flomax] 0.8 mg PO HS 08/19/16 12/06/23 History DULoxetine HCL [Cymbalta] 30 mg PO DAILY 01/04/23 12/06/23 History Metoprolol Tartrate 25 mg PO DAILY 01/04/23 12/06/23 History sitaGLIPtin [Januvia] 100 mg PO DAILY 01/04/23 12/06/23 History Aspirin EC [Ecotrin Low Dose] 81 mg PO DAILY 04/05/23 12/06/23 History Calcium Carbonate/Vitamin D3 1 tab PO DAILY 04/05/23 12/06/23 History [Calcium 500-Vit D3 400 Chew Tb] Doxazosin [Cardura] 4 mg PO HS 04/05/23 12/06/23 History Pioglitazone [Actos] 45 mg PO DAILY 04/05/23 12/06/23 History Nystatin 100,000Unit/gm Cream 1 applic TOPICAL DAILY 12/06/23 12/06/23 History [Mycostatin Cream] lisinopriL [Zestril] 2.5 mg PO DAILY 12/06/23 12/06/23 History metFORMIN HCL ER [Glucophage XR] 500 mg PO DAILY 12/06/23 12/06/23 History Allergies Allergy/AdvReac Type Severity Reaction Status Date / Time No Known Allergies Allergy Verified 12/06/23 12:29 Physical Exam Osteopathic Statement: *. No significant issues noted on an osteopathic structural exam other than those noted in the History and Physical/Consult. Vitals: Vital Signs Temp Pulse Pulse Resp BP BP Pulse Ox 12/06/23 15:45 97.9 F 64 18 122/72 94 L 12/06/23 10:13 98 F 72 16 96/62 95 Intake and Output 12/06/23 12/06/23 12/06/23 06:59 14:59 22:59 Other: Voiding Method Indwelling Catheter Weight 108.862 kg Results CBC & Chem 7: 12/06/23 11:57 12/06/23 12:03 Labs: Abnormal Lab Results - Last 24 Hours (Table) 12/06/23 12/06/23 12/06/23 Range/Units 11:28 11:57 12:03 RBC 3.50 L (4.30-5.90) m/uL Hgb 11.0 L (13.0-17.5) gm/dL Hct 34.3 L (39.0-53.0) % Carbon Dioxide 31 H (22-30) mmol/L BUN 51 H (9-20) mg/dL Creatinine 1.60 H (0.66-1.25) mg/dL Glucose 129 H (74-99) mg/dL POC Glucose (mg/dL) (70-110) mg/dL Urine Glucose (UA) 2+ H (Negative) Ur Leukocyte Esterase Large H (Negative) Urine WBC 19 H (0-5) /hpf Urine Bacteria Many H (None) /hpf Urine Mucus Rare H (None) /hpf 12/06/23 Range/Units 17:04 RBC (4.30-5.90) m/uL Hgb (13.0-17.5) gm/dL Hct (39.0-53.0) % Carbon Dioxide (22-30) mmol/L BUN (9-20) mg/dL Creatinine (0.66-1.25) mg/dL Glucose (74-99) mg/dL POC Glucose (mg/dL) 122 H (70-110) mg/dL Urine Glucose (UA) (Negative) Ur Leukocyte Esterase (Negative) Urine WBC (0-5) /hpf Urine Bacteria (None) /hpf Urine Mucus (None) /hpf
[2023-12-06] MEDS: DOXAZOSIN 4 MG TAB PO SCH (20:27)
[2023-12-06] MEDS: ATORVASTATIN 40 MG TAB PO SCH (20:27)
[2023-12-06] MEDS: TAMSULOSIN 0.4 MG CAP.ER.24H PO SCH (20:27)
--- NOTE | 2023-12-06 21:17 | P.CONS ---
History of Present Illness - Reason for Consult Consult date: 12/06/23 Klebsiella ESBL UTI Requesting physician: Merline Alonzo - Chief Complaint Positive urine culture done outpatient with ESBL - History of Present Illness Patient is a 83-year-old male with a past medical history significant for diabetes mellitus hypertension hyperlipidemia patient did have urinary retention and a chronic indwelling Miranda catheter that apparently was recently changed on Wednesday patient apparently did have a outpatient urine culture done by his trolley collector and came back positive with ESBL Klebsiella and post culture ordered on 11/16/2023 however the patient has not received any treatment for the same patient denies having any fever or any chills patient is breathing comfortably on room air denies having any chest pain shortness of breath or cough no nausea vomiting no abdominal pain and no diarrhea patient on presentation the hospital was afebrile patient was not tachycardic hypotensive or hypoxic he did have a white count of 5.4 BUN and creatinine has been mildly elevated urine was positive with large leukocyte esterase only 19 WBC many bacteria's and patient has been admitted to hospital started on Invanz infectious disease was consulted for further management of antibiotic therapy Review of Systems Positive point and negatives has been mentioned in the HPI, complete review of systems was performed and all other systems are negative Past Medical History Past Medical History: Diabetes Mellitus, Hyperlipidemia, Hypertension History of Any Multi-Drug Resistant Organisms: ESBL Year Discovered:: 11/16/23 MDRO Source:: urine Past Surgical History: Orthopedic Surgery Additional Past Surgical History / Comment(s): shoulder replacement, knee replacement, hip replacement, finger anputation Past Psychological History: No Psychological Hx Reported Smoking Status: Never smoker Past Alcohol Use History: None Reported Past Drug Use History: None Reported Medications and Allergies Home Medications Medication Instructions Recorded Confirmed Type Atorvastatin [Lipitor] 40 mg PO HS 08/19/16 12/06/23 History Furosemide [Lasix] 40 mg PO DAILY 08/19/16 12/06/23 History Tamsulosin HCl [Flomax] 0.8 mg PO HS 08/19/16 12/06/23 History DULoxetine HCL [Cymbalta] 30 mg PO DAILY 01/04/23 12/06/23 History Metoprolol Tartrate 25 mg PO DAILY 01/04/23 12/06/23 History sitaGLIPtin [Januvia] 100 mg PO DAILY 01/04/23 12/06/23 History Aspirin EC [Ecotrin Low Dose] 81 mg PO DAILY 04/05/23 12/06/23 History Calcium Carbonate/Vitamin D3 1 tab PO DAILY 04/05/23 12/06/23 History [Calcium 500-Vit D3 400 Chew Tb] Doxazosin [Cardura] 4 mg PO HS 04/05/23 12/06/23 History Pioglitazone [Actos] 45 mg PO DAILY 04/05/23 12/06/23 History Nystatin 100,000Unit/gm Cream 1 applic TOPICAL DAILY 12/06/23 12/06/23 History [Mycostatin Cream] lisinopriL [Zestril] 2.5 mg PO DAILY 12/06/23 12/06/23 History metFORMIN HCL ER [Glucophage XR] 500 mg PO DAILY 12/06/23 12/06/23 History Allergies Allergy/AdvReac Type Severity Reaction Status Date / Time No Known Allergies Allergy Verified 12/06/23 12:29 Physical Exam Vitals: Vital Signs Temp Pulse Resp BP Pulse Ox 12/06/23 10:13 98 F 72 16 96/62 95 Intake and Output 12/06/23 12/06/23 12/06/23 06:59 14:59 22:59 Other: Voiding Method Indwelling Catheter Weight 108.862 kg GENERAL DESCRIPTION: Elderly male lying in bed, no distress. No tachypnea or accessory muscle of respiration use. HEENT: Shows Pallor , no scleral icterus. Oral mucous membrane is dry. No pharyngeal erythema or thrush NECK: Trachea central, no thyromegaly. LUNGS: Unlabored breathing. Clear to auscultation anteriorly. No wheeze or crackle. HEART: S1, S2, regular rate and rhythm. No loud murmur ABDOMEN: Soft, no tenderness , guarding or rigidity, no organomegaly EXTREMITIES: No edema of feet. SKIN: No rash, no masses palpable. NEUROLOGICAL: The patient is awake, alert, oriented x3, mood and affect normal. Results CBC & Chem 7: 12/06/23 11:57 12/06/23 12:03 Labs: Abnormal Lab Results - Last 24 Hours (Table) 12/06/23 12/06/23 12/06/23 Range/Units 11:28 11:57 12:03 RBC 3.50 L (4.30-5.90) m/uL Hgb 11.0 L (13.0-17.5) gm/dL Hct 34.3 L (39.0-53.0) % Carbon Dioxide 31 H (22-30) mmol/L BUN 51 H (9-20) mg/dL Creatinine 1.60 H (0.66-1.25) mg/dL Glucose 129 H (74-99) mg/dL Urine Glucose (UA) 2+ H (Negative) Ur Leukocyte Esterase Large H (Negative) Urine WBC 19 H (0-5) /hpf Urine Bacteria Many H (None) /hpf Urine Mucus Rare H (None) /hpf Assessment and Plan (1) Urinary tract infection due to ESBL Klebsiella Current Visit: Yes Status: Acute Code(s): N39.0 - URINARY TRACT INFECTION, SITE NOT SPECIFIED; B96.89 - OTH BACTERIAL AGENTS THE CAUSE OF DISEASES [facility]SD [facility] SNOMED Code(s): 894641974980124 Plan: 1patient presented to hospital for evaluation of a urine culture that was done on 11/16/2023 that was positive for ESBL Klebsiella clinically doubt true infection as the patient would have worsening symptoms by now with a question of possible Miranda colonization or contamination has the patient not running any fever did not have any elevated white count and no suprapubic tenderness 2-discussed with admitting team as the patient has already been admitted for U TI, a dose of Invanz today as well as a dose tomorrow should be more than enough for possible cystitis though clinical suspicion remains to be low for any deeper infection and no need for IV antibiotics on discharge We will follow on clinical condition and cultures to further adjust medication if needed Thank you for this consultation we will follow the patient along with you Dictation was produced using [employer] dictation software. please excuse any grammatical, word or spelling errors. Time with Patient: Greater than 30
[2023-12-07 01:20] VITALS: TEMP 98.1
[2023-12-07 07:40] VITALS: BP 131/70; PULSE 72; RESP 16
[2023-12-07 07:50] LABS: Basophils % (A) 0 %; Eosinophils # (A) 0.2 k/uL (0-0.7); Eosinophils % (A) 3 %; HCT 33.9 % (39.0-53.0); HGB 10.5 gm/dL (13.0-17.5); Lymphocytes # (A) 1.2 k/uL (1.0-4.8); Lymphocytes % (A) 26 %; MCH 30.5 pg (25.0-35.0); MCV 98.4 fL (80.0-100.0); Mean Platelet Volume 7.5; Monocytes # (A) 0.3 k/uL (0-1.0); Monocytes % (A) 7 %; Neutrophils # (A) 2.9 k/uL (1.3-7.7); Neutrophils % (A) 61 %; Platelet Count 146 k/uL (150-450); RBC 3.45 m/uL (4.30-5.90); RDW 13.6 % (11.5-15.5); WBC 4.7 k/uL (3.8-10.6)
[2023-12-07 08:14] LABS: African American GFR (CKD) 59 (>60 ml/min/1.73 sqM); Anion Gap 4 mmol/L; Blood Urea Nitrogen 44 mg/dL (9-20); Calcium 8.3 mg/dL (8.4-10.2); Carbon Dioxide 29 mmol/L (22-30); Chloride 104 mmol/L (98-107); Glucose 147 mg/dL (74-99); Non-African American GFR(CKD) 51 (>60 ml/min/1.73 sqM); Potassium 4.5 mmol/L (3.5-5.1); Sodium 137 mmol/L (137-145)
[2023-12-07] MEDS: ASPIRIN 81 MG PO SCH (09:43)
[2023-12-07] MEDS: FUROSEMIDE 40 MG TAB PO SCH (09:43)
[2023-12-07] MEDS: CALCIUM CARB-VIT D 500 MG-5 MCG TAB PO SCH (09:43)
[2023-12-07] MEDS: METOPROLOL TARTRATE 25 MG TAB PO SCH (09:44)
[2023-12-07] MEDS: metFORMIN 500 MG TAB PO SCH (09:44)
[2023-12-07] MEDS: LINAGLIPTIN 5 MG TABLET PO SCH (10:43)
[2023-12-07] MEDS: DULoxetine HCL 30 MG CAPSULE.DR PO SCH (10:43)
[2023-12-07] MEDS: PIOGLITAZONE 45 MG TAB PO SCH (10:43)
[2023-12-07 12:03] LABS: Glucose,Whole Blood 180 mg/dL (70-110)
--- NOTE | 2023-12-07 13:28 | P.DS ---
Providers Date of admission: 12/06/23 15:02 Attending physician: Umu Beth MD Discharge Diagnosis: #[UTI with failed outpatient therapy #Multidrug resistant for urine culture and sensitivity Hospital Course: Patient is a 83-year-old male with PMH of stage IIIa CKD, recurrent history of UTI, type 2 diabetes, BPH, hypertension was asked to come to the ER after he saw voice and data technician Dr. Anderson today for initiation of IV antibiotics against Klebsiella ESBL. Patient had urine culture and sensitivity on 11/16/2023 which was positive for Klebsiella ESBL patient was started on Bactrim for about 5 days. Patient to follow-up with Dr. Anderson last week and repeat urine culture and sensitivity report shows the patient is multidrug-resistant to oral medications for Klebsiella ESBL including Bactrim. Patient was advised to come to the ER to get the appropriate IV antibiotic therapy. Patient is started on IV ertapenem 1 g IVP daily. Laboratory evaluations in the ER shows WBC 5.4, hemoglobin 11.0, hematocrit 34.3, platelet count 172, sodium 140, potassium 5.1, chloride 104, bicarb 31, BUN 51, creatinine 1.60, EGFR 46, glucose 109, AST 90, ALT 14, alkaline phosphatase 54. Urinalysis show nitrate negative, leukocyte esterase positive, urine WBC 19At the time of the interview, he is not com plaining of any dysuria, urgency frequency urination, hematuria, abdominal pain, fever, chills and nausea vomiting. Denies any flank pain. Patient has been on indwelling catheter since 3 to 4 months for urine retention. It is changed every 2 weeks. Patient is optimized for discharge. Patient completed in total 2 doses IV ertapenem. Patient is asymptomatic. Denies any signs of daily UTI such as urgency, frequency of urination, hematuria, abdominal pain. Discharge instructions: Patient is advised to follow-up with PCP within 1 to 2 days. Patient is to continue with regular home medications as directed Patient is provided with handout/instruction for UTI in men upon discharge Vital signs reviewed. Gen: in no apparent distress, resting comfortably in bed Eyes: PERRL, no scleral injection or icterus HENT: normocephalic, atraumatic, good hearing acuity, moist mucous membranes Neck: full range of motion Resp: CTAB, no rales, rhonchi, or wheezes CVS: normal S1 and S2, no murmurs, rubs or gallops, no edema GI: soft, NTTP, ND, no hepatosplenomegaly : no suprapubic tenderness, no CVAT, phelan catheter is present MSK: no clubbing, no cyanosis, no noted contractures of extremities Skin: no noted rashes, petechiae; temperature of skin is appropriate Neuro: moving all extremities without signs of weakness, CN II-XII intact Psych: cooperative, euthymic mood, insight and judgment intact I saw and evaluated the patient during the motley and critical portions of this encounter, and discussed the case in detail with the resident author of this note, I agree with the Assessment and Plan, and my changes, if any, are highlighted in blue. Consults: 12/06/23 13:47 Consult Physician Urgent Consulting Provider: Catina Camara Consult Reason/Comments: Klebsiella ESBL UTI Do you want consulting provider notified?: Yes Primary care physician: Sergio Correa Plan - Discharge Summary New Discharge Prescriptions: Continue Tamsulosin HCl [Flomax] 0.8 mg PO HS Furosemide [Lasix] 40 mg PO DAILY Atorvastatin [Lipitor] 40 mg PO HS Calcium Carbonate/Vitamin D3 [Calcium 500-Vit D3 400 Chew Tb] 1 tab PO DAILY Aspirin EC [Ecotrin Low Dose] 81 mg PO DAILY Pioglitazone [Actos] 45 mg PO DAILY lisinopriL [Zestril] 2.5 mg PO DAILY sitaGLIPtin [Januvia] 100 mg PO DAILY Metoprolol Tartrate 25 mg PO DAILY DULoxetine HCL [Cymbalta] 30 mg PO DAILY Doxazosin [Cardura] 4 mg PO HS Nystatin 100,000Unit/gm Cream [Mycostatin Cream] 1 applic TOPICAL DAILY metFORMIN HCL ER [Glucophage XR] 500 mg PO DAILY Discharge Medication List Atorvastatin [Lipitor] 40 mg PO HS 08/19/16 [History] Furosemide [Lasix] 40 mg PO DAILY 08/19/16 [History] Tamsulosin HCl [Flomax] 0.8 mg PO HS 08/19/16 [History] DULoxetine HCL [Cymbalta] 30 mg PO DAILY 01/04/23 [History] Metoprolol Tartrate 25 mg PO DAILY 01/04/23 [History] sitaGLIPtin [Januvia] 100 mg PO DAILY 01/04/23 [History] Aspirin EC [Ecotrin Low Dose] 81 mg PO DAILY 04/05/23 [History] Calcium Carbonate/Vitamin D3 [Calcium 500-Vit D3 400 Chew Tb] 1 tab PO DAILY 04/05/23 [History] Doxazosin [Cardura] 4 mg PO HS 04/05/23 [History] Pioglitazone [Actos] 45 mg PO DAILY 04/05/23 [History] Nystatin 100,000Unit/gm Cream [Mycostatin Cream] 1 applic TOPICAL DAILY 12/06/23 [History] lisinopriL [Zestril] 2.5 mg PO DAILY 12/06/23 [History] metFORMIN HCL ER [Glucophage XR] 500 mg PO DAILY 12/06/23 [History] Follow up Appointment(s)/Referral(s): Sergio Correa DO [Primary Care Provider] - 1-2 days Patient Instructions/Handouts: Urinary Tract Infection in Men (DC) Activity/Diet/Wound Care/Special Instructions: Please follow up with your PCP within 1-2 days.
[2023-12-07] MEDS: NYSTATIN 100,000UNIT/GM CREAM 30 GM TUBE TOPICAL SCH (13:54)
--- NOTE | 2023-12-07 15:40 | P.PN ---
Subjective Progress Note Date: 12/07/23 Principal diagnosis: Reason for follow-up is outpatient urine culture positive for ESBL Klebsiella Patient is a 83-year-old male with a past medical history significant for diabetes mellitus hypertension hyperlipidemia patient did have urinary retention and a chronic indwelling Miranda catheter that apparently was recently changed on Wednesday patient apparently did have a outpatient urine culture done by his shingle cutter and came back positive with ESBL Klebsiella for which the patient was advised to go to the hospital and was admitted for UTI. On today's evaluation that is 12/07/2023, patient has been afebrile, patient is breathing comfortably and is currently on room air, patient denies having any significant cough no chest pain, patient denies nausea vomiting or diarrhea and no abdominal pain, patient mention feeling better no new symptoms. Patient white count is 4.7, creatinine 1.2 9 repeat urine culture negative Objective - Vital Signs Vital signs: Vital Signs Temp 98.1 F 12/07/23 07:25 Pulse 72 12/07/23 07:25 Resp 16 12/07/23 07:25 BP 131/70 12/07/23 07:25 Pulse Ox 93 L 12/07/23 07:25 FiO2 Intake & Output 12/06/23 12/07/23 12/07/23 18:59 06:59 18:59 Intake Total 118 Output Total 2900 Balance -2900 118 Weight 108.862 kg 108.862 kg Intake: Oral 118 Output: Urine 2900 Other: Voiding Method Indwelling Catheter Indwelling Catheter Indwelling Catheter - Exam Elderly male lying in bed no distress in no distress No tachypnea or accessory muscle respiration use Unlabored breathing - Labs CBC & Chem 7: 12/07/23 07:40 12/07/23 07:40 Labs: Abnormal Lab Results - Last 24 Hours (Table) 12/06/23 12/06/23 12/06/23 Range/Units 11:28 11:57 12:03 RBC 3.50 L (4.30-5.90) m/uL Hgb 11.0 L (13.0-17.5) gm/dL Hct 34.3 L (39.0-53.0) % Plt Count (150-450) k/uL Carbon Dioxide 31 H (22-30) mmol/L BUN 51 H (9-20) mg/dL Creatinine 1.60 H (0.66-1.25) mg/dL Glucose 129 H (74-99) mg/dL POC Glucose (mg/dL) (70-110) mg/dL Calcium (8.4-10.2) mg/dL Urine Glucose (UA) 2+ H (Negative) Ur Leukocyte Esterase Large H (Negative) Urine WBC 19 H (0-5) /hpf Urine Bacteria Many H (None) /hpf Urine Mucus Rare H (None) /hpf 12/06/23 12/07/23 12/07/23 Range/Units 17:04 07:40 07:40 RBC 3.45 L (4.30-5.90) m/uL Hgb 10.5 L (13.0-17.5) gm/dL Hct 33.9 L (39.0-53.0) % Plt Count 146 L (150-450) k/uL Carbon Dioxide (22-30) mmol/L BUN 44 H (9-20) mg/dL Creatinine 1.29 H (0.66-1.25) mg/dL Glucose 147 H (74-99) mg/dL POC Glucose (mg/dL) 122 H (70-110) mg/dL Calcium 8.3 L (8.4-10.2) mg/dL Urine Glucose (UA) (Negative) Ur Leukocyte Esterase (Negative) Urine WBC (0-5) /hpf Urine Bacteria (None) /hpf Urine Mucus (None) /hpf Assessment and Plan (1) Urinary tract infection due to ESBL Klebsiella Current Visit: Yes Status: Acute Code(s): N39.0 - URINARY TRACT INFECTION, SITE NOT SPECIFIED; B96.89 - OT BACTERIAL AGENTS THE CAUSE OF DISEASES CLASSD [facility] SNOMED Code(s): 085233361915302 Plan: 1patient presented to hospital for evaluation of a urine culture that was done on 11/16/2023 that was positive for ESBL Klebsiella clinically doubt true infection as the patient would have worsening symptoms by now with a question of possible Miranda colonization or contamination has the patient not running any fever did not have any elevated white count and no suprapubic tenderness 2-has received 2 doses of antibiotic more than enough no need for any antibiotic on discharge Dictation was produced using [employer] dictation software. please excuse any grammatical, word or spelling errors. Time with Patient: Less than 30
== END 2023-12-07 15:40 | disposition home or self-care (01) ==
LOC: EC 10:05 → 4SSUR 15:02 → INTOOBSV 15:02 → 1SOBS 15:13 → 6NMEDSUR 12-07 05:50
PROVIDERS: ADMIT Internal Medicine; ATTEND Internal Medicine
DX: N39.0 Urinary tract infection, site not specified (principal); B96.1 Klebsiella pneumoniae [K. pneumoniae] as the cause of diseases classified elsewhere; E11.22 Type 2 diabetes mellitus with diabetic chronic kidney disease; E78.5 Hyperlipidemia, unspecified; I12.9 Hypertensive chronic kidney disease with stage 1 through stage 4 chronic kidney disease, or unspecified chronic kidney disease; N18.31 Chronic kidney disease, stage 3a; N40.0 Benign prostatic hyperplasia without lower urinary tract symptoms; Z16.12 Extended spectrum beta lactamase (ESBL) resistance; Z16.24 Resistance to multiple antibiotics; Z87.440 Personal history of urinary (tract) infections; Z79.82 Long term (current) use of aspirin; Z79.84 Long term (current) use of oral hypoglycemic drugs; Z79.899 Other long term (current) drug therapy
CPT/HCPCS: 96365; 96366; 99284; 36415; 80053; 80048; 83605; 85025 ×2; 81001; 87040; 87086; G0378 ×2; J1335 ×2

== ENCOUNTER 2024-02-11 05:00 | Emergency (ER) | payer MEDICARE ==
[2024-02-11 05:06] VITALS: RESP 18
--- NOTE | 2024-02-11 06:04 | ED ---
Male Urogenital HPI - General Chief complaint: Urogenital Stated complaint: Catheter Issues Time Seen by Provider: 02/11/24 05:15 Source: family Mode of arrival: wheelchair Limitations: no limitations - History of Present Illness Initial comments: Patient is an 83-year-old man with history of chronic Miranda catheter placement. Patient's family states this is due to prostatic enlargement. Patient noted over the course of tonight into this morning that he is not having any urine drainage. Patient also complains of suprapubic discomfort. No fever or chills noted MD Complaint: other -: hour(s) Location: abdomen Radiation: none Severity: moderate Quality: other (Pressure) Consistency: constant Improves with: none Worsens with: none indwelling catheter Reports: urinary retention - Related Data Home Medications Medication Instructions Recorded Confirmed Atorvastatin [Lipitor] 40 mg PO HS 08/19/16 12/06/23 Furosemide [Lasix] 40 mg PO DAILY 08/19/16 12/06/23 Tamsulosin HCl [Flomax] 0.8 mg PO HS 08/19/16 12/06/23 DULoxetine HCL [Cymbalta] 30 mg PO DAILY 01/04/23 12/06/23 Metoprolol Tartrate 25 mg PO DAILY 01/04/23 12/06/23 sitaGLIPtin [Januvia] 100 mg PO DAILY 01/04/23 12/06/23 Aspirin EC [Ecotrin Low Dose] 81 mg PO DAILY 04/05/23 12/06/23 Calcium Carbonate/Vitamin D3 1 tab PO DAILY 04/05/23 12/06/23 [Calcium 500-Vit D3 400 Chew Tb] Doxazosin [Cardura] 4 mg PO HS 04/05/23 12/06/23 Pioglitazone [Actos] 45 mg PO DAILY 04/05/23 12/06/23 Nystatin 100,000Unit/gm Cream 1 applic TOPICAL DAILY 12/06/23 12/06/23 [Mycostatin Cream] lisinopriL [Zestril] 2.5 mg PO DAILY 12/06/23 12/06/23 metFORMIN HCL ER [Glucophage XR] 500 mg PO DAILY 12/06/23 12/06/23 Allergies Allergy/AdvReac Type Severity Reaction Status Date / Time No Known Allergies Allergy Verified 02/11/24 05:06 Review of Systems ROS Statement: Those systems with pertinent positive or pertinent negative responses have been documented in the HPI. ROS Other: All systems not noted in ROS Statement are negative. Constitutional: Denies: fever, chills Cardiovascular: Denies: chest pain, palpitations, edema, syncope Gastrointestinal: Reports: abdominal pain. Denies: nausea, vomiting, diarrhea, constipation Genitourinary: Denies: hematuria, testicular pain Musculoskeletal: Denies: back pain Skin: Denies: rash Past Medical History Past Medical History: Diabetes Mellitus, Hyperlipidemia, Hypertension History of Any Multi-Drug Resistant Organisms: ESBL Date of last positivie culture/infection: 11/16/23 MDRO Source:: urine Past Surgical History: Orthopedic Surgery Additional Past Surgical History / Comment(s): shoulder replacement, knee replacement, hip replacement, finger anputation Past Psychological History: No Psychological Hx Reported Smoking Status: Never smoker Past Alcohol Use History: None Reported Past Drug Use History: None Reported General Exam Limitations: no limitations General appearance: alert, in no apparent distress Head exam: Present: atraumatic, normocephalic Eye exam: Present: normal appearance Respiratory exam: Present: normal lung sounds bilaterally. Absent: respiratory distress, wheezes, rales, rhonchi, stridor, accessory muscle use Cardiovascular Exam: Present: regular rate, normal rhythm, normal heart sounds. Absent: systolic murmur, diastolic murmur, rubs, gallop GI/Abdominal exam: Present: soft, guarding, other (Suprapubic fullness). Absent: distended, rebound, rigid, mass, pulsatile mass, hernia Extremities exam: Present: normal inspection, normal capillary refill. Absent: pedal edema, calf tenderness Back exam: Present: normal inspection. Absent: CVA tenderness (R), CVA tenderness (L) Neurological exam: Present: alert Skin exam: Present: warm, dry, intact, normal color. Absent: rash Course Vital Signs 02/11/24 02/11/24 05:05 06:38 Temperature 98.2 F 97.7 F Pulse Rate 79 75 Respiratory 18 18 Rate Blood Pressure 164/89 144/86 O2 Sat by Pulse 94 L 98 Oximetry Medical Decision Making - Medical Decision Making Was pt. sent in by a medical professional or institution (, PA, TECHNICAL SALES SUPPORT MANAGER, urgent care, hospital, or retirement...) When possible be specific @ -[No] Did you speak to anyone other than the patient for history (EMS, parent, family, police, friend...)? What history was obtained from this source @ -[No] Did you review nursing and triage notes (agree or disagree)? Why? @ -[I reviewed and agree with nursing and triage notes] Were old charts reviewed (outside hosp., previous admission, EMS record, old EKG, old radiological studies, urgent care reports/EKG's, retirement records)? Report findings @ -[No old charts were reviewed] Differential Diagnosis (chest pain, altered mental status, abdominal pain women, abdominal pain men, vaginal bleeding, weakness, fever, dyspnea, syncope, headache, dizziness, GI bleed, back pain, seizure, CVA, palpatations, mental health, musculoskeletal)? @ -[not applicable] EKG interpreted by me (3pts min.). @ -[As above] X-rays interpreted by me (1pt min.). @ -[None done] CT interpreted by me (1pt min.). @ -[None done] U/S interpreted by me (1pt. min.). @ -[None done] What testing was considered but not performed or refused? (CT, X-rays, U/S, labs)? Why? @ -[None] What meds were considered but not given or refused? Why? @ -[None] Did you discuss the management of the patient with other professionals (professionals i.e. , PA, TECHNICAL SALES SUPPORT MANAGER, lab, RT, psych nurse, geriatric social work professor, soft work wrapper layer and examiner, teacher, electrical engineering drafting officer, pillowcase turner)? Give summary @ -[No] Was smoking cessation discussed for >3mins.? @ -[No] Was critical care preformed (if so, how long)? @ -[No] Were there social determinants of health that impacted care today? How? (Homelessness, low income, unemployed, alcoholism, drug addiction, transportation, low edu. Level, literacy, decrease access to med. care, penitentiary, rehab)? @ -[No] Was there de-escalation of care discussed even if they declined (Discuss DNR or withdrawal of care, Hospice)? DNR status @ -[No] What co-morbidities impacted this encounter? (DM, HTN, Smoking, COPD, CAD, Cancer, CVA, ARF, Chemo, Hep., AIDS, mental health diagnosis, sleep apnea, morbid obesity)? @ -[Urinary retention with chronic Miranda catheter Was patient admitted / discharged? Hospital course, mention meds given and route, prescriptions, significant lab abnormalities, going to OR and other pertinent info. @ -[Patient is an 83-year-old man with chronic Miranda catheter placement. The catheter was changed here and did have prompt drainage with resolution of symptoms Undiagnosed new problem with uncertain prognosis? @ -[No] Drug Therapy requiring intensive monitoring for toxicity (Heparin, Nitro, Insulin, Cardizem)? @ -[No] Were any procedures done? @ -[No] Diagnosis/symptom? @ -[Acute Miranda catheter malfunction Acute urinary retention Acute, or Chronic, or Acute on Chronic? @ -[Acute Uncomplicated (without systemic symptoms) or Complicated (systemic symptoms)? @ -[Uncomplicated Side effects of treatment? @ -[No] Exacerbation, Progression, or Severe Exacerbation? @ -[No] Poses a threat to life or bodily function? How? (Chest pain, [place], [place], pneumonia, PE, COPD, DKA, ARF, appy, cholecystitis, CVA, Diverticulitis, Homicidal, Suicidal, threat to staff... and all critical care pts) @ -[No] All treatments are based on ideal body weight as in ED triage - Lab Data Lab Results 02/11/24 Range/Units 06:00 Urine Color Colorless Urine Appearance Clear (Clear) Urine pH 5.5 (5.0-8.0) Ur Specific [place] 1.013 (1.001-1.035) Urine Protein Negative (Negative) Urine Glucose (UA) Negative (Negative) Urine Ketones Negative (Negative) Urine Blood Large H (Negative) Urine Nitrite Negative (Negative) Urine Bilirubin Negative (Negative) Urine Urobilinogen <2.0 (<2.0) mg/dL Ur Leukocyte Esterase Trace H (Negative) Urine RBC >182 H (0-5) /hpf Urine WBC 9 H (0-5) /hpf Urine Bacteria Many H (None) /hpf Urine Mucus Rare H (None) /hpf Disposition Clinical Impression: Retention of urine, unspecified, Miranda catheter problem Disposition: HOME SELF-CARE Condition: Good Instructions (If sedation given, give patient instructions): Miranda Catheter Placement and Care (ED) Is patient prescribed a controlled substance at d/c from ED?: No Referrals: Sergio Correa DO [Primary Care Provider] - 1-2 days
[2024-02-11 06:40] VITALS: BP 144/86; PULSE 75; TEMP 97.7
[2024-02-11 06:50] LABS: Appearance,Urine Clear (Clear); Bacteria,Urine Many /hpf; Bilirubin,Urine Negative (Negative); Blood,Urine Large (Negative); Color,Urine Colorless; Glucose,Urine (UA) Negative (Negative); Ketones,Urine Negative (Negative); Leukocyte Esterase,Urine Trace (Negative); Mucus,Urine Rare /hpf; Nitrite,Urine Negative (Negative); PH, Urine 5.5 (5.0-8.0); Protein,Urine Negative (Negative); RBC,Urine >182 /hpf (0-5); Specific Gravity,Urine 1.013 (1.001-1.035); Urobilinogen,Urine <2.0 mg/dL (<2.0); WBC,Urine 9 /hpf (0-5)
== END 2024-02-11 06:40 | disposition home or self-care (01) ==
LOC: EC 05:00
DX: T83.098A Other mechanical complication of other urinary catheter, initial encounter (principal); R33.9 Retention of urine, unspecified
CPT/HCPCS: 51702; 51798; 81001; 87077; 87086; 87186; 99283

== ENCOUNTER 2024-05-05 17:32 | Emergency (ER) | payer MEDICARE ==
[2024-05-05 18:01] LABS: Glucose,Whole Blood 213 mg/dL (70-110)
[2024-05-05 18:04] VITALS: RESP 18
[2024-05-05 19:15] LABS: Appearance,Urine Clear (Clear); Bacteria,Urine Occasional /hpf; Bilirubin,Urine Negative (Negative); Blood,Urine Small (Negative); Color,Urine Colorless; Glucose,Urine (UA) Negative (Negative); Ketones,Urine Negative (Negative); Leukocyte Esterase,Urine Large (Negative); Mucus,Urine Rare /hpf; Nitrite,Urine Positive (Negative); Protein,Urine Negative (Negative); RBC,Urine 17 /hpf (0-5); Specific Gravity,Urine 1.009 (1.001-1.035); Urobilinogen,Urine <2.0 mg/dL (<2.0); WBC,Urine 22 /hpf (0-5)
[2024-05-05] MEDS: LIDOCAINE 1%-EPI 1:100,000 20 ML VIAL SQ STA (19:37)
[2024-05-05 20:00] LABS: Influenza A Not Detected (Not Detectd); Influenza B Not Detected (Not Detectd); RSV Not Detected (Not Detectd)
--- NOTE | 2024-05-05 20:00 | XR ---
EXAMINATION TYPE: XR chest 2V DATE OF EXAM: 05/05/2024 7:54 PM COMPARISON: Chest radiographs from 04/05/2023 TECHNIQUE: XR chest 2V Frontal and lateral views of the chest. CLINICAL INDICATION:Male, 83 years old with history of runny nose, cold symptoms; FINDINGS: Lungs/Pleura: There is no evidence of pleural effusion, focal consolidation, or pneumothorax. Pulmonary vascularity: Bilateral central pulmonary vascular congestion. Heart/mediastinum: Cardiomediastinal silhouette is enlarged and stable. Atherosclerotic calcificatio ns are seen in the aorta. Musculoskeletal: Multiple level degenerative disc disease changes seen throughout the spine. Bilatera l shoulder arthroplasty changes. Bilateral AC joint arthropathy. IMPRESSION: Cardiomegaly with bilateral central pulmonary vascular congestion. [facility], , 05/05/2024 7:57 PM
--- NOTE | 2024-05-05 20:40 | ED ---
General Adult HPI - General Chief complaint: Skin/Abscess/Foreign Body Stated complaint: Cath issue Time Seen by Provider: 05/05/24 18:41 Source: patient, family Mode of arrival: wheelchair Limitations: no limitations - History of Present Illness Initial comments: Dictation was produced using [employer] dictation software. please excuse any grammatical, word or spelling errors. Chief Complaint: 83-year-old male sent in from home for possible infected suprapubic catheter History of Present Illness: Patient 83-year-old male he had a suprapubic catheter placed approximately 1 month ago. Patient has home visiting nurse the nurse looked at his suprapubic catheter and is worried that it is infected. Patient has any pain or drainage coming from the site. Patient has been having symptoms of cold recently. States that he has nasal congestion runny nose. Denies any fever. No cough. No obvious sick contacts. The ROS documented in this emergency department record has been reviewed and confirmed by me. Those systems with pertinent positive or negative responses have been documented in the HPI. All other systems are other negative and/or noncontributory. - Related Data Home Medications Medication Instructions Recorded Confirmed Atorvastatin [Lipitor] 40 mg PO HS 08/19/16 05/05/24 Furosemide [Lasix] 40 mg PO DAILY 08/19/16 05/05/24 Tamsulosin HCl [Flomax] 0.8 mg PO HS 08/19/16 05/05/24 DULoxetine HCL [Cymbalta] 30 mg PO DAILY 01/04/23 05/05/24 Metoprolol Tartrate 25 mg PO BID 01/04/23 05/05/24 sitaGLIPtin [Januvia] 100 mg PO DAILY 01/04/23 05/05/24 Aspirin EC [Ecotrin Low Dose] 81 mg PO DAILY 04/05/23 05/05/24 Calcium Carbonate/Vitamin D3 1 tab PO DAILY 04/05/23 05/05/24 [Calcium 500-Vit D3 400 Chew Tb] Doxazosin [Cardura] 4 mg PO HS 04/05/23 05/05/24 Pioglitazone [Actos] 45 mg PO DAILY 04/05/23 05/05/24 Nystatin 100,000Unit/gm Cream 1 applic TOPICAL BID PRN 12/06/23 05/05/24 [Mycostatin Cream] lisinopriL [Zestril] 2.5 mg PO DAILY 12/06/23 05/05/24 metFORMIN HCL ER [Glucophage XR] 500 mg PO DAILY 12/06/23 05/05/24 hydrOXYzine HCL [Hydroxyzine HCl] 25 mg PO TID PRN 03/24/24 05/05/24 Nystatin 100,000 Unit/gm Powd 1 applic TOPICAL BID PRN 05/05/24 05/05/24 [Mycostatin Powder] Sulfamethox-Tmp 800-160Mg [Bactrim 1 tab PO BID 05/05/24 05/05/24 DS 800-160 mg] Previous Rx's Medication Instructions Recorded Cefpodoxime Proxetil [Vantin] 200 mg PO Q12HR 10 Days #20 tab 05/05/24 Allergies Allergy/AdvReac Type Severity Reaction Status Date / Time adhesive Allergy Rash/Hives Verified 05/05/24 20:38 Review of Systems ROS Statement: Those systems with pertinent positive or pertinent negative responses have been documented in the HPI. ROS Other: All systems not noted in ROS Statement are negative. Past Medical History Past Medical History: Diabetes Mellitus, Hyperlipidemia, Hypertension History of Any Multi-Drug Resistant Organisms: ESBL Date of last positivie culture/infection: 03/20/24 MDRO Source:: urine Past Surgical History: Orthopedic Surgery Additional Past Surgical History / Comment(s): shoulder replacement, knee replacement, hip replacement, finger amputation, Suprapubic catheter Past Psychological History: No Psychological Hx Reported Smoking Status: Never smoker Past Alcohol Use History: None Reported Past Drug Use History: None Reported General Exam - General Exam Comments Initial Comments: PHYSICAL EXAM: General Impression: Alert and oriented x3, not in acute distress HEENT: Normocephalic atraumatic, extra-ocular movements intact, pupils equal and reactive to light bilaterally, mucous membranes moist. Cardiovascular: Heart regular rate and rhythm Chest: Able to complete full sentences, no retractions, no tachypnea Abdomen: abdomen soft, non-tender, non-distended, no organomegaly Musculoskeletal: Pulses present and equal in all extremities, no peripheral edema Motor: no focal deficits noted Neurological: CN II-XII grossly intact, no focal motor or sensory deficits noted Skin: Intact with no visualized rashes, suprapubic site clean dry intact Psych: Normal affect and mood Limitations: no limitations Course Vital Signs 05/05/24 17:58 Temperature 97.8 F Pulse Rate 67 Respiratory 18 Rate Blood Pressure 109/52 O2 Sat by Pulse 95 Oximetry Medical Decision Making - Medical Decision Making Was pt. sent in by a medical professional or institution (, PA, SLIDE ATTENDANT, urgent care, hospital, or shelter...) When possible be specific @ -No Did you speak to anyone other than the patient for history (EMS, parent, family, police, friend...)? What history was obtained from this source @ -No Did you review nursing and triage notes (agree or disagree)? Why? @ -I reviewed and agree with nursing and triage notes Were old charts reviewed (outside hosp., previous admission, EMS record, old EKG, old radiological studies, urgent care reports/EKG's, shelter records)? Report findings @ -No old charts were reviewed Differential Diagnosis (chest pain, altered mental status, abdominal pain women, abdominal pain men, vaginal bleeding, musculoskeletal, weakness, fever, dys pnea, syncope, headache, dizziness, GI bleed, back pain, seizure, CVA, palpatations, mental health)? @ -Surgical site infection, COVID, influenza EKG interpreted by me (3pts min.). @ -None done X-rays interpreted by me (1pt min.). @ -Chest x-ray is nonacute CT interpreted by me (1pt min.). @ -None done U/S interpreted by me (1pt. min.). @ -None done What testing was considered but not performed or refused? (CT, X-rays, U/S, labs)? Why? @ -None What meds were considered but not given or refused? Why? @ -None Was smoking cessation discussed for >3mins.? @ -No Were there social determinants of health that impacted care today? How? (Homelessness, low income, unemployed, alcoholism, drug addiction, transportation, low edu. Level, literacy, decrease access to med. care, custodial, rehab)? @ -No Was there de-escalation of care discussed even if they declined (Discuss DNR or withdrawal of care, Hospice)? DNR status @ -No What co-morbidities impacted this encounter? (DM, HTN, Smoking, COPD, CAD, Cancer, CVA, ARF, Chemo, Hep., AIDS, mental health diagnosis, sleep apnea, morbid obesity)? @ -Suprapubic catheter Was patient admitted / discharged? Hospital course, mention meds given and r oute, prescriptions, significant lab abnormalities, going to OR and other pertinent info. @ -83-year-old male sent in from home by home health care nurse for possible infected suprapubic catheter site. Patient site does not appear to be erythematous indurated. There is small amount of drainage. Patient is complaining of secondary issue of URI symptoms. Vital signs are stable. Physical examination is benign. Urinalysis shows nitrite positive urine which is likely colonized. Viral testing is negative. Chest x-ray is nonacute. Patient reports hypertension states she had torn. Stitch was placed to secure the suprapubic catheter from traction and accidental dislodgment. Patient given antibiotics to cover for UTI along with cellulitis. Patient discharged advised follow-up with primary care doctor Did you discuss the management of the patient with other professionals (professionals i.e. , PA, SLIDE ATTENDANT, lab, RT, psych nurse, social security specialist, reducing salon attendant, teacher, upscale security officer, shoe parts caser)? Give summary @ -No Was critical care preformed (if so, how long)? @ -No Undiagnosed new problem with uncertain prognosis? @ -No Drug Therapy requiring intensive monitoring for toxicity (Heparin, Nitro, Insulin, Cardizem)? @ -No Were any procedures done? @ -No Diagnosis/symptom? Acute, or Chronic, or Acute on Chronic? Uncomplicated (without systemic symptoms) or Complicated (systemic symptoms)? @ -Cellulitis, URI Side effects of treatment? @ -No Exacerbation, Progression, or Severe Exacerbation? @ -No Poses a threat to life or bodily function? How? (Chest pain, USA, PA, pneumonia, PE, COPD, DKA, ARF, appy, cholecystitis, CVA, Diverticulitis, Homicidal, Suicidal, threat to staff... and all critical care pts) @ -No - Lab Data Lab Results 05/05/24 05/05/24 05/05/24 Range/Units 18:00 18:57 18:59 POC Glucose (mg/dL) 213 H (70-110) mg/dL POC Glu Merchandising Stock Associate MAGGIE Chahal Urine Color Colorless Urine Appearance Clear (Clear) Urine pH 6.0 (5.0-8.0) Ur Specific [place] 1.009 (1.001-1.035) Urine Protein Negative (Negative) Urine Glucose (UA) Negative (Negative) Urine Ketones Negative (Negative) Urine Blood Small H (Negative) Urine Nitrite Positive (Negative) Urine Bilirubin Negative (Negative) Urine Urobilinogen <2.0 (<2.0) mg/dL Ur Leukocyte Esterase Large H (Negative) Urine RBC 17 H (0-5) /hpf Urine WBC 22 H (0-5) /hpf Urine Bacteria Occasional H (None) /hpf Urine Mucus Rare H (None) /hpf Influenza Type A (PCR) Not Detected (Not Detectd) Influenza Type B (PCR) Not Detected (Not Detectd) RSV (PCR) Not Detected (Not Detectd) SARS-CoV-2 (PCR) Not Detected (Not Detectd) Disposition Clinical Impression: Cellulitis Disposition: HOME SELF-CARE Condition: Fair Instructions (If sedation given, give patient instructions): Cellulitis (ED) Prescriptions: Cefpodoxime Proxetil [Vantin] 200 mg PO Q12HR 10 Days #20 tab Is patient prescribed a controlled substance at d/c from ED?: No Referrals: Sergio Correa DO [Primary Care Provider] - 1-2 days Time of Disposition: 21:04
[2024-05-05 21:40] VITALS: BP 114/60; PULSE 68; TEMP 98
== END 2024-05-05 21:40 | disposition home or self-care (01) ==
LOC: EC 17:32
DX: T83.518A Infection and inflammatory reaction due to other urinary catheter, initial encounter (principal); A41.50 Gram-negative sepsis, unspecified; J06.9 Acute upper respiratory infection, unspecified; Z88.8 Allergy status to other drugs, medicaments and biological substances
CPT/HCPCS: 36415; 71046; 81001; 87086; 87636; 99283